=== PATIENT | female | born 1980 | race Caucasian/White ===

== ENCOUNTER 2020-09-26 15:37 | Outpatient (REF) | payer OTHER, SELFPAY ==
[2020-09-26 15:58] LABS: MANUAL DIFF FLAG NO
[2020-09-26 16:01] LABS: Basophils Percent Auto 0.2 % (0-2); Eosinophils Absolute Auto 0.1 X10*3/uL (0.0-0.4); Eosinophils Percent Auto 1.2 % (0-4); Hemoglobin 10.4 g/dl (12.0-16.0); Imm Gran Abs Auto 0.01 X10*3/uL (0.00-0.03); Imm Gran Pct Auto 0.2 % (0.0-0.4); Lymphocytes Absolute Auto 1.9 X10*3/uL (1.2-4.9); Lymphocytes Percent Auto 31.3 % (20-40); Mean Corpuscular HGB Conc 32.5 g/dl (31.0-35.0); Mean Corpuscular Hemoglobin 31.1 pg (27.0-33.0); Mean Corpuscular Volume 95.8 fL (80-98); Mean Platelet Volume 9.2 fL (9.4-12.3); Monocytes Absolute Auto 0.5 X10*3/uL (0.1-1.2); Monocytes Percent Auto 7.6 % (2-11); Neutrophils Absolute Auto 3.6 X10*3/uL (2.0-8.3); Neutrophils Percent Auto 59.5 % (45-73); Platelet Count 249 X10*3/uL (160-400); Red Blood Count 3.34 X10*6/uL (4.20-5.50); Red Cell Distribution Width 14.3 % (11.0-16.0)
[2020-09-26 16:35] LABS: Anion Gap 11 (12-20); Blood Urea Nitrogen 10 mg/dL (9-16); Calcium 8.5 mg/dL (8.4-10.2); Carbon Dioxide 26 mmol/L (22-29); Chloride 107 mmol/L (96-108); Estimated Glomerular Filt Rate > 60; Glucose Random 86 mg/dL (60-115); Potassium 3.7 mmol/L (3.3-5.1); Sodium 140 mmol/L (135-145)
[2020-09-26 16:56] LABS: Thyroid Stimulating Hormone 1.23 uIU/mL (0.32-4.0)
[2020-09-29 13:10] LABS: Folate 8.7 ng/mL (> or = 4.0); Vitamin B12 189 pg/mL (200-900)
== END 2020-09-26 15:38 | disposition home or self-care (01) ==
LOC: HO.LAB 15:37
PROVIDERS: Visit Provider Psychiatry & Neurology Neurology
DX: G43.909 Migraine, unspecified, not intractable, without status migrainosus (principal)
CPT/HCPCS: 36415; 80048; 82607; 82746; 84443; 85025

== ENCOUNTER 2020-12-06 15:58 | Outpatient (REF) | payer OTHER, SELFPAY ==
--- NOTE | ~2020-12-06 | MR_ITS ---
EXAMINATION: MRI OF THE BRAIN WITHOUT CONTRAST CLINICAL INFORMATION: Migraine with progressive memory problems. COMPARISON: There are no prior studies available for comparison. TECHNIQUE: MRI of the brain was obtained using routine sequences without contrast. FINDINGS: No diffusion abnormalities are identified to suggest an acute or subacute infarct. No mass effect or midline shift is seen. The ventricles are normal in size. Brain parenchymal signal is unremarkable. No extra-axial fluid collections are seen. The brainstem and cerebellum are normal. No pathologic magnetic susceptibility artifact is identified on the gradient refocused acquisition. The craniovertebral junction, marrow signal, and midline structures are normal. The major intracranial flow-voids at the level of the eek of Pe[place] are preserved. The dural venous sinus flow-voids are maintained. The mastoid air cells are well-aerated. There is mucoperiosteal thickening in the sphenoid and left greater than right ethmoid sinuses. MR/MR head/brain wo con IMPRESSION: 1. There are no acute bleeds or infarcts. No masses are demonstrated. There is mild paranasal sinus disease.
== END 2020-12-06 15:59 | disposition home or self-care (01) ==
LOC: HO.MRI 15:58
PROVIDERS: Visit Provider Psychiatry & Neurology Neurology
DX: G43.909 Migraine, unspecified, not intractable, without status migrainosus (principal)
CPT/HCPCS: 70551

== ENCOUNTER 2022-06-27 13:59 | Outpatient (REF) | payer OTHER, SELFPAY ==
--- NOTE | ~2022-06-27 | CT_ITS ---
EXAMINATION: CT HEAD WITHOUT CONTRAST CLINICAL INFORMATION: Tension headache. COMPARISON: MRI brain 12/06/2020. TECHNIQUE: Contiguous axial imaging was performed from the skull base to vertex without intravenous administration of contrast. This CT examination was performed using dose optimization techniques as appropriate, variously including the following: *Automated exposure control *Adjustment of mA and/or kV according to patient size (this includes techniques or standardized protocols for targeted exams where dose is matched to indication/reason for exam; i.e. extremities or head) *Use of iterative reconstruction technique DLP: 658 mGy-cm. FINDINGS: There is no acute intra-axial or extra-axial bleed, masses or midline shift the lateral ventricles are symmetrical in size and configuration without enlargement. There is no acute infarction evolution. No edema. The spears to white matter there differentiation is maintained normal. Bone windows reveal no calvarial abnormality. CT/CT head/brain wo IV con IMPRESSION: No acute intracranial process seen.
== END 2022-06-27 14:00 | disposition home or self-care (01) ==
LOC: HO.CT 13:59
PROVIDERS: Visit Provider Psychiatry & Neurology Neurology
DX: G44.209 Tension-type headache, unspecified, not intractable (principal)
CPT/HCPCS: 70450

== ENCOUNTER 2024-06-17 15:49 | Outpatient (REF) | payer OTHER, SELFPAY ==
--- NOTE | ~2024-06-17 | CT_ITS ---
EXAMINATION: CT HEAD WITHOUT CONTRAST CLINICAL INFORMATION: Migraine COMPARISON: CT brain 512 TECHNIQUE: Contiguous axial imaging was performed from the skull base to vertex without intravenous administration of contrast. This CT examination was performed using dose optimization techniques as appropriate, variously including the following: *Automated exposure control *Adjustment of mA and/or kV according to patient size (this includes techniques or standardized protocols for targeted exams where dose is matched to indication/reason for exam; i.e. extremities or head) *Use of iterative reconstruction technique DLP: 704 FINDINGS: There is no acute intra-axial, extra-axial bleed, masses or midline shift. There is no acute infarction in evolution. There is no edema the murray to white matter differentiation is maintained normal. The lateral ventricles are symmetrical in size and configuration without enlargement. Bone windows reveal no calvarial abnormality. There is no scalp soft tissue abnormality. Bilateral paranasal sinuses and mastoid air cells are well-aerated. There is no scalp soft tissue abnormality. CT/CT head/brain wo IV con IMPRESSION: No acute intracranial process seen. Electronically signed by: Bruce Stewart MD 06/17/2024 04:35 PM EDT
--- OUTSIDE RECORDS SUMMARY | 2024-06-17 15:52 | XMS_ITS | Encounter Summary ---
Author Organization [facility] Address [address] [place] [address] Care Team Providers Care Bilingual Receptionist Name Role Phone Jed Alonso MD Primary Care Provider [phone] Reason for Visit * Reason Onset Date Comments PRIOR AUTHORIZATION 06/14/2024 Encounter Details Date Type Department Care Team ([facility] st Contact Info) Description 06/14/2024 Telephone Endocrinology - [place] [address] [place] [address] Daniela Torres PA [address] [place] [address] PRIOR AUTHORIZATION Social History Tobacco Use Types Packs/Day Years Used Date Smoking Tobacco: Never Smokeless Tobacco: Never Alcohol Use Standard Drinks/Week Comments No 0 (1 standard drink = 0.6 oz pur e alcohol) Comments Unknown Sex and Gender Information Value Date Recorded Sex Assigned at Female 05/13/2024 1:43 PM EDT Legal Sex Female 12:14 AM EST Gender Identity Female 05/13/2024 1:43 PM EDT Sexual Orientation Straight 05/13/2024 1: 43 PM EDT documented as of this encounter Progress Notes * Ella Patterson - 06/14/2024 2:45 PM EDT Prior Authorization for Medication-do not complete and send this encounter unless you have the fax from the pharmacy. Is this a Cover My Meds request: [place] of Medication Dexcom G6 Sensors Dose of Medication What is the RX # from the faxed refill? [id number] How does patient take this med? Change sensor every 10 days, What Pharmacy did the fax come from: [facility] fax #: [phone] [employer] Information from fax: What Prescription Plan does the patient have? [email or web address] BIN/PCN if applicable: [id number] Cardholder ID: [id number] Person Code: [id number] Relationship Code: Insured Help desk phone: [phone] documented in this encounter Plan of Treatment Upcoming Encounters Date Type Department Care Team (Late st Contact Info) Description 07/07/2024 9:15 AM EDT Office Visit Bariatric Surgery - [place] [address] [phone] Orestes Yepez MD [address] [address] 09/02/2024 9:00 AM EDT Office Visit [facility] Hematology Oncology [address] [place] [phone] Opal Flores MD [address] [place] [phone] 11/25/2024 10:30 AM EDT Office Visit Internal Medicine [facility] 175 [facility] [address] [place] [phone] Jed Alonso MD [address] [address] documented as of this encounter Visit Diagnoses Not on filedocumented in this encounter Care Teams Bilingual Receptionist Relationship Specialty Start Date End Date Jed Alonso MD [address] [address] PCP - General Internal Medicine 01/01/18 documented as of this encounter
--- OUTSIDE RECORDS SUMMARY | 2024-06-17 15:52 | XMS_ITS | Clinical Summary ---
Author Organization [facility] Address [address] [place] [address] Care Team Providers Care Accounts Receivable Collector Name Role Phone Jed Alonso MD Primary Care Provider Unavailab le Allergies Active Allergy Reactions Criticality Noted Date Comments Diphenhydramine 05/19/2022 Penicillins 05/19/2022 Tuberculin Purified Protein Derivative 05/19/2022 Medications Medication Sig Dispensed Refills Start Date End Date Status atorvastatin (LIPITOR) tablet 20 mg 0 04/22/2022 Active busPIRone (BUSPAR) 10 MG tablet TAKE 1 TABLET BY MOUTH 3 TIMES DAILY FOR ANXIETY 0 04/22/2022 Active desvenlafaxine (PRISTIQ) 50 MG 24 hr tablet LAURA DELMIS TABLETA POR VIA ORAL CADA MANANA PARA ANSIEDAD Y DEPRESION 0 05/05/2022 Active dicyclomine (BENTYL) 10 MG capsule LAURA 1 CAPSULA POR VIA ORAL CUATRO VECES AL STANLEY ANTES DE LAS COMIDAS Y CADA NOCHE 0 04/22/2022 Active Trulicity 0.75 MG/0.5ML subcutaneous pen-injector INYECTAR 0.75MG POR VIA SUBCUTANEA CADA 7 FAGAN 0 05/08/2022 Active NovoLOG FLEXPEN 100 UNIT/ML injection PLEASE SEE ATTACHED FOR DETAILED DIRECTIONS 0 04/14/2022 Active Lantus SoloStar 100 UNIT/ML injection INYECTAR 30 UNIDADES POR VIA SUBCUTANEA TODO LOS FAGAN EN JULIO CESAR MANANA 0 05/05/2022 Active LORazepam (ATIVAN) 0.5 MG tablet LAURA DELMIS TABLETA POR VIA ORAL DELMIS VEZ AL STANLEY KARLOS SEA NECESARIO PARA ANSIEDAD 0 02/21/2022 Active lisinopril (PRINIVIL,ZESTRIL) tablet 20 mg LAURA 1 Y 1/2 TABLETAS POR VIA ORAL DIARIAMENTE 0 04/22/2022 Active zolpidem (AMBIEN) 10 MG tablet LAURA 1 TABLETA POR VIA ORAL A LA HORA DE ACOSTARSE PARA DORMIR 0 05/11/2022 Active ferrous sulfate 324 (65 Fe) MG EC tablet LAURA DELMIS (1) TABLETA POR VIA ORAL DELMIS VEZ AL STANLEY 30 tablet 11 07/02/2022 Active Active Problems Problem Noted Date Diagnosed Date Postoperative hematoma of sk in following dermatologic procedure 07/01/2022 Easy bruising 05/19/2022 Ecchymosis 05/19/2022 Postoperative hematoma of nunez bcutaneous tissue following non-dermatologic procedure 05/19/2022 Anxiety 05/19/2022 Night sweats 05/19/2022 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 05/19/2022 Family History Medical History Relation Name Comments Stroke Mother Cancer Paternal Grandmother Relation Name Status Comments Mother Paternal Grandmother Social History Tobacco Use Types Packs/Day Years Used Date Smoking Tobacco: Never Smokeless Tobacco: Never Tobacco Cessation:Counseling Given: Not Answered Alcohol Use Standard Drinks/Week Comments Not Currently 0 (1 standard drink = 0.6 oz pur e alcohol) Sex and Gender Information Value Date Recorded Sex Assigned at Not on file Gender Identity Not on file Sexual Orientation Not on file Job Start Date Occupation Industry Not on file Not on file Not on file Last Filed Vital Signs Vital Sign Reading Time Taken Comments Blood Pressure 126/80 09/03/2023 8:49 AM EDT Pulse 87 09/03/2023 8:49 AM EDT Temperature 36.7 ??C (98 ??F) 09/03/2023 8:49 AM EDT Respiratory Rate - - Oxygen Saturation 97% 09/03/2023 8:49 AM EDT Inhaled Oxygen Concentration - - Weight 75.2 kg (165 lb 12.8 oz) 09/03/2023 8:49 AM EDT Height 162.6 cm (5' 4 ) 09/03/2023 8:49 AM EDT Body Mass Index 28.46 09/03/2023 8:49 AM EDT Plan of Treatment Health Maintenance Due Date Last Done Comments Hepatitis B Vaccines (1 of 3 - 3-dose series) 1978 Hepatitis C Screening 1978 COVID-19 Vaccine (#1) 01/20/1979 Depression Screening 1990 BMI Counseling 1996 Preventative Health Evaluation 1996 DTap / Tdap / Td (1 - Tdap) 1997 Cervical Cancer Screening (P ap Smear) 07/22/1999 Colon Cancer Screening (Colonoscopy) 07/22/2023 Influenza Vaccine (#1) 2023 Pneumococcal Vaccine Aged Out 11/19/2015 No long er eligible based on patient's age to complete this topic RSV Ped < 20 months Aged Out No longe r eligible based on patient's age to complete this topic Care Teams Accounts Receivable Collector Relationship Specialty Start Date End Date Jed Alonso MD PCP - General Internal Medicine 03/04/22
--- OUTSIDE RECORDS SUMMARY | 2024-06-17 15:52 | XMS_ITS | Clinical Summary ---
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 Name Role Phone Jed Alonso MD Primary Care Provider [phone] Allergies Active Allergy Reactions Criticality Noted Date Comments Diphenhydramine 05/19/2022 Oxycodone Hives High 09/29/2022 Hives all over the body Penicillins 05/19/2022 Tuberculin, Purified Protein Derivative 05/19/2022 Medications busPIRone (BUSPAR) 10 mg tablet TAKE 1 TABLET BY MOUTH 3 TIMES DAILY FOR ANXIETY 04/23/19 23 Active desvenlafaxine succinate (PRISTIQ) 50 mg 24 hr tablet LAURA DELMIS TABLETA POR VIA ORAL CADA MANANA PARA ANSIEDAD Y DEPRESION 05/06/19 23 Active ferrous sulfate 324 mg (65 mg elemental iron) EC tablet LAURA DELMIS (1) TABLETA POR VIA ORAL DELMIS VEZ AL STANLEY 07/03/19 23 Active LORazepam (ATIVAN) 0.5 mg tablet LAURA DELMIS TABLETA POR VIA ORAL DELMIS VEZ AL ST[place] KARLOS SEA NECESARIO PARA ANSIEDAD 02/21/19 23 Active zolpidem (AMBIEN) 10 mg tablet LAURA 1 TABLETA POR VIA ORAL A LA HORA DE ACOSTARSE PARA DORMIR 05/12/19 23 Active cyclobenzaprine (FLEXERIL) 5 mg tablet LAURA 1 TABLETA POR VIA ORAL DELMIS VEZ AL STANLEY KARLOS SEA NECESARIO PARA ESPASMOS MUSCULARES A LA HORA DE ACOSTARSE 30 tablet 10 12/27/19 24 Active dicyclomine (BENTYL) 10 mg capsule LAURA 1 CAPSULA POR VIA ORAL CUATRO VECES AL STANLEY ANTES DE COMIDAS Y POR LA NOCHE 120 capsule 03/17/19 25 Active lisinopriL (PRINIVIL,ZESTRIL ) 20 mg tablet LAURA 1 Y 1/2 TABLETAS POR VIA ORAL DIARIAMENTE 45 tablet 03/17/19 25 Active atorvastatin (LIPITOR) 20 mg tablet LAURA 1 TABLETA POR VIA ORAL DELMIS VEZ AL STANLEY A LA HORA DE ACOSTARSE 30 tablet 03/17/19 25 Active FreeStyle Lancets 28 gauge lancets USE PARA EXAMINAR LA AZUCAR EN LA LIVAN DOS VECES AL STANLEY 100 each 03/17/19 25 Active blood-glucose sensor (Dexcom G7 Sensor) device Change sensor every 10 days 9 each 03/17/19 25 Active senna 8.6 mg tabletIndications :Inflammatory bowel diseases (IBD) LAURA 1 TABLETA POR VIA ORAL DELMIS VEZ AL STANLEY 30 tablet 03/29/19 25 Active pantoprazole (PROTONIX) 40 mg EC tabletIndications :LUQ pain Take 1 tablet (40 mg total) by mouth 1 (one) time each day before breakfast. Do not crush, chew, or split. 90 tablet 04/05/19 25 026 Active semaglutide (OZEMPIC) 1 mg/dose (4 mg/3 mL) injection penIndications:Ty pe 2 diabetes mellitus without complication, with long-term current use of insulin ([facility] V24, [facility] V28) Inject 1 mg under the skin every 7 (seven) days. 3 mL 04/14/19 25 Active blood sugar diagnostic (FreeStyle Lite Strips) test strip USE PARA EXAMINAR LA AZUCAR EN LA LIVAN SIMON VECES AL STANLEY. 100 strip 04/17/19 25 Active albuterol 2.5 mg /3 mL (0.083 %) nebulizer solution Take 3 mL (2.5 mg total) by nebulization every 4 (four) hours if needed for wheezing. 375 mL 04/17/19 25 Active insulin glargine U-300 (Toujeo SoloStar U-300 Insulin) 300 unit/mL (1.5 mL) CONCENTRATED injection pen 8 units SC at bedtime, when not in insulin pump 15 mL 04/27/19 25 Active pantoprazole (PROTONIX) 40 mg EC tablet Take 1 tablet (40 mg total) by mouth 1 (one) time each day. Do not crush, chew, or split. 30 each 11 05/03/19 25 026 Active ammonium lactate (AMLACTIN) 12 % cream Apply topically if needed for dry skin. 770 g 2 05/20/19 25 026 Active vitamin A 3,000 mcg (10,000 unit) capsule LAURA 1 CAPSULA POR VIA ORAL DELMIS VEZ AL STANLEY 30 capsule 11 06/10/19 25 Active vitamin A 3,000 mcg (10,000 unit) tabletIndications :Intestinal malabsorption following gastrectomy Take 1 tablet (10,000 Units total) by mouth 1 (one) time each day. 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 9) with comorbidity (CMS/HCC V24, CMS/HCC V28) 05/26/2017 Bipolar 1 disorder (CMS/HCC V24, CMS/[facility] V28) Nephrolithiasis 01/15/2017 Asthma 07/30/2016 Vitamin D deficiency 11/19/2015 PTSD (post-traumatic stress disorder) 09/01/2014 Encounters Date Type Department Care Team Description 06/14/2024 Telephone Endocrinology - [place] [id number] [place], [place] [phone] Daniela Torres PA PRIOR AUTHORIZATION 06/08/2024 3:45 PM EDT - 06/08/2024 11:59 PM EDT Hospital Encounter [facility] CT Scan [address] [place] [phone] LUQ pain; Rectal bleeding; History of gastric restrictive surgery; Hemorrhoids, unspecified hemorrhoid type Discharge Disposition: Home or Self Care 05/20/2024 9:45 AM EDT Office Visit Internal Medicine [facility] [address] [phone] Jed Alonso MD Diabetes mellitus type 2 in nonobese ([facility] V24, [facility] V28) (Primary Dx); Current mild episode of major depressive disorder, unspecified whether recurrent ([facility] V24); Hypercholesterolemia; Neck pain 05/19/2024 10:45 AM EDT Consult Orthopedic Surgery - [place] [address] [facility] [address] [place] [phone] Canelo Fink DPM Controlled type 2 diabetes with neuropathy ([facility] V24, [facility] V28) (Primary Dx); Left foot pain; Lumbosacral radiculopathy; Bunion, left 05/02/2024 3:00 PM EDT Office Visit Gastroenterology [address] [phone] Spencer Singh PA LUQ pain (Primary Dx); Rectal bleeding; History of gastric restrictive surgery; Hemorrhoids, unspecified hemorrhoid type; H/O: iron deficiency anemia; Gastroesophageal reflux disease with esophagitis without hemorrhage 04/25/2024 Telephone Endocrinology - [address] [phone] Daniela Torres PA Medication Problem 04/14/2024 11:00 AM EST Office Visit Endocrinology [address] [phone] Daniela Torres PA Type 2 diabetes mellitus without complication, with long-term current use of insulin (CMS/HCC V24, CMS/HCC V28) (Primary Dx) 04/07/2024 Telephone Endocrinology [place] [address] [place] [phone] Daniela Torres PA 04/05/2024 8:45 AM EST Office Visit Bariatric Surgery - [place] [address] [facility] [address] [place] [phone] Orestes Yepez MD Blood in stool (Primary Dx); LUQ pain; Class 1 obesity due to excess calories with serious comorbidity and body mass index (BMI) of 30.0 to 30.9 in adult; Intestinal malabsorption following gastrectomy 04/01/2024 9:45 AM EST Office Visit Pulmonolgy - [place] [address] [facility] [address] [place] [phone] Crys Rizzo MD Mild persistent asthma, unspecified whether complicated (Primary Dx) 03/22/2024 Telephone Endocrinology [address] [phone] Sonya Breen MA from Last 3 Months Surgical History Surgery Date Site/Laterality Comments OTHER SURGICAL HISTORY 02/20/19 PROCEDURE: MN LAPS GSTR RSTCV PX W/BYP LENNY-EN-Y LIMB <150 CM; COMMENT: Marleni CARPAL TUNNEL RELEASE PROCEDURE: HISTORICAL CARPAL TUNNEL REL SECTION PROCEDURE: HISTORICAL DELIVERY OTHER SURGICAL HISTORY PROCEDURE: HISTORY OTHER; COMMENT: Breast reduction OTHER SURGICAL HISTORY Left PROCEDURE: HISTORY OTHER; COMMENT: Ulnar nerve surgery OTHER SURGICAL HISTORY PROCEDURE: HISTORY OTHER; COMMENT: Hemorrhoids UPPER GASTROINTESTINAL ENDOSCOPY 04/2017 PROCEDURE: MN UPPER GI ENDOSCOPY PERFORMED; COMMENT: Performed by Dr. Pradhan in April 2017 UPPER GASTROINTESTINAL ENDOSCOPY 07/06/19 PROCEDURE: MN UPPER GI ENDOSCOPY PERFORMED; COMMENT: Normal post gastric bypass appearance, no ulcers. UPPER GASTROINTESTINAL ENDOSCOPY 01/11/20 PROCEDURE: UPPER GI ENDOSCOPY/EXAM; COMMENT: gastric bypass, random biopsy with mild chronic inflammation, NO H.pylori OTHER SURGICAL HISTORY PROCEDURE: HISTORICAL PANNICULECTOMY; COMMENT: Performed in January 2021 with subsequent hematoma requiring 2 units of blood ESOPHAGOGASTRODUODENOSCOPY 08/15/19 22 PROCEDURE: MN ESOPHAGOGASTRODUODENOSCOPY TRANSORAL DIAGNOSTIC; COMMENT: consistent with gastric bypass, no ulcers Medical History Medical History Date Comments Complications of bariatric procedures 05/26/2017 DX:Complications of bariatric procedures Gastrojejunal ulcer without hemorrhage or perforation 05/26/2017 DX:Gastrojejunal ulcer witho ut hemorrhage or perforation Severe obesity (BMI 35.0-39. 9) with comorbidity ([facility] V24, [facility] V28) 05/26/2017 DX:Severe obesity (BMI 35.0- 39.9) with comorbidity ([facility]) Anxiety 09/23/2017 DX:Anxiety Depression 09/23/2017 DX:Depression Diabetes mellitus, type 2 ([place]/[facility] V24, [facility] V28) 09/23/2017 DX:Diabetes mellitus, type 2 ([facility]); COMMENT: Resolved after Bariatric surgery, weight loss History of bariatric surgery 09/23/2017 DX: History of bariatric surgery; COMMENT: 02/20/17 Hypertension 09/23/2017 DX:Hypertension Asthma 07/30/2016 DX:Asthma Bipolar 1 disorder ([facility] V24, [facility] V28) 01/15/2017 DX:Bipolar 1 disorder ([facility]) Nephrolithiasis 01/15/2017 DX:Nephrolithias is PTSD (post-traumatic stress disorder) 09/01/2014 DX:PTSD (post-traumatic stress disorder) Abdominal cramping DX:Abdominal cramping Passage of loose stools DX:Passa ge of loose stools Epigastric pain DX:Epigastric pa in Epigastric pain DX:Epigastric pa in Esophageal reflux DX:Esophageal reflux Irritable bowel syndrome DX:Irri table bowel syndrome Hyperlipidemia DX:Hyperlipidemi a Rectal bleeding DX:Rectal bleedi ng Straining with stools DX:Straini ng with stools H/O bariatric surgery DX:H/O bar iatric surgery Epigastric pain DX:Epigastric pa in H/O hemorrhoidectomy DX:H/O hemo rrhoidectomy Family History Medical History Relation Name Comments Heart attack Maternal Grandmother Relation Name Status Comments Father Alive Maternal Grandmother Mother Alive Social History Tobacco Use Types Packs/Day Years Used Date Smoking Tobacco: Never Smokeless Tobacco: Never Tobacco Cessation:Counseling Given: Not Answered Alcohol Use Standard Drinks/Week Comments No 0 (1 standard drink = 0.6 oz pur e alcohol) Comments Unknown Sex and Gender Information Value Date Recorded Sex Assigned at Female 05/13/2024 1:43 PM EDT Legal Sex Female 12:14 AM EST Gender Identity Female 05/13/2024 1:43 PM EDT Sexual Orientation Straight 05/13/2024 1: 43 PM EDT Obstetrics History Last Filed Vital Signs Vital Sign Reading Time Taken Comments Blood Pressure 120/80 05/20/2024 9:43 AM EDT Pulse 74 05/20/2024 9:43 AM EDT Temperature 36.2 ??C (97.1 ??F) 05/20/2024 9:43 AM ED T Respiratory Rate 16 05/20/2024 9:43 AM EDT Oxygen Saturation 100% 04/01/2024 9:36 AM EST Inhaled Oxygen Concentration - - Weight 77.4 kg (170 lb 9.6 oz) 05/20/2024 9:43 A M EDT Height 162.6 cm (5' 4.02 ) 05/19/2024 11:31 AM E DT Body Mass Index 29.27 05/19/2024 11:31 AM EDT Plan of Treatment Upcoming Encounters Date Type Department Care Team (Late st Contact Info) Description 07/07/2024 9:15 AM EDT Office Visit Bariatric Surgery [facility] [address] [phone] Orestes Yepez MD [address] [phone] 09/02/2024 9:00 AM EDT Office Visit [facility] Hematology Oncology [address] [place] [phone] Opal Flores MD [address] [place] [phone] 11/25/2024 10:30 AM EDT Office Visit Internal Medicine [facility] 175 [facility] [address] [place] [phone] Jed Alonso MD [address] [address] Health Maintenance Due Date Last Done Comments Breast Cancer Screening 1978 Diabetes: Annual Foot Exam 1988 Diabetes: Annual Retina Eye Exam 1988 DTaP,Tdap,and Td Vaccines (1 - Tdap) 1997 Hepatitis B Vaccines (1 of 3 - 19+ 3-dose series) 1997 Cervical Cancer Screening: P ap Smear 07/22/1999 Pneumococcal Vaccine: Pediatrics (0 to 5 Years) and At-Risk Patients (6 to 64 Years) (2 of 2 - PCV) 11/18/2016 11/19/2015 Colorectal Cancer Screening: Colonoscopy 01/25/2022 Depression Screening 01/25/2022 HIV Screening 01/25/2022 Hepatitis C Screening 01/25/2022 Medicare Annual Wellness Visit 01/25/2022 Social Influencers of Health Screening 01/25/2022 COVID-19 Vaccine (3 - 2023-2 5 season) 2023 06/20/2020, 05/23/2020 Diabetes: Blood Sugar Contro l Test (HGBA1C) 09/14/2024 03/17/2024 Influenza Vaccine (Season Ended) 2024 Diabetes: Annual Urine Albumin-Creatinine Ratio (uACR) 03/17/2025 03/17/2024 Diabetes: Annual GFR (Glomerular Filtration Rate) 05/03/2025 05/03/2024, 03/17/2024 Hypertension/CHF/CAD Annual BMP Blood Test 05/03/2025 05/03/2024, 03/17/2024 Cholesterol Screening (Lipid Panel) 03/17/2029 03/17/2024 MMR Vaccines Aged Out 12/16/2017 No longer eligi ble based on patient's age to complete this topic HIB Vaccines Aged Out No longer eligi ble based on patient's age to complete this topic HPV Vaccines Aged Out No longer eligi ble based on patient's age to complete this topic Hepatitis A Vaccines Aged Out No long er eligible based on patient's age to complete this topic IPV Vaccines Aged Out No longer eligi ble based on patient's age to complete this topic Meningococcal ACWY Vaccine Aged Out N o longer eligible based on patient's age to complete this topic Meningococcal B Vaccine Aged Out No l onger eligible based on patient's age to complete this topic RSV Immunization Patients Under 20 months Aged Out No longer eligible b ased on patient's age to complete this topic Varicella Vaccines Aged Out No longer eligible based on patient's age to complete this topic Procedures Procedure Name Priority Date/Time Associated Diagnosis Comments CT ABDOMEN PELVIS W CONTRAST Routine 06/08/2024 4:34 PM EDT LUQ pain Rectal bleeding History of gastric restrictive surgery Hemorrhoids, unspecified hemorrhoid type XR LUMBAR SPINE 4+ VIEWS Routine 05/19/2024 12:00 PM EDT Left foot pain VITAMIN A Routine 05/04/2024 10:55 AM EDT LUQ pain Rectal bleeding History of gastric restrictive surgery Hemorrhoids, unspecified hemorrhoid type Intestinal malabsorption following gastrectomy CBC WITH AUTO DIFFERENTIAL Routine 05/03/2024 10:43 AM EDT LUQ pain Rectal bleeding History of gastric restrictive surgery Hemorrhoids, unspecified hemorrhoid type FOLATE Routine 05/03/2024 10:43 AM EDT Intestinal malabsorption following gastrectomy COPPER, SERUM Routine 05/03/2024 10:43 AM EDT Intestinal malabsorption following gastrectomy IRON AND TIBC Routine 05/03/2024 10:43 AM EDT Intestinal malabsorption following gastrectomy SELENIUM SERUM Routine 05/03/2024 10:43 AM EDT Intestinal malabsorption following gastrectomy VITAMIN B1 Routine 05/03/2024 10:43 AM EDT Intestinal malabsorption following gastrectomy VITAMIN B12 Routine 05/03/2024 10:43 AM EDT Intestinal malabsorption following gastrectomy VITAMIN D 25 HYDROXY Routine 05/03/2024 10:43 AM EDT Intestinal malabsorption following gastrectomy ZINC Routine 05/03/2024 10:43 AM EDT Intestinal malabsorption following gastrectomy CBC AND DIFFERENTIAL Routine 05/03/2024 10:43 AM EDT LUQ pain Rectal bleeding History of gastric restrictive surgery Hemorrhoids, unspecified hemorrhoid type COMPREHENSIVE METABOLIC PANEL Routine 05/03/2024 10:43 AM EDT LUQ pain Rectal bleeding History of gastric restrictive surgery Hemorrhoids, unspecified hemorrhoid type FERRITIN Routine 05/03/2024 10:43 AM EDT LUQ pain Rectal bleeding History of gastric restrictive surgery Hemorrhoids, unspecified hemorrhoid type POC GLUCOSE Routine 04/14/2024 10:57 AM EST Type 2 diabetes mellitus without complication, with long-term current use of insulin (CMS/[facility] V24, CMS/[facility] V28) MICROALBUMIN CREATININE URINE RATIO Routine 03/17/2024 2:44 PM EST Type 2 diabetes mellitus with other specified complication, with long-term current use of insulin (CMS/HCC V24, CMS/[facility] V28) HEMOGLOBIN A1C Routine 03/17/2024 2:44 PM EST Type 2 diabetes mellitus with other specified complication, with long-term current use of insulin (CMS/HCC V24, CMS/HCC V28) LIPID PANEL WITH REFLEX TO DIRECT LDL Routine 03/17/2024 2:44 PM EST Type 2 diabetes mellitus with other specified complication, with long-term current use of insulin (CMS/[facility] V24, CMS/[facility] V28) from Last 3 Months or Most Recently Relevant to Health Maintenance Results * CT Abdomen Pelvis w Contrast (06/08/2024 4:34 PM EDT) Anatomical Region Laterality Modality Body Computed Tomogra phy 06/09/2024 10:5 1 AM EDT Impressions 06/09/2024 11:03 AM EDT There is indistinctness around the anal canal and vagina. There is some low attenuation. There was a probable cyst in this area in 2021. No large drainable abscess suspected. No evidence of high-grade bowel obstruction. ?? -------- FINAL REPORT -------- Dictated By: Ren Joyce Dictated Date: 06/09/2024 10:51 ET Assigned Physician: Ren Joyce Reviewed and Electronically Signed By: Ren Joyce Signed Date: 06/09/2024 11:03 ET Workstation ID: [id number] Transcribed By: Self Edit Transcribed Date: 06/09/2024 10:51 ET Narrative 06/09/2024 11:03 AM EDT EXAMINATION: CT ABDOMEN/PELVIS WITH IV CONTRAST CLINICAL INFORMATION: Left-sided pain. ??Rectal bleeding. History of gastric bypass surgery. COMPARISON: Portions of previous CT 01/29/22 ?? TECHNIQUE: Multidetector CT. Helical examination of the abdomen and pelvis. Imaging performed after the IV administration of contrast. Reformatting in the coronal and sagittal planes. DLP: 1338 mGy-cm Dose optimization was performed including the use of low-dose iterative reconstruction technique with automatic exposure control based on patient size. Type of contrast: ISOVUE 370 Volume of IV contrast: 90 mL Volume of contrast discarded: 0 mL FINDINGS: The abdomen and pelvis are examined during the early phase of enhancement. LIVER: The liver is normal in size, shape, and attenuation. No focal hepatic lesion or biliary ductal dilatation is present. No additional liver findings. ?? BILIARY TRACT: ??There are clips in the expected region of the gallbladder. No significant biliary dilation. SPLEEN: Normal size. ??No focal lesion. ?? PANCREAS: No suspicious abnormality. ?? ADRENAL GLANDS: No suspicious abnormality. ?? KIDNEYS: No dilation of the intrarenal collecting system. The nephrograms are symmetric. No suspicious renal mass. No opaque renal calculus. ?? URINARY BLADDER: ??The bladder is not well distended. No definite focal abnormality. PELVIC VISCERA: ??The uterus is mildly prominent. There is low attenuation near the cervix. I suspect a nabothian cyst. The myometrium is somewhat heterogeneous. There may be a small enhancing myometrial mass along the fundus. Suspect previous section. There are bilateral adnexal cysts with some peripheral enhancement suggesting recent ovulation. The largest cyst on the right measures 3.8 cm. The upper third of the vagina is slightly hyperenhancing and there is some gas within the vaginal fornices. GASTROINTESTINAL TRACT: ?There is some abnormal low attenuation in the left side of the perineum and poor definition of the tissue planes around the anal canal. The region of the sphincter is somewhat indistinct. There is no definite intersphincteric cast. There is a large amount of fecal residue in the rectal vault. There is a large amount of fecal residue in the proximal colon. There is no CT evidence of acute appendicitis. There has been previous gastric bypass surgery. There is no evidence of high- grade small bowel obstruction. ABDOMINAL WALL: Evidence of previous surgery. No bowel hernia. ?? LYMPHOVASCULAR STRUCTURES AND FLUID: There is no abdominal aortic aneurysm. ??There are no enlarged lymph nodes. ??There is no free intraperitoneal fluid. ?? VISUALIZED LOWER CHEST: No suspicious abnormality. ?? MUSCULOSKELETAL: No acute or suspicious osseous abnormality. Procedure Note Ren Joyce MD - 06/09/2024 EXAMINATION: CT ABDOMEN/PELVIS WITH IV CONTRAST CLINICAL INFORMATION: Left-sided pain. Rectal bleeding. History of gastric bypass surgery. COMPARISON: Portions of previous CT 01/29/22 TECHNIQUE: Multidetector CT. Helical examination of the abdomen and pelvis. Imaging performed after the IV administration of contrast. Reformatting in the coronal and sagittal planes. DLP: 1338 mGy-cm Dose optimization was performed including the use of low-dose iterativereconstruction technique with automatic exposure control based on patientsize. Type of contrast: ISOVUE 370 Volume of IV contrast: 90 mL Volume of contrast discarded: 0 mL FINDINGS: The abdomen and pelvis are examined during the early phase ofenhancement. LIVER: The liver is normal in size, shape, and attenuation. No focalhepatic lesion or biliary ductal dilatation is present. No additionalliver findings. BILIARY TRACT: There are clips in the expected region of the gallbladder.No significant biliary dilation. SPLEEN: Normal size. No focal lesion. PANCREAS: No suspicious abnormality. ADRENAL GLANDS: No suspicious abnormality. KIDNEYS: No dilation of the intrarenal collecting system. The nephrogramsare symmetric. No suspicious renal mass. No opaque renal calculus. URINARY BLADDER: The bladder is not well distended. No definite focalabnormality. PELVIC VISCERA: The uterus is mildly prominent. There is low attenuationnear the cervix. I suspect a nabothian cyst. The myometrium is somewhatheterogeneous. There may be a small enhancing myometrial mass along thefundus. Suspect previous section. There are bilateral adnexal cysts with some peripheral enhancementsuggesting recent ovulation. The largest cyst on the right measures 3.8cm. The upper third of the vagina is slightly hyperenhancing and there issome gas within the vaginal fornices. GASTROINTESTINAL TRACT: There is some abnormal low attenuation in theleft side of the perineum and poor definition of the tissue planes aroundthe anal canal. The region of the sphincter is somewhat indistinct. Thereis no definite intersphincteric cast. There is a large amount of fecalresidue in the rectal vault. There is a large amount of fecal residue inthe proximal colon. There is no CT evidence of acute appendicitis. There has been previous gastric bypass surgery. There is no evidence ofhigh- grade small bowel obstruction. ABDOMINAL WALL: Evidence of previous surgery. No bowel hernia. LYMPHOVASCULAR STRUCTURES AND FLUID: There is no abdominal aorticaneurysm. There are no enlarged lymph nodes. There is no freeintraperitoneal fluid. VISUALIZED LOWER CHEST: No suspicious abnormality. MUSCULOSKELETAL: No acute or suspicious osseous abnormality. IMPRESSION: There is indistinctness around the anal canal and vagina. There is somelow attenuation. There was a probable cyst in this area in 2021. No large drainable abscess suspected. No evidence of high-grade bowelobstruction. -------- FINAL REPORT -------- Dictated By: Ren Joyce Dictated Date: 06/09/2024 10:51 ET Assigned Physician: Ren Joyce Reviewed and Electronically Signed By: Ren Joyce Signed Date: 06/09/2024 11:03 ET Workstation ID: [id number] Transcribed By: Self Edit Transcribed Date: 06/09/2024 10:51 ET Spencer ROY IM CT PROCEDURES Final Result * XR Lumbar Spine 4+ Views (05/19/2024 12:00 PM EDT) Anatomical Region Laterality Modality Spine, L-spine Computed Radiogr aphy 05/23/2024 4:11 PM EDT Impressions 05/23/2024 4:13 PM EDT No significant degenerative changes. -------- FINAL REPORT -------- Dictated By: Mariia Vasques Dictated Date: 05/23/2024 16:11 ET Assigned Physician: Mariia Vasques Reviewed and Electronically Signed By: Mariia Vasques Signed Date: 05/23/2024 16:13 ET Workstation ID: [id number] Transcribed By: Self Edit Transcribed Date: 05/23/2024 16:11 ET Narrative 05/23/2024 4:13 PM EDT XR LUMBAR SPINE 4 VIEWS Reason: foot pain Comparison: None FINDINGS: Mild dextrocurvature of the lumbar spine. ??No subluxation. ??Vertebral body heights and disc spaces are preserved. ??No significant facet arthropathy. ??Sacroiliac joints are intact. Procedure Note Mariia Vasques MD - 05/23/2024 XR LUMBAR SPINE 4 VIEWS Reason: foot pain Comparison: None FINDINGS: Mild dextrocurvature of the lumbar spine. No subluxation. Vertebral bodyheights and disc spaces are preserved. No significant facet arthropathy.Sacroiliac joints are intact. IMPRESSION: No significant degenerative changes. -------- FINAL REPORT -------- Dictated By: Mariia Vasques Dictated Date: 05/23/2024 16:11 ET Assigned Physician: Mariia Vasques Reviewed and Electronically Signed By: Mariia Vasques Signed Date: 05/23/2024 16:13 ET Workstation ID: [id number] Transcribed By: Self Edit Transcribed Date: 05/23/2024 16:11 ET us Canelo Fink DPM IMG XR PROCEDURES Final Res ult * (ABNORMAL) Vitamin A (05/04/2024 10:55 AM EDT) Vitamin A 29(L) 38 - 106 ug/dL 05/09/2024 7:37 AM EDT [facility] Comment: This test was developed and the performance characteristics determined by [facility]. It has not been cleared or approved by the FDA. The laboratory is regulated under CLIA as qualified to perform high-complexity testing. This test is used for patient testing purposes. It should not be regarded as investigational or for research. Test performed at [facility], [address] , [place], [place] ??[address] ? [phone] Emely Pocne MD, PhD - Cash Analyst Blood Venous blood specimen / Unknown Venipuncture / Unknown 05/04/2024 10:55 AM EDT 05/04/2024 11:23 AM EDT us Orestes Yepez MD LAB BLOOD ORDERABLES Final R esult [facility] [address] [place] [address] * (ABNORMAL) CBC auto differential (05/03/2024 10:43 AM EDT) WBC 4.3(L) 4.8 - 10.8 K/mcL LAB HEMETOLOGY METHOD 05/03/2024 12:59 PM EDT [facility] RBC 3.50(L) 3.80 - 4.80 M/mcL LAB HEMETOLOGY METHOD 05/03/2024 12:59 PM EDT [facility] Hemoglobin 10.7(L) 11.5 - 16.0 g/dL LAB HEMETOLOGY METHOD 05/03/2024 12:59 PM EDT [facility] Hematocrit 34.5(L) 35.0 - 47.0 % LAB HEMETOLOGY METHOD 05/03/2024 12:59 PM EDT [facility] MCV 99.7(H) 79.0 - 98.0 FL LAB HEMETOLOGY METHOD 05/03/2024 12:59 PM EDT [facility] MCH 30.9 27.0 - 32.0 pcg LAB HEMETOLOGY METHOD 05/03/2024 12:59 PM EDT [facility] MCHC 31.0(L) 32.0 - 37.0 g/dL LAB HEMETOLOGY METHOD 05/03/2024 12:59 PM EDT [facility] RDW 13.2 11.0 - 15.0 % LAB HEMETOLOGY METHOD 05/03/2024 12:59 PM [facility] Platelets 245 130 - 400 K/mcL LAB HEMETOLOGY METHOD 05/03/2024 12:59 [facility] MPV 9.9 7.0 - 11.0 FL LAB HEMETOLOGY METHOD 05/03/2024 12:59 [facility] NRBC 0.0 <1.0 % LAB HEMETOLOGY METHOD 05/03/2024 12:59 PM [facility] NRBC Absolute 0.00 <0.10 K/mcL LAB HEMETOLOGY METHOD 05/03/2024 12:59 PM [facility] Neutrophils Relative 54.6 % LAB HEMETOLOGY METHOD 05/03/2024 12:59 PM [facility] Lymphocytes Relative 36.3 % LAB HEMETOLOGY METHOD 05/03/2024 12:59 PM [facility] Monocytes Relative 8.0 % LAB HEMETOLOGY METHOD 05/03/2024 12:59 PM [facility] Eosinophils Relative 0.7 % LAB HEMETOLOGY METHOD 05/03/2024 12:59 PM [facility] Basophils Relative 0.2 % LAB HEMETOLOGY METHOD 05/03/2024 12:59 PM [facility] Immature Granulocytes Relative 0.2 % LAB HEMETOLOGY METHOD 05/03/2024 12:59 PM [facility] Neutrophils Absolute 2.33 1.50 - 7.00 K/mcL LAB HEMETOLOGY METHOD 05/03/2024 12:59 PM [facility] Lymphocytes Absolute 1.55 1.00 - 5.00 K/mcL LAB HEMETOLOGY METHOD 05/03/2024 12:59 PM EDT [facility] Monocytes Absolute 0.34 0.20 - 1.00 K/mcL LAB HEMETOLOGY METHOD 05/03/2024 12:59 PM EDT [facility] Eosinophils Absolute 0.03 0.00 - 0.50 K/[facility] LAB HEMETOLOGY METHOD 05/03/2024 12:59 PM EDT [facility] Basophils Absolute 0.01 0.00 - 0.20 K/mcL LAB HEMETOLOGY METHOD 05/03/2024 12:59 PM EDT [facility] Immature Granulocytes Absolute 0.01 0.00 - 0.03 K/mcL LAB HEMETOLOGY METHOD 05/03/2024 12:59 PM EDT [facility] Blood Venous blood specimen / Unknown Venipuncture / Unknown 05/03/2024 10:43 AM EDT 05/03/2024 10:43 AM EDT Spencer ROY LAB BLOOD ORDERABLES Final Resu lt [facility] [address] [place] [address], * (ABNORMAL) Iron and TIBC (05/03/2024 10:43 AM EDT) Iron 55 40 - 150 mcg/dL LAB CHEMISTRY METHOD 05/03/2024 4:08 PM EDT [facility] TIBC 442 250 - 450 mcg/dL LAB CHEMISTRY METHOD 05/03/2024 4:08 PM EDT [facility] Iron Saturation 12(L) 15 - 50 % LAB CHEMISTRY METHOD 05/03/2024 4:08 PM EDT [facility] Blood Venous blood specimen / Unknown Venipuncture / Unknown 05/03/2024 10:43 AM EDT 05/03/2024 10:43 AM EDT Orestes Yepez MD LAB BLOOD ORDERABLES Final R esult Performing Organization Address [facility]/ZIP Co de Phone Number [facility] [address] [place] [address], * Copper, serum (05/03/2024 10:43 AM EDT) Copper 896 810 - 1990 ug/L 05/05/2024 2:31 PM EDT [facility] Comment: Copper values may be elevated to twice the normal levels in . Elevated results may be due to sample collected in a non-certified trace element-free tube. This test was developed and the performance characteristics determined by [facility]. It has not been cleared or approved by the FDA. The laboratory is regulated under CLIA as qualified to perform high-complexity testing. This test is used for patient testing purposes. It should not be regarded as investigational or for research. Test performed at [facility], [address] , [place], [place] ??[address] ? [phone] Emely Ponce MD, PhD - Cash Analyst Blood Venous blood specimen / Unknown Venipuncture / Unknown 05/03/2024 10:43 AM EDT 05/03/2024 10:43 AM EDT Orestes Yepez MD LAB BLOOD ORDERABLES Final R esult Performing Organization Address City/[facility]/ZIP Co de Phone Number [facility] [address] [place] [address] * Zinc (05/03/2024 10:43 AM EDT) Zinc 60 60 - 130 ug/dL 05/05/2024 12:23 PM EDT [facility] Comment: Elevated results may be due to sample collected in a non-certified trace element-free tube. This test was developed and the performance characteristics determined by [facility]. It has not been cleared or approved by the FDA. The laboratory is regulated under CLIA as qualified to perform high-complexity testing. This test is used for patient testing purposes. It should not be regarded as investigational or for research. Test performed at [facility], [address] [facility], [place], [place] ??[address] ? [phone] Emely Ponce MD, PhD - Cash Analyst Blood Venous blood specimen / Unknown Venipuncture / Unknown 05/03/2024 10:43 AM EDT 05/03/2024 10:43 AM EDT us Orestes Yepez MD LAB BLOOD ORDERABLES Final R esult Performing Organization Address City/[facility]/ZIP Co de Phone Number [facility] [address], [place] [id number] * Selenium serum (05/03/2024 10:43 AM EDT) [facility] Signature Selenium 149 63 - 160 mcg/L 05/06/2024 9:43 PM EDT [facility] Comment: This test was developed and its analytical performance characteristics have been determined by [email or web address] [place], [place]. It has not been cleared or approved by the U.S. Food and Drug Administration. This assay has been validated pursuant to the CLIA regulations and is used for clinical purposes. Test Performed by [facility], [email or web address] [facility], [address] [place] [address] Alvaro Cheng M.D., Ph.D., Director of Laboratories , CLIA [id number] Blood Venous blood specimen / Unknown Venipuncture / Unknown 05/03/2024 10:43 AM EDT 05/03/2024 10:43 AM EDT us Orestes Yepez MD LAB BLOOD ORDERABLES Final R esult Performing Organization Address [facility]/ZIP Co de Phone Number [facility] [address] [place] [address] * (ABNORMAL) Vitamin D 25 hydroxy (05/03/2024 10:43 AM EDT) [facility] Vit D, 25-Hydroxy 26.1(L) 30.0 - 80.0 ng/mL LAB CHEMISTRY METHOD 05/03/2024 4:08 PM EDT [facility] Blood Venous blood specimen / Unknown Venipuncture / Unknown 05/03/2024 10:43 AM EDT 05/03/2024 10:43 AM EDT Orestes Yepez MD LAB BLOOD ORDERABLES Final R esult Performing Organization Address City/[facility]/ZIP Co de Phone Number [facility] [address] [place] [address], [place] [phone] * Vitamin B1 (05/03/2024 10:43 AM EDT) [facility] Vitamin B1 Whole Blood 43 38 - 122 ug/L 05/06/2024 6:41 AM EDT [facility] Comment: This test was developed and the performance characteristics determined by [facility]. It has not been cleared or approved by the FDA. The laboratory is regulated under CLIA as qualified to perform high-complexity testing. This test is used for patient testing purposes. It should not be regarded as investigational or for research. Test performed at [facility], [address] , [place], [place] ??[address] ? [phone] Emely Ponce MD, PhD - Cash Analyst Blood Venous blood specimen / Unknown Venipuncture / Unknown 05/03/2024 10:43 AM EDT 05/03/2024 10:43 AM EDT Orestes Yepez MD LAB BLOOD ORDERABLES Final R esult [facility] [address] [place] [address] * Folate (05/03/2024 10:43 AM EDT) [facility] Folate 11.5 2.8 - 17.0 ng/ml LAB CHEMISTRY METHOD 05/03/2024 4:08 PM EDT [facility] Blood Venous blood specimen / Unknown Venipuncture / Unknown 05/03/2024 10:43 AM EDT 05/03/2024 10:43 AM EDT us Orestes Yepez MD LAB BLOOD ORDERABLES Final R esult Performing Organization Address City/[facility]/ZIP Co de Phone Number [facility] [address] [place] [address], [place] [phone] * Ferritin (05/03/2024 10:43 AM EDT) [facility] Ferritin 8 8 - 252 ng/mL LAB CHEMISTRY METHOD 05/03/2024 4:08 PM EDT [facility] Blood Venous blood specimen / Unknown Venipuncture / Unknown 05/03/2024 10:43 AM EDT 05/03/2024 10:43 AM EDT us Spencer ROY LAB BLOOD ORDERABLES Final Resu lt Performing Organization Address [facility] Co de Phone Number [facility] [address] [place] [address], [place] [phone] * Vitamin B12 (05/03/2024 10:43 AM EDT) [facility] Vitamin B-12 292 250 - 900 pcg/mL LAB CHEMISTRY METHOD 05/03/2024 4:08 PM EDT [facility] Blood Venous blood specimen / Unknown Venipuncture / Unknown 05/03/2024 10:43 AM EDT 05/03/2024 10:43 AM EDT us Orestes Yepez MD LAB BLOOD ORDERABLES Final R esult [facility] [address] [place] [address], * (ABNORMAL) Comprehensive metabolic panel (05/03/2024 10:43 AM EDT) Sodium 136 133 - 145 mmol/L LAB CHEMISTRY METHOD 05/03/2024 4:08 PM [facility] Potassium 4.5 3.5 - 5.5 mmol/L LAB CHEMISTRY METHOD 05/03/2024 4:08 PM [facility] Comment:Hemolysis present Chloride 105 96 - 110 mmol/L LAB CHEMISTRY METHOD 05/03/2024 4:08 PM [facility] CO2 26 21 - 32 mmol/L LAB CHEMISTRY METHOD 05/03/2024 4:08 PM [facility] Anion Gap 5 3 - 11 LAB CHEMISTRY METHOD 05/03/2024 4:08 PM [facility] Glucose 81 70 - 100 mg/dL LAB CHEMISTRY METHOD 05/03/2024 4:08 PM [facility] BUN 16 5 - 25 mg/dL LAB CHEMISTRY METHOD 05/03/2024 4:08 PM [facility] Creatinine 0.68 0.50 - 1.10 mg/dL LAB CHEMISTRY METHOD 05/03/2024 4:08 PM [facility] eGFR 110 >=60 mL/min/1. 73m2 LAB CHEMISTRY METHOD 05/03/2024 4:08 PM [facility] Comment:Calculation based on the??Chronic Kidney Disease Epidemiology Collaboration (CKD-EPI) equation refit??without adjustment for race. BUN/Creatinine Ratio 23.5 LAB CHEMISTRY METHOD 05/03/2024 4:08 PM [facility] Calcium 9.0 8.5 - 10.5 mg/dL LAB CHEMISTRY METHOD 05/03/2024 4:08 PM [facility] AST (SGOT) 33 10 - 42 unit/L LAB CHEMISTRY METHOD 05/03/2024 4:08 PM EDT [facility] ALT (SGPT) 34 10 - 60 unit/L LAB CHEMISTRY METHOD 05/03/2024 4:08 PM EDT [facility] Alkaline Phosphatase 146(H) 42 - 121 unit/L LAB CHEMISTRY METHOD 05/03/2024 4:08 PM EDT [facility] Total Protein 7.0 6.0 - 8.0 g/dL LAB CHEMISTRY METHOD 05/03/2024 4:08 PM EDT [facility] Albumin 3.5 3.2 - 5.0 g/dL LAB CHEMISTRY METHOD 05/03/2024 4:08 PM EDT [facility] Total Bilirubin 0.5 0.0 - 1.4 mg/dL LAB CHEMISTRY METHOD 05/03/2024 4:08 PM EDT [facility] Blood Venous blood specimen / Unknown Venipuncture / Unknown 05/03/2024 10:43 AM EDT 05/03/2024 10:43 AM EDT Spencer ROY LAB BLOOD ORDERABLES Final Resu lt [facility] [address] [place] [address], [place] [phone] * POC glucose manually resulted (04/14/2024 10:57 AM EST) Glucose POC 79 mg/dL Comment:Non fasting Blood Capillary blood specimen / Unknown 04/14/2024 10:57 AM EST us Daniela ROY POINT OF CARE TEST ENTER/ED IT ORDERABLES Final Result * Lipid panel with reflex to direct LDL (03/17/2024 2:44 PM EST) Cholesterol 156 0 - 200 mg/dL LAB CHEMISTRY METHOD 03/17/2024 5:05 PM EST [facility] Triglycerides 49 0 - 150 mg/dL LAB CHEMISTRY METHOD 03/17/2024 5:05 PM [facility] HDL 83 >=40 mg/dL LAB CHEMISTRY METHOD 03/17/2024 5:05 PM [facility] LDL Calculated 63 0 - 100 mg/dL LAB CHEMISTRY METHOD 03/17/2024 5:05 PM [facility] VLDL Cholesterol Rommel 9.8 mg/dL LAB CHEMISTRY METHOD 03/17/2024 5:05 PM [facility] Non HDL Chol. (LDL+VLDL) 73 <145 mg/dL LAB CHEMISTRY METHOD 03/17/2024 5:05 PM [facility] Chol/HDL Ratio 1.9 0.0 - 4.4 LAB CHEMISTRY METHOD 03/17/2024 5:05 PM [facility] Blood Venous blood specimen / Unknown Venipuncture / Unknown 03/17/2024 2:44 PM EST 03/17/2024 2:44 PM EST us Daniela ROY LAB BLOOD ORDERABLES Final Result [facility] [address] [place] [address], [place] [phone] * Microalbumin creatinine urine ratio (03/17/2024 2:44 PM EST) Creatinine, Urine 184.0 mg/dL LAB CHEMISTRY METHOD 03/17/2024 5:46 PM [facility] Microalb, Ur 10.0 0.0 - 29.0 mg/L LAB CHEMISTRY METHOD 03/17/2024 5:46 PM [facility] Microalb/Creat Ratio 5 <30 mg/g creat LAB CHEMISTRY METHOD 03/17/2024 5:46 PM [facility] Urine Urine specimen from urethra / Unknown Non-blood Collection / Unknown 03/17/2024 2:44 PM EST 03/17/2024 2:44 PM EST Daniela ROY LAB URINE ORDERABLES Final Result Performing Organization Address City/[facility]/ZIP Co de Phone Number [facility] [address] [place] [address], [place] [phone] * Hemoglobin A1c (03/17/2024 2:44 PM EST) Hemoglobin A1C 5.9 <6.5 % LAB CHEMISTRY METHOD 03/17/2024 7:31 PM EST [facility] Mean Bld Glu Estim. 123 mg/dL LAB CHEMISTRY METHOD 03/17/2024 7:31 PM EST [facility] Blood Venous blood specimen / Unknown Venipuncture / Unknown 03/17/2024 2:44 PM EST 03/17/2024 2:44 PM EST Daniela ROY LAB BLOOD ORDERABLES Final Result Performing Organization Address City/[facility]/ZIP Co de Phone Number [facility] [address] [place] [address], [place] [phone] from Last 3 Months or Most Recently Relevant to Health Maintenance Insurance [facility] [employer] Member Subscriber Plan / Payer (Ef fective 2019-Present) Name:Lo Olson Relation to Subscriber:Self Name:Lo Olson Payer ID:[id number] Group ID:[id number] Type:Not on file Address: [place] [address] [address] [address] Care Teams Three Dimensional Map Modeler Relationship Specialty Start Date End Date Jed Alonso MD [address] [place] [phone] PCP - General Internal Medicine 01/01/18
== END 2024-06-17 15:50 | disposition home or self-care (01) ==
LOC: HO.CT 15:49
PROVIDERS: PCP Internal Medicine; Visit Provider Registered Nurse
DX: G43.909 Migraine, unspecified, not intractable, without status migrainosus (principal)
CPT/HCPCS: 70450

== ENCOUNTER → 2024-06-17 15:57 | Outpatient (BNV) | payer OTHER, SELFPAY | PROVIDERS: PCP Internal Medicine; Visit Provider Radiology Diagnostic Radiology | DX: G43.909 Migraine, unspecified, not intractable, without status migrainosus (principal) | CPT/HCPCS: 70450 ==

== ENCOUNTER 2024-06-30 11:33 | Outpatient (REF) | payer OTHER, SELFPAY ==
[2024-06-30 11:54] LABS: MANUAL DIFF FLAG NO
[2024-06-30 12:16] LABS: Basophils Percent Auto 0.4 % (0-2); Eosinophils Absolute Auto 0.1 X10*3/uL (0.0-0.4); Eosinophils Percent Auto 2.8 % (0-4); Hematocrit 32.3 % (37.0-47.0); Hemoglobin 10.2 g/dl (12.0-16.0); Imm Gran Abs Auto 0.01 X10*3/uL (0.00-0.03); Imm Gran Pct Auto 0.2 % (0.0-0.4); Lymphocytes Absolute Auto 1.9 X10*3/uL (1.2-4.9); Lymphocytes Percent Auto 41.2 % (20-40); Mean Corpuscular HGB Conc 31.6 g/dl (31.0-35.0); Mean Corpuscular Hemoglobin 30.3 pg (27.0-33.0); Mean Corpuscular Volume 95.8 fL (80.0-98.0); Mean Platelet Volume 9.3 fL (9.4-12.3); Monocytes Absolute Auto 0.4 X10*3/uL (0.1-1.2); Monocytes Percent Auto 9.6 % (2-11); Neutrophils Absolute Auto 2.1 x10*3/uL (2.0-8.3); Neutrophils Percent Auto 45.8 % (45-73); Platelet Count 238 X10*3/uL (160-400); Red Blood Count 3.37 X10*6/uL (4.20-5.50); Red Cell Distribution Width 13.4 % (11.0-16.0); White Blood Count 4.6 X10*3/uL (4.8-10.8)
--- OUTSIDE RECORDS SUMMARY | 2024-06-30 12:40 | XMS_ITS | Clinical Summary ---
Author Organization [facility] Address [address] [place] [address] Care Team Providers Care Laboratory Geneticist Name Role Phone Jed Alonso MD Primary [...] age to complete this topic Care Teams Laboratory Geneticist Relationship Specialty Start Date End Date Jed Alonso MD PCP - General Internal Medicine 03/04/22
--- OUTSIDE RECORDS SUMMARY | 2024-06-30 12:40 | XMS_ITS | Encounter Summary ---
Author Organization [facility] Address [address] [place] [address] Care Team Providers Care Elevator Starter Name Role Phone Jed Alonso MD Primary Care Provider [phone] Reason for Visit * Reason Onset Date Comments Request For Order(s) 06/30/2024 DME Encounter Details Date Type Department Care Team ([facility] st Contact Info) Description 06/30/2024 Telephone Internal Medicine - [place] 175 [facility] [address] [place] [phone] Jed Alonso MD 175 [facility] [address] [place] [address] Request For Order(s) (DME) Social History Tobacco Use Types Packs/Day Years [...] as of this encounter Progress Notes * Yuridia Martin MA - 06/30/2024 11:25 AM EDT Faxed to [employer] [phone] * Yuridia Martin MA - 06/30/2024 10:59 AM EDT Patient does not have osteoarthritis dx documented. Ortho noted Lumbosacral radiculopathy. DME pended. * Ary Vázquez Joey - 06/30/2024 10:36 AM EDT Name of Product: grab bar/shower Shower chair Specific information about product stability concern # Needed 1 each Reason patient is asking for this supply? Osteoarthritis bilat knee Have you received this supply before? If yes , when?: NO. Has Patient been seen in the last 6 months yes 05-20-2024 If NO, Please book appt before DME can be ordered Have you discussed the need for this supply with a provider at a recent visit? no If yes, with who and when? N/a When completed, SHIPPING ADDRESS: Have you told the patient it will take 7-10 days for completion of this request? yes documented in this encounter Plan of Treatment Upcoming Encounters Date Type Department Care Team (Late st Contact Info) Description 07/07/2024 9:15 AM EDT Office Visit Bariatric Surgery - [place] [address] [phone] Orestes Yepez MD [address] [address] 09/02/2024 9:00 AM EDT Office Visit [facility] Hematology Oncology [address] [place] [phone] Opal Flores MD [address] [place] [phone] 11/25/2024 10:30 AM EDT Office Visit Internal Medicine - [place] 175 [facility] [address] [place] [phone] Jed Alonso MD 175 [facility] [address] [place] [address] documented as of this encounter Visit Diagnoses Diagnosis Lumbosacral radiculopathy- Primary Thoracic or lumbosacral neuritis or radiculitis, unspecified Cervical radiculitis Brachial neuritis or radiculitis nos documented in this encounter Orders General Supply Count Last Ordered Date First Or dered Date BATH/SHOWER CHAIR 1 06/30/2024 GENERAL SUPPLY 1 06/30/2024 documented in this encounter Care Teams Elevator Starter Relationship Specialty Start Date End Date Jed Alonso MD [address] [address] PCP - General Internal Medicine 01/01/18 documented as of this encounter
--- OUTSIDE RECORDS SUMMARY | 2024-06-30 12:40 | XMS_ITS | Clinical Summary ---
Author Organization [address] [place] [address] [place] [phone] Phone Care Team Providers Care Coat Feller Name Role Phone Jed Alonso MD Primary Care Provider Allergies Active Allergy Reactions Criticality Noted Date [...] complication, with long-term current use of insulin ([facility] V24, [facility] V28) Inject 1 mg under the [...] Active Problems Problem Noted Date Diagnosed Date Cervical radiculitis 06/30/2024 Abdominal cramping 01/13/2024 Epigastric pain 01/13/2024 Passage [...] (BMI 35.0-39. 9) with comorbidity (CMS/HCC V24, CMS/[facility] V28) 05/26/2017 Bipolar 1 disorder (CMS/HCC V24, CMS/[facility] V28) Nephrolithiasis 01/15/2017 Asthma 07/30/2016 Vitamin D deficiency 11/19/2015 PTSD (post-traumatic stress disorder) 09/01/2014 Encounters Date Type Department Care Team Description 06/30/2024 Telephone Internal Medicine - [place] [address] [phone] Jed Alonso MD Request For Order(s) (DME) 06/14/2024 Telephone Endocrinology [address] [phone] Daniela Torres PA PRIOR AUTHORIZATION 06/08/2024 3:45 PM EDT - 06/08/2024 11:59 PM EDT Hospital Encounter [facility] CT Scan [address] [place] [phone] LUQ pain; Rectal bleeding; History of gastric restrictive surgery; Hemorrhoids, unspecified hemorrhoid type Discharge Disposition: Home or Self Care 05/20/2024 9:45 AM EDT Office Visit Internal Medicine - [address] [phone] Jed Alonso MD Diabetes mellitus type 2 in nonobese (CMS/HCC V24, CMS/[facility] V28) (Primary Dx); Current mild episode of major depressive disorder, unspecified whether recurrent (CMS/HCC V24); Hypercholesterolemia; Neck pain 05/19/2024 10:45 AM EDT Consult Orthopedic Surgery - [place] [address] 175 [facility] [address] [place] [phone] Canelo Fink, MIRACLE Controlled type 2 diabetes with neuropathy (CMS/HCC V24, CMS/[facility] V28) (Primary Dx); Left foot pain; Lumbosacral radiculopathy; Bunion, left 05/02/2024 3:00 PM EDT Office Visit Gastroenterology - [place] [address] [phone] Spencer Singh PA LUQ pain (Primary Dx); Rectal bleeding; History of gastric restrictive surgery; Hemorrhoids, unspecified hemorrhoid type; H/O: iron deficiency anemia; Gastroesophageal reflux disease with esophagitis without hemorrhage 04/25/2024 Telephone Endocrinology - [place] [address] [place], [place] [phone] Daniela Torres PA Medication Problem 04/14/2024 11:00 AM EST Office Visit Endocrinology - [address] [phone] Daniela Torres PA Type 2 diabetes mellitus without complication, with long-term current use of insulin (CMS/HCC V24, CMS/HCC V28) (Primary Dx) 04/07/2024 Telephone Endocrinology - [address] [phone] Daniela Torres PA 04/05/2024 8:45 AM EST Office Visit Bariatric Surgery - [place] [address] [facility] [address] [place] [address] Orestes Yepez MD Blood in stool (Primary Dx); LUQ pain; Class 1 obesity due to excess calories with serious comorbidity and body mass index (BMI) of 30.0 to 30.9 in adult; Intestinal malabsorption following gastrectomy from Last 3 Months Surgical History Surgery Date Site/Laterality Comments OTHER SURGICAL HISTORY 02/20/19 PROCEDURE: [place] LAPS GSTR RSTCV PX W/BYP LENNY-EN-Y LIMB <150 CM; COMMENT: Marleni CARPAL TUNNEL RELEASE PROCEDURE: HISTORICAL CARPAL TUNNEL REL SECTION PROCEDURE: HISTORICAL DELIVERY OTHER SURGICAL HISTORY PROCEDURE: HISTORY OTHER; COMMENT: Breast reduction OTHER SURGICAL HISTORY Left PROCEDURE: HISTORY OTHER; COMMENT: Ulnar nerve surgery OTHER SURGICAL HISTORY PROCEDURE: HISTORY OTHER; COMMENT: Hemorrhoids UPPER GASTROINTESTINAL ENDOSCOPY 04/2017 PROCEDURE: [place] UPPER GI ENDOSCOPY PERFORMED; COMMENT: Performed by Dr. Pradhan in April 2017 UPPER GASTROINTESTINAL ENDOSCOPY 07/06/19 PROCEDURE: [place] UPPER GI ENDOSCOPY PERFORMED; COMMENT: Normal post gastric bypass appearance, no ulcers. 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 9) with comorbidity ([facility] V24, [facility] V28) 05/26/2017 DX:Severe obesity (BMI 35.0- 39.9) with comorbidity ([facility]) Anxiety 09/23/2017 DX:Anxiety Depression 09/23/2017 DX:Depression Diabetes mellitus, type 2 ([place]/[facility] V24, [facility] V28) 09/23/2017 DX:Diabetes mellitus, type 2 ([facility]); COMMENT: Resolved after Bariatric surgery, weight loss History of bariatric surgery 09/23/2017 DX: History of bariatric surgery; COMMENT: 02/20/17 Hypertension 09/23/2017 DX:Hypertension Asthma 07/30/2016 DX:Asthma Bipolar 1 disorder ([facility] V24, [facility] V28) 01/15/2017 DX:Bipolar 1 disorder ([facility]) Nephrolithiasis 01/15/2017 DX:Nephrolithias is PTSD (post-traumatic [...] 9:15 AM EDT Office Visit Bariatric Surgery [facility] [address] [phone] Orestes Yepez MD [address] [address] 09/02/2024 9:00 AM EDT Office Visit [facility] Hematology Oncology [address] [place] [phone] Opal Flores MD [address] [place] [phone] 11/25/2024 10:30 AM EDT Office Visit Internal Medicine [facility] [address] [phone] Jed Alonso MD [address] [address] Health Maintenance Due Date Last Done Comments [...] use of insulin (CMS/HCC V24, CMS/HCC V28) MICROALBUMIN CREATININE URINE RATIO Routine 03/17/2024 2:44 PM EST Type 2 diabetes mellitus with other specified complication, with long-term current use of insulin (CMS/HCC V24, CMS/HCC V28) HEMOGLOBIN A1C Routine 03/17/2024 2:44 PM EST Type 2 diabetes mellitus with other specified complication, with long-term current use of insulin (CMS/HCC V24, CMS/HCC V28) LIPID PANEL WITH REFLEX TO DIRECT LDL Routine 03/17/2024 2:44 PM EST Type 2 diabetes mellitus with other specified complication, with long-term current use of insulin (CMS/HCC V24, CMS/HCC V28) from Last 3 Months or Most [...] Signed Date: 06/09/2024 11:03 ET Workstation ID: [id number] Transcribed By: Self Edit Transcribed Date: 06/09/2024 [...] Signed Date: 06/09/2024 11:03 ET Workstation ID: [id number] Transcribed By: Self Edit Transcribed Date: 06/09/2024 10:51 ET Spencer ROY IMG CT PROCEDURES Final Result * XR Lumbar [...] Signed Date: 05/23/2024 16:13 ET Workstation ID: [id number] Transcribed By: Self Edit Transcribed Date: 05/23/2024 [...] Signed Date: 05/23/2024 16:13 ET Workstation ID: [id number] Transcribed By: Self Edit Transcribed Date: 05/23/2024 16:11 ET Canelo Fink DPM IMG XR PROCEDURES Final Res ult * (ABNORMAL) Vitamin A (05/04/2024 10:55 AM EDT) [facility] Vitamin A 29(L) 38 - 106 ug/dL 05/09/2024 7:37 AM EDT [facility] Comment: This test was developed and the performance characteristics determined by [facility]. It has not been cleared or approved by the FDA. The laboratory is regulated under CLIA as qualified to perform high-complexity testing. This test is used for patient testing purposes. It should not be regarded as investigational or for research. Test performed at [facility], [address], [place], [place] ??[address] ? [phone] Emely Ponce MD, PhD - Blindstitch Lapel Padder Blood Venous blood specimen / Unknown Venipuncture / Unknown 05/04/2024 10:55 AM EDT 05/04/2024 11:23 AM EDT us Orestes Yepez MD LAB BLOOD ORDERABLES Final R esult [facility] [address] [place] [address] * (ABNORMAL) CBC auto differential (05/03/2024 10:43 AM EDT) WBC 4.3(L) 4.8 - 10.8 K/mcL LAB HEMETOLOGY METHOD 05/03/2024 12:59 PM EDT [facility] RBC 3.50(L) 3.80 - 4.80 M/mcL LAB HEMETOLOGY METHOD 05/03/2024 12:59 PM EDT [facility] Hemoglobin 10.7(L) 11.5 - 16.0 g/dL LAB HEMETOLOGY METHOD 05/03/2024 12:[facility] Hematocrit 34.5(L) 35.0 - 47.0 % LAB HEMETOLOGY METHOD 05/03/2024 12:59 PM EDT [facility] MCV 99.7(H) 79.0 - 98.0 FL LAB HEMETOLOGY METHOD 05/03/2024 12:59 PM EDT [facility] MCH 30.9 27.0 - 32.0 pcg LAB HEMETOLOGY METHOD 05/03/2024 12:59 PM EDT [facility] MCHC 31.0(L) 32.0 - 37.0 g/dL LAB HEMETOLOGY METHOD 05/03/2024 12:59 PM EDT [facility] RDW 13.2 11.0 - 15.0 % LAB HEMETOLOGY METHOD 05/03/2024 12:59 PM EDT [facility] Platelets 245 130 - 400 K/mcL LAB HEMETOLOGY METHOD 05/03/2024 12:59 PM EDT [facility] MPV 9.9 7.0 - 11.0 FL LAB HEMETOLOGY METHOD 05/03/2024 12:59 PM EDT [facility] NRBC 0.0 <1.0 % LAB HEMETOLOGY METHOD 05/03/2024 12:59 PM EDT [facility] NRBC Absolute 0.00 <0.10 K/mcL LAB HEMETOLOGY METHOD 05/03/2024 12:59 [facility] Neutrophils Relative 54.6 % LAB HEMETOLOGY METHOD 05/03/2024 12:59 [facility] Lymphocytes Relative 36.3 % LAB HEMETOLOGY METHOD 05/03/2024 12:59 [facility] Monocytes Relative 8.0 % LAB HEMETOLOGY METHOD 05/03/2024 12:59 PM [facility] Eosinophils Relative 0.7 % LAB HEMETOLOGY METHOD 05/03/2024 12:59 PM [facility] Basophils Relative 0.2 % LAB HEMETOLOGY METHOD 05/03/2024 12:59 PM EDT [facility] Immature Granulocytes Relative 0.2 % LAB HEMETOLOGY METHOD 05/03/2024 12:59 PM EDT [facility] Neutrophils Absolute 2.33 1.50 - 7.00 K/mcL LAB HEMETOLOGY METHOD 05/03/2024 12:59 PM EDT [facility] Lymphocytes Absolute 1.55 1.00 - 5.00 K/mcL LAB HEMETOLOGY METHOD 05/03/2024 12:59 PM EDT [facility] Monocytes Absolute 0.34 0.20 - 1.00 K/mcL LAB HEMETOLOGY METHOD 05/03/2024 12:59 PM EDT [facility] Eosinophils Absolute 0.03 0.00 - 0.50 K/mcL LAB HEMETOLOGY METHOD 05/03/2024 12:59 PM EDT [facility] Basophils Absolute 0.01 0.00 - 0.20 K/mcL LAB HEMETOLOGY METHOD 05/03/2024 12:59 PM EDT [facility] Immature Granulocytes Absolute 0.01 0.00 - 0.03 K/mcL LAB HEMETOLOGY METHOD 05/03/2024 12:59 PM EDT [facility] Blood Venous blood specimen / Unknown Venipuncture / Unknown 05/03/2024 10:43 AM EDT 05/03/2024 10:43 AM EDT Spencer ROY LAB BLOOD ORDERABLES Final Resu lt [facility] [address] [place] [address], [place] [phone] * (ABNORMAL) Iron and TIBC (05/03/2024 10:43 AM EDT) Iron 55 40 - 150 mcg/dL LAB CHEMISTRY METHOD 05/03/2024 4:08 PM EDT [facility] TIBC 442 250 - 450 mcg/dL LAB CHEMISTRY METHOD 05/03/2024 4:08 PM EDT [facility] Iron Saturation 12(L) 15 - 50 % LAB CHEMISTRY METHOD 05/03/2024 4:08 PM EDT [facility] Blood Venous blood specimen / Unknown Venipuncture / Unknown 05/03/2024 10:43 AM EDT 05/03/2024 10:43 AM EDT us Orestes Yepez MD LAB BLOOD ORDERABLES Final R esult [facility] [address] [place] [address], [place] [phone] * Copper, serum (05/03/2024 10:43 AM EDT) Copper 896 810 - 1990 ug/L 05/05/2024 2:31 PM EDT [facility] Comment: Copper values may be elevated to twice the normal levels in . Elevated results may be due to sample collected in a non-certified trace element-free tube. This test was developed and the performance characteristics determined by [facility]. It has not been cleared or approved by the FDA. The laboratory is regulated under CLIA as qualified to perform high-complexity testing. This test is used for patient testing purposes. It should not be regarded as investigational or for research. Test performed at [facility], [address] [place], [place] ??[address] ? [phone] mEely Ponce MD, PhD - Blindstitch Lapel Padder Blood Venous blood specimen / Unknown Venipuncture / Unknown 05/03/2024 10:43 AM EDT 05/03/2024 10:43 AM EDT Orestes Yepez MD LAB BLOOD ORDERABLES Final R esult [facility] [address] [place] [address] * Zinc (05/03/2024 10:43 AM EDT) Zinc 60 60 - 130 ug/dL 05/05/2024 12:23 PM EDT [facility] Comment: Elevated results may be due to sample collected in a non-certified trace element-free tube. This test was developed and the performance characteristics determined by [facility]. It has not been cleared or approved by the FDA. The laboratory is regulated under CLIA as qualified to perform high-complexity testing. This test is used for patient testing purposes. It should not be regarded as investigational or for research. Test performed at [facility], [address] [facility], [place], [place] ??[address] ? [phone] Emely Ponce MD, PhD - Blindstitch Lapel Padder Blood Venous blood specimen / Unknown Venipuncture / Unknown 05/03/2024 10:43 AM EDT 05/03/2024 10:43 AM EDT Orestes Yepez MD LAB BLOOD ORDERABLES Final R esult Performing Organization Address City/[facility]/ZIP Co de Phone Number [facility] [address] [place] [address] * Selenium serum (05/03/2024 10:43 AM EDT) Pathologist [facility] Selenium 149 63 - 160 mcg/L 05/06/2024 9:43 PM EDT [facility] Comment: This test was developed and its analytical performance characteristics have been determined by [employer] [place] [place]. It has not been cleared or approved by the U.S. Food and Drug Administration. This assay has been validated pursuant to the CLIA regulations and is used for clinical purposes. Test Performed by [facility], [facility] [facility], [address] [place] [address] Alvaro Cheng M.D., Ph.D., Director of Laboratories , CLIA [id number] Blood Venous blood specimen / Unknown Venipuncture / Unknown 05/03/2024 10:43 AM EDT 05/03/2024 10:43 AM EDT us Orestes Yepez MD LAB BLOOD ORDERABLES Final R esult Performing Organization Address [facility]/ZIP Co de Phone Number [facility] [address] [place], [place] [id number] * (ABNORMAL) Vitamin D 25 hydroxy (05/03/2024 10:43 AM EDT) Vit D, 25-Hydroxy 26.1(L) 30.0 - 80.0 ng/mL LAB CHEMISTRY METHOD 05/03/2024 4:08 PM EDT [facility] Blood Venous blood specimen / Unknown Venipuncture / Unknown 05/03/2024 10:43 AM EDT 05/03/2024 10:43 AM EDT Orestes Yepez MD LAB BLOOD ORDERABLES Final R esult [facility]) [facility] [address] [place] [address], * Vitamin B1 (05/03/2024 10:43 AM EDT) [facility] Vitamin B1 Whole Blood 43 38 - 122 ug/L 05/06/2024 6:41 AM EDT [facility] Comment: This test was developed and the performance characteristics determined by [facility]. It has not been cleared or approved by the FDA. The laboratory is regulated under CLIA as qualified to perform high-complexity testing. This test is used for patient testing purposes. It should not be regarded as investigational or for research. Test performed at [facility], [address] , [place], [place] ??[address] ? [phone] Emely Ponce MD, PhD - Blindstitch Lapel Padder Blood Venous blood specimen / Unknown Venipuncture / Unknown 05/03/2024 10:43 AM EDT 05/03/2024 10:43 AM EDT us Orestes Yepez MD LAB BLOOD ORDERABLES Final R esult [facility] [address] [place] [address] * Folate (05/03/2024 10:43 AM EDT) Folate 11.5 2.8 - 17.0 ng/ml LAB CHEMISTRY METHOD 05/03/2024 4:08 PM EDT [facility] Blood Venous blood specimen / Unknown Venipuncture / Unknown 05/03/2024 10:43 AM EDT 05/03/2024 10:43 AM EDT us Orestes Yepez MD LAB BLOOD ORDERABLES Final R esult Performing Organization Address [facility]/ZIP Co de Phone Number [facility] [address] [place] [address], [place] [phone] * Ferritin (05/03/2024 10:43 AM EDT) Ferritin 8 8 - 252 ng/mL LAB CHEMISTRY METHOD 05/03/2024 4:08 PM EDT [facility] Blood Venous blood specimen / Unknown Venipuncture / Unknown 05/03/2024 10:43 AM EDT 05/03/2024 10:43 AM EDT Spencer ROY LAB BLOOD ORDERABLES Final Resu lt Performing Organization Address [facility]/ZIP Co de Phone Number [facility] [address] [place] [address], [place] [phone] * Vitamin B12 (05/03/2024 10:43 AM EDT) Pathologist [facility] Vitamin B-12 292 250 - 900 pcg/mL LAB CHEMISTRY METHOD 05/03/2024 4:08 PM EDT [facility] Blood Venous blood specimen / Unknown Venipuncture / Unknown 05/03/2024 10:43 AM EDT 05/03/2024 10:43 AM EDT us Orestes Yepez MD LAB BLOOD ORDERABLES Final R esult Performing Organization Address City/[facility]/ZIP Co de Phone Number [facility] [address] [place] [address], [place] [phone] * (ABNORMAL) Comprehensive metabolic panel (05/03/2024 10:43 AM EDT) Sodium 136 133 - 145 mmol/L LAB CHEMISTRY METHOD 05/03/2024 4:08 PM [facility] Potassium 4.5 3.5 - 5.5 mmol/L LAB CHEMISTRY METHOD 05/03/2024 4:08 PM [facility] Comment:Hemolysis present Chloride 105 96 - 110 mmol/L LAB CHEMISTRY METHOD 05/03/2024 4:08 PM [facility] CO2 26 21 - 32 mmol/L LAB CHEMISTRY METHOD 05/03/2024 4:08 PM [facility] Anion Gap 5 3 - 11 LAB CHEMISTRY METHOD 05/03/2024 4:08 PM [facility] Glucose 81 70 - 100 mg/dL LAB CHEMISTRY METHOD 05/03/2024 4:08 PM [facility] BUN 16 5 - 25 mg/dL LAB CHEMISTRY METHOD 05/03/2024 4:08 PM [facility] Creatinine 0.68 0.50 - 1.10 mg/dL LAB CHEMISTRY METHOD 05/03/2024 4:08 PM [facility] eGFR 110 >=60 mL/min/1. 73m2 LAB CHEMISTRY METHOD 05/03/2024 4:08 PM [facility] Comment:Calculation based on the??Chronic Kidney Disease Epidemiology Collaboration (CKD-EPI) equation refit??without adjustment for race. BUN/Creatinine Ratio 23.5 LAB CHEMISTRY METHOD 05/03/2024 4:08 PM [facility] Calcium 9.0 8.5 - 10.5 mg/dL LAB CHEMISTRY METHOD 05/03/2024 4:08 PM [facility] AST (SGOT) 33 10 - 42 unit/L LAB CHEMISTRY METHOD 05/03/2024 4:08 PM [facility] ALT (SGPT) 34 10 - 60 unit/L LAB CHEMISTRY METHOD 05/03/2024 4:08 PM EDT [facility] Alkaline Phosphatase 146(H) 42 - 121 unit/L LAB CHEMISTRY METHOD 05/03/2024 4:08 PM EDT [facility] Total Protein 7.0 6.0 - 8.0 g/dL LAB CHEMISTRY METHOD 05/03/2024 4:08 PM EDT [facility] Albumin 3.5 3.2 - 5.0 g/dL LAB CHEMISTRY METHOD 05/03/2024 4:08 PM EDT [facility] Total Bilirubin 0.5 0.0 - 1.4 mg/dL LAB CHEMISTRY METHOD 05/03/2024 4:08 PM EDT [facility] Blood Venous blood specimen / Unknown Venipuncture / Unknown 05/03/2024 10:43 AM EDT 05/03/2024 10:43 AM EDT Spencer ROY LAB BLOOD ORDERABLES Final Resu lt [facility] [address] [place] [address], [place] [phone] * POC glucose manually resulted (04/14/2024 10:57 AM EST) Glucose POC 79 mg/dL Comment:Non fasting Blood Capillary blood specimen / Unknown 04/14/2024 10:57 AM EST us Daniela ROY POINT OF CARE TEST ENTER/ED IT ORDERABLES Final Result * Lipid panel with reflex to direct LDL (03/17/2024 2:44 PM EST) Cholesterol 156 0 - 200 mg/dL LAB CHEMISTRY METHOD 03/17/2024 5:05 PM EST [facility] Triglycerides 49 0 - 150 mg/dL LAB CHEMISTRY METHOD 03/17/2024 5:05 PM EST [facility] HDL 83 >=40 mg/dL LAB CHEMISTRY METHOD 03/17/2024 5:05 PM [facility] LDL Calculated 63 0 - 100 mg/dL LAB CHEMISTRY METHOD 03/17/2024 5:05 PM [facility] VLDL Cholesterol Rommel 9.8 mg/dL LAB CHEMISTRY METHOD 03/17/2024 5:05 PM [facility] Non HDL Chol. (LDL+VLDL) 73 <145 mg/dL LAB CHEMISTRY METHOD 03/17/2024 5:05 PM [facility] Chol/HDL Ratio 1.9 0.0 - 4.4 LAB CHEMISTRY METHOD 03/17/2024 5:05 PM [facility] Blood Venous blood specimen / Unknown Venipuncture / Unknown 03/17/2024 2:44 PM EST 03/17/2024 2:44 PM EST Daniela ROY LAB BLOOD ORDERABLES Final Result [facility] [address] [place] [address], [place] [phone] * Microalbumin creatinine urine ratio (03/17/2024 2:44 PM EST) Creatinine, Urine 184.0 mg/dL LAB CHEMISTRY METHOD 03/17/2024 5:46 PM [facility] Microalb, Ur 10.0 0.0 - 29.0 mg/L LAB CHEMISTRY METHOD 03/17/2024 5:46 PM [facility] Microalb/Creat Ratio 5 <30 mg/g creat LAB CHEMISTRY METHOD 03/17/2024 5:46 PM [facility] Urine Urine specimen from urethra / Unknown Non-blood Collection / Unknown 03/17/2024 2:44 PM EST 03/17/2024 2:44 PM EST Daniela ROY LAB URINE ORDERABLES Final Result Performing Organization Address City/[facility]/ZIP Co de Phone Number [facility] [address] [place] [address], [place] [phone] * Hemoglobin A1c (03/17/2024 2:44 PM EST) Hemoglobin A1C 5.9 <6.5 % LAB CHEMISTRY METHOD 03/17/2024 7:31 PM EST [facility] Mean Bld Glu Estim. 123 mg/dL LAB CHEMISTRY METHOD 03/17/2024 7:31 PM EST [facility] Blood Venous blood specimen / Unknown Venipuncture / Unknown 03/17/2024 2:44 PM EST 03/17/2024 2:44 PM EST us Daniela ROY LAB BLOOD ORDERABLES Final Result Performing Organization Address City/[facility]/ZIP Co de Phone Number [facility] [address] [place] [address], [place] [phone] from Last 3 Months or Most Recently Relevant to Health Maintenance Insurance [facility] [employer]IC[employer] Member Subscriber Plan / Payer (Ef fective 2019-Present) Name:Lo Olson Relation to Subscriber:Self Name:Lo Olson Payer ID:[id number] Group ID:[id number] Type:Not on file Address: [address] [facility] [place] [id number] Care Teams Coat Feller Relationship Specialty Start Date End Date Jed Alonso MD [address] [address] PCP - General Internal Medicine 01/01/18
[2024-06-30 12:47] LABS: Anion Gap 10 (12-20); Blood Urea Nitrogen 16 mg/dL (9-16); C Reactive Protein < 0.04 mg/dL (< or = 0.50); Carbon Dioxide 29 mmol/L (22-29); Chloride 106 mmol/L (96-108); Estimated Glomerular Filt Rate > 60; Glucose Random 83 mg/dL (60-115); Potassium 4.5 mmol/L (3.3-5.1); Sodium 140 mmol/L (135-145)
[2024-06-30 12:51] LABS: Erythrocyte Sedimentation Rate 25 MM/HR (0-20)
[2024-07-01 05:58] LABS: Lyme Abs Screen <0.90 index
[2024-07-04 13:13] LABS: Anti Nuclear Antibody Screen NEGATIVE (NEGATIVE)
== END 2024-06-30 11:34 | disposition home or self-care (01) ==
LOC: HO.LAB 11:33
PROVIDERS: PCP Internal Medicine; Visit Provider Registered Nurse
DX: G43.909 Migraine, unspecified, not intractable, without status migrainosus (principal)
CPT/HCPCS: 36415; 80048; 84443; 85025; 85652; 86038; 86140; 86617; 86618

== ENCOUNTER 2024-08-25 10:34 | Outpatient (AMB) | payer OTHER, SELFPAY ==
--- NOTE | 2024-08-25 10:57 | A.OFFVIS_ITS ---
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 She was having 2 bad migraines/week with photophobia, sonophobia, and nausea. She also gets some blurred vision, dizziness, and occasional left sided facial numbness with migraines. Rizatriptan as needed helped. She had milder headache 2-3x/week. Sleep was okay with zolpidem. She was having some allergy symptoms, taking loratadine. Verapamil 40mg twice a day helped a little, but still had few bad headaches with photophobia, sonophobia, blurred vision, and some dizziness. Needs to lay down in dark, quiet room. Rizatriptan helped. Occasional numbness to left side of face for about 5 minutes. Fioricet as needed helped, but medication was not covered by insurance. Previously, was having nasal congestion and dryness, along with facial pressure over sinuses. Loratadine works better than cetirizine. Short-term memory not so good and forgetful at times. She has had migraine headaches for many years, about 2 migraines/month with nausea, vomiting, reduced vision, and sometimes left-sided numbness on the scalp and face. Excedrin no longer works. Family history of migraine in her sister. No triggers identified. CAT scan at [facility] normal. Had intestinal surgery for hernia and peptic ulcer. Has trouble initiating and maintaining sleep. [facility] Medical History (Updated 08/25/24 @ 11:07 by Caryn Adhikari CNP) Asthma Hypertension Major depression Tension headache Sinusitis chronic, ethmoidal Memory loss Cerebral microvascular disease Migraine Diabetes mellitus Surgical History (Updated 08/25/24 @ 10:14 by Cher Skelton MA) H/O right knee surgery History of intestinal surgery Social History (Updated 08/25/24 @ 10:14 by Cher Skelton MA) Patient Tobacco Use Status: Never used Tobacco Review of Systems Const Denies chills, Denies daytime sleepiness, Denies difficulty sleeping, Denies fatigue, Denies fever(s), Denies frequent falls, Reports headache(s), Denies increased appetite, Denies poor appetite, Denies snoring, Denies weakness, Denies weight gain and Denies weight loss Eyes Denies loss of vision ENT Denies vertigo, Denies dizziness, Reports headache(s), Reports nasal discharge and Denies neck pain Card Denies chest pain at rest, Denies chest pain with activity, Denies syncope, Denies leg edema, Denies palpitations, Denies dyspnea and Denies dyspnea on exertion Resp Denies cough, Denies dyspnea, Denies dyspnea on exertion and Denies snoring GI Denies abdominal pain, Denies constipation, Denies heartburn, Denies diarrhea and Denies nausea Denies urinary frequency, Denies urinary incontinence and Denies urinary urgency Musc Denies abnormal gait, Denies back pain, Denies myalgias, Denies arthralgias, Denies neck pain, Denies numbness, Denies stiffness and Denies tingling Neuro Denies abnormal gait, Denies vertigo, Denies dizziness, Denies syncope, Denies frequent falls, Reports headache(s), Denies lack of coordination, Denies loss of vision, Denies memory loss, Denies numbness, Denies Other visual disturbances, Denies restless legs, Denies seizure-like activity, Denies tingling, Denies paresthesias, Denies tremor(s) and Denies weakness Psych Denies anxiety, Denies depression, Denies memory loss, Denies visual hallucinations and Denies hallucinations Endo Denies fatigue and Denies palpitations Physical Exam Const Other: General Appearance:? normal, in no acute distress. Heart:? S1, S2 normal, no murmurs. Lungs:? clear anteriorly and posteriorly. Musculoskeletal:? normal. Extremities:? no edema. Psych:? alert, oriented, cognitive function intact, cooperative with exam. Neuro Other: Abnormal Neurological Findings:?none.? Mental Status: alert and oriented X 3. Normal attention, orientation, memory, and affect. Cranial Nerves: Pupils are equal, round, and reactive to light. External ocular muscles are intact. Visual kyle are full, no ptosis. Face is symmetrical, no facial weakness or droop. Facial sensations are normal. Tongue protrudes in midline. Palate elevates symmetrically. Shoulder shrugging is normal Motor Examination: Normal muscle tone, bulk and strength. No atrophy or fasciculations. No drift of the extended upper extremities. DTR 2+. Plantars are flexor. Straight Leg Raisin degrees. Sensory Exam: Normal light touch, temperature, pinprick, vibration, and joint-position sensations. Rhomberg sign is absent. Coordination: No ataxia. No titubation. Nidvae-so-ultd, nzey-pyby-tpif test, and rapid alternating movements were normal. Gait Exam: Within normal limits. Cerebellar Signs: Yotvra-ll-opwo and vtjq-nl-gftw is normal. No dysdiadochokinesia. Extrapyramidal System: No tremor, rigidity with normal facial expressions. No bradykinesia. No bradyphrenia. Normal arm swing and posture. No propulsion or retropulsion. Speech: Normal. No dysphasia or dysarthria. Results Reviewed Results Reviewed: [address] [address] [address] Scan Report Signed Patient: Lo Olson MR#: [id number] : 1980 Acct:[id number] Age/Sex: 43 / F ADM Date: 06/17/24 Loc: HO.CT Attending Dr: Caryn Adhikari CNP Ordering Physician: Caryn Adhikari CNP Date of Service: 06/17/24 Procedure(s): CT head/brain wo IV con Accession Number(s): [id number] cc: Katie Morales MD; Caryn Adhikari CNP~ Report Number: [id number]: Total DLP = 704.00 mGy-cm EXAMINATION: CT HEAD WITHOUT CONTRAST CLINICAL INFORMATION: Migraine COMPARISON: CT brain 512 TECHNIQUE: Contiguous axial imaging was performed from the skull base to vertex without intravenous administration of contrast. This CT examination was performed using dose optimization techniques as appropriate, variously including the following: *Automated exposure control *Adjustment of mA and/or kV according to patient size (this includes techniques or standardized protocols for targeted exams where dose is matched to indication/reason for exam; i.e. extremities or head) *Use of iterative reconstruction technique DLP: 704 FINDINGS: There is no acute intra-axial, extra-axial bleed, masses or midline shift. There is no acute infarction in evolution. There is no edema the murray to white matter differentiation is maintained normal. The lateral ventricles are symmetrical in size and configuration without enlargement. Bone windows reveal no calvarial abnormality. There is no scalp soft tissue abnormality. Bilateral paranasal sinuses and mastoid air cells are well-aerated. There is no scalp soft tissue abnormality. CT/CT head/brain wo IV con IMPRESSION: No acute intracranial process seen. Laboratory Tests 06/30/24 11:52 WBC 4.6 L RBC 3.37 L Hgb 10.2 L Hct 32.3 L MCV 95.8 MCH 30.3 MCHC 31.6 RDW 13.4 Plt Count 238 MPV 9.3 L ESR 25 H Sodium 140 Potassium 4.5 Chloride 106 Carbon Dioxide 29 Anion Gap 10 L BUN 16 Creatinine 0.66 Random Glucose 83 Calcium 9.0 C-Reactive Protein < 0.04 TSH 0.90 KATIE Screen NEGATIVE Lyme Screen IgG & IgM <0.90 Lyme Progressive Test TNP 12/12/20 MRI Brain: mucoperiosteal thickening in the sphenoid and left greater than right ethmoid sinuses. Brain normal. Assessment & Plan Assessment & Plan (1) Migraine: Code(s): G43.909 - Migraine, unspecified, not intractable, without status migrainosus Category: Medical Qualifiers: Intractability: not intractable Migraine type: unspecified Status migrainosus presence: without status migrainosus Qualified Code(s): G43.909 - Migraine, unspecified, not intractable, without status migrainosus Plan: CT scan and lab results reviewed. Start Depakote, use/side effects reviewed. Continue rizatriptan 10mg 1 tablet as needed for migraine. Continue ondansetron 4mg 1 tablet as needed for nausea. (2) Tension headache: Code(s): G44.209 - Tension-type headache, unspecified, not intractable Category: Medical Plan: . (3) Memory loss: Code(s): R41.3 - Other amnesia Category: Medical Plan: . (4) Sinusitis chronic, ethmoidal: Code(s): J32.2 - Chronic ethmoidal sinusitis Category: Medical Plan: Continue loratadine 10mg 1 tablet daily. Plan Meds tried: topiramate, amitriptyline, verapamil, excedrin, sumatriptan, butalbital (worked, but insurance did not cover), beta blockers contraindicated due to asthma Medications: New loratadine 10 mg PO DAILY 30 tabs 5RF 30 days rizatriptan take 1 tab at onset of headache; if no relief may repeat 1 tab after at least 4 hrs; max = 2 tabs/24 hr PO 10 tabs 5RF 30 days divalproex (Depakote) 250 mg PO BEDTIME 30 tabs 1RF 30 days ondansetron 4 mg PO DAILY PRN 10 tabs 5RF nausea and vomiting 30 days Coding Level of Care Code Est Pt Level 4 (45525) Diagnoses Migraine without status migrainosus, not intractable, unspecified migraine type G43.909 Intractability: not intractable Migraine type: unspecified Status migrainosus presence: without status migrainosus Tension headache G44.209 Memory loss R41.3 Sinusitis chronic, ethmoidal J32.2
--- OUTSIDE RECORDS SUMMARY | 2024-08-25 11:17 | XMS_ITS | Encounter Summary ---
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 Name Role Phone Jed Alonso MD Primary Care Provider [phone] Reason for Visit * Reason Onset Date Comments PRIOR AUTH 07/22/2024 Encounter Details Date Type Department Care Team ([facility] st Contact Info) Description 07/22/2024 Telephone Endocrinology - [place] [address] [place] [address] Daniela Torres PA [address] [place] [address] PRIOR AUTH Social History Tobacco Use Types Packs/Day Years [...] PM EDT documented as of this encounter Ordered Prescriptions Prescription Sig Dispense Quantity Refills Last Filled Start Date End Date blood-glucose sensor (Dexcom G7 Sensor) deviceIndications:T ype 2 diabetes mellitus without complication, with long-term current use of insulin ([facility] V24, CMS/HCC V28) Change sensor every 10 days 9 each 3 08/22/2024 documented in this encounter Progress Notes * Marie Duran RN - 07/29/2024 11:24 AM EDT [facility] Thank you * Marie Duran RN - 07/29/2024 11:00 AM EDT Pt was ordered Dexom G7- transmitter not required Called [facility] [employer] spoke with Lili 30 day and 90 day supply ran - covered. Called [facility], they are requiring a PA Will send script to [facility] * Marie Duran RN - 07/25/2024 11:06 AM EDT Called patient, confirmed insurance Message from [facility]: No coverage was found No eligibility was found. Please reconfirm the member's health plan coverage before re-submitting. * Janna Maldonado - 07/22/2024 11:49 AM EDT Prior Authorization for Medication-do not complete and send this encounter unless you have the fax from the pharmacy. Is this a Cover My Meds request: Yes -- [place] Code [id number] Name of Medication Dexcom G6 Transmitter Dose of Medication N/A What is the RX # from the faxed refill? N/A How does patient take this med? N/A What Pharmacy did the fax come from: N/A Pharmacy fax #: N/A documented in this encounter Plan of Treatment Upcoming Encounters Date Type Department Care Team (Late st Contact Info) Description 09/02/2024 9:00 AM EDT Office Visit [facility] Hematology Oncology [address] [place] [phone] Opal Flores MD [address] [place] [phone] 11/03/2024 1:30 PM EDT Office Visit Bariatric Surgery - [place] 175 [facility] [address] [place] [phone] Orestes Yepez MD 175 [facility] [address] [place] [address] 11/25/2024 10:30 AM EDT Office Visit Internal Medicine - [place] 175 [facility] [address] [place] [phone] Jed Alonso MD 175 [facility] [address] [place] [address] documented as of this encounter Visit Diagnoses Diagnosis Type 2 diabetes mellitus without complication, with long-term current use of insulin ([facility] V24, [facility] V28)- Primary Ecchymosis- Primary Other specified circulatory system disorders Easy bruising Other symptoms involving skin and integumentary tissues documented in this encounter Discontinued Medications Medication Sig Discontinue Reason Start Date End Da te blood-glucose sensor (Dexcom G7 Sensor) device Change sensor every 10 days Reorder 03/17/2024 07/29/2024 documented as of this encounter Historical Medications * This list may reflect changes made after this encounter. Dexcom G6 Transmitter device USAR PARA EXAMINAR AZUCAR EN LA LIVAN ALICIA INDICADO, CAMBIAR SENSOR CADA 3 MESES 05/17/2024 5 added in this encounter Care Teams Type Casting Machine Operator Relationship Specialty Start Date End Date Jed Alonso MD 175 [facility] [address] [place] [address] PCP - General Internal Medicine 01/01/18 documented as of this encounter
--- OUTSIDE RECORDS SUMMARY | 2024-08-25 11:17 | XMS_ITS | Clinical Summary ---
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
== END 2024-08-25 11:27 | disposition home or self-care (01) ==
LOC: HO.HSM 10:37
PROVIDERS: PCP Internal Medicine; Referring Provider Internal Medicine; Visit Provider Registered Nurse
DX: G43.909 Migraine, unspecified, not intractable, without status migrainosus (principal); G44.209 Tension-type headache, unspecified, not intractable; R41.3 Other amnesia; J32.2 Chronic ethmoidal sinusitis
CPT/HCPCS: 99214

== ENCOUNTER → 2024-08-25 10:34 | Outpatient (BNVA) | payer OTHER, SELFPAY | PROVIDERS: PCP Internal Medicine; Referring Provider Internal Medicine; Visit Provider Registered Nurse | DX: G44.209 Tension-type headache, unspecified, not intractable (principal); G43.909 Migraine, unspecified, not intractable, without status migrainosus; R41.3 Other amnesia; J32.2 Chronic ethmoidal sinusitis | CPT/HCPCS: 99212 ==

== ENCOUNTER 2024-11-07 10:20 | Outpatient (AMB) | payer OTHER, SELFPAY ==
--- OUTSIDE RECORDS SUMMARY | 2024-11-03 13:30 | XMS_ITS | Encounter Summary ---
Author Organization [facility] Address [address] [place] [address] Care Team Providers Care Scheduling Representative Name Role Phone Jed Alonso MD Primary Care Provider [phone] Reason for Referral * Consultation (Routine) - Authorized Specialty Diagnoses / Procedures Referred By Isatu jacobson Referred To Contact Gastroenterology Diagnoses Blood in stool Orestes Yepez MD [address] [place] [address] Phone: tel: fax: Gastroenterology - [address] [place] [address] Phone: tel: fax: Referral ID Status Reason Start Date Expiration Date Visits Requested Visits Authorized [id number] Authorized Specialty Services Required 11/03/2024 11/03/2025 1 1 Reason for Visit * Reason Comments Follow-up 3 month Encounter Details Date Type Department Care Team (Latest Contact Info) Description 11/03/2024 1:30 PM EDT Office Visit Bariatric Surgery [facility] 175 [facility] [address] [place] [address] Orestes Yepez MD [address] [place] [address] Over weight (Primary Dx); Constipation, unspecified constipation type; Blood in stool; Intestinal malabsorption following gastrectomy Social History Tobacco Use Types Packs/Day Years Used Date Smoking Tobacco: Never Smokeless Tobacco: Never Alcohol Use Standard Drinks/Week Comments No 0 (1 standard drink = 0.6 oz pur e alcohol) Comments No Sex and Gender Information Value Date Recorded Sex Assigned at Female 05/13/2024 1:43 PM EDT Legal Sex Female 12:14 AM EST Gender Identity Female 05/13/2024 1:43 PM EDT Sexual Orientation Straight 05/13/2024 1: 43 PM EDT documented as of this encounter Last Filed Vital Signs Vital Sign Reading Time Taken Comments Blood Pressure 112/74 11/03/2024 1:35 PM EDT Pulse 72 11/03/2024 1:35 PM EDT Temperature 36.6 C (97.8 F) 11/03/2024 1:35 PM EDT Respiratory Rate - - Oxygen Saturation - - Inhaled Oxygen Concentration - - Weight 76.2 kg (168 lb) 11/03/2024 1:35 PM EDT Height 162.6 cm (5' 4 ) 11/03/2024 1:35 PM EDT Body Mass Index 28.84 11/03/2024 1:35 PM EDT documented in this encounter Progress Notes * Orestes Yepez MD - 11/03/2024 1:30 PM EDT Ms. Margarita Borrego is a 44 y.o. year old female who presents for surgical follow up regarding obesity. HPI: Ms. Margarita Borrego has bypass on Feb 2017. Having anemia, requires transfusions. LUQ pain. Constant. Can be 8. Like squeezing inside. Worse over the last 3 months. Had marginal ulcer in the past. Not on PPI. Constipation with pain.. Saw blood in the stools once. Has been on semaglutide for DM. A1C 5.9%. Using 1 mg. Lipid panel normal. .On medication for HTN and HLD. Has lost 9 lbs since Mar. 72 lbs since bypass. Vit A low in April. ROS: GENERAL: No malaise, significant unintentional weight loss, fever, chills or night sweats. HEENT: No changes in hearing or vision, no nose bleeds or other nasal problems. NECK: No lumps, goiter, pain or significant neck swelling RESPIRATORY: No cough, wheezing or shortness of breath CARDIOVASCULAR: No chest pain, leg swelling or palpitations. GI: constipation. : No dysuria, frequency or incontinence. SKIN: No lesions, rash or itching. HEMATOLOGY: No prolonged bleeding, easy bruisability. LYMPHOLOGY No swollen nodes. MUSCULOSKELETAL: No abnormalities. NEURO: No abnormalities. All other systems reviewed which are negative. PAST MEDICAL HISTORY: Patient Active Problem List Diagnosis Date Noted Date Diagnosed Asthma, mild intermittent 08/16/2024 Benign essential HTN 08/16/2024 Diabetes ([facility] V24, [facility] V28) 08/16/2024 Cervical radiculitis 06/30/2024 Abdominal cramping 01/13/2024 Epigastric pain 01/13/2024 Passage of loose stools 01/13/2024 Paresthesias in left hand 07/31/2023 Postoperative hematoma of skin following dermatologic procedure 07/01/2022 Anxiety 05/19/2022 Easy bruising 05/19/2022 Ecchymosis 05/19/2022 Iron deficiency anemia due to sideropenic dysphagia 05/19/2022 Night sweats 05/19/2022 Postoperative hematoma of subcutaneous tissue following non-dermatologic procedure 05/19/2022 Abdominal pannus 01/28/2021 Intertrigo 01/28/2021 Skin laxity 01/28/2021 Pure hypercholesterolemia 10/03/2020 Intestinal malabsorption following gastrectomy 01/27/2019 Depression 09/23/2017 Hypertension 09/23/2017 Complications of bariatric procedures 05/26/2017 Gastrojejunal ulcer without hemorrhage or perforation 05/26/2017 Severe obesity (BMI 35.0-39.9) with comorbidity ([facility] V24, [facility] V28) 05/26/2017 Bipolar 1 disorder ([facility] V24, [facility] V28) 01/15/2017 Nephrolithiasis 01/15/2017 Asthma 07/30/2016 Vitamin D deficiency 11/19/2015 PTSD (post-traumatic stress disorder) 09/01/2014 PAST SURGICAL HISTORY: Past Surgical History: Procedure Laterality Date CARPAL TUNNEL RELEASE PROCEDURE: HISTORICAL CARPAL TUNNEL REL SECTION PROCEDURE: HISTORICAL DELIVERY ESOPHAGOGASTRODUODENOSCOPY 08/14/2021 PROCEDURE: TN ESOPHAGOGASTRODUODENOSCOPY TRANSORAL DIAGNOSTIC; COMMENT: consistent with gastric bypass, no ulcers OTHER SURGICAL HISTORY 02/20/2017 PROCEDURE: TN LAPS GSTR RSTCV PX W/BYP LENNY-EN-Y LIMB <150 CM; COMMENT: Marleni OTHER SURGICAL HISTORY PROCEDURE: HISTORY OTHER; COMMENT: Breast reduction OTHER SURGICAL HISTORY Left PROCEDURE: HISTORY OTHER; COMMENT: Ulnar nerve surgery OTHER SURGICAL HISTORY PROCEDURE: HISTORY OTHER; COMMENT: Hemorrhoids OTHER SURGICAL HISTORY PROCEDURE: HISTORICAL PANNICULECTOMY; COMMENT: Performed in January 2021 with subsequent hematoma requiring 2 units of blood UPPER GASTROINTESTINAL ENDOSCOPY 04/2017 PROCEDURE: TN UPPER GI ENDOSCOPY PERFORMED; COMMENT: Performed by Dr. Pradhan in April 2017 UPPER GASTROINTESTINAL ENDOSCOPY 07/06/2019 PROCEDURE: TN UPPER GI ENDOSCOPY PERFORMED; COMMENT: Normal post gastric bypass appearance, no ulcers. UPPER GASTROINTESTINAL ENDOSCOPY 01/11/2020 PROCEDURE: UPPER GI ENDOSCOPY/EXAM; COMMENT: gastric bypass, random biopsy with mild chronic inflammation, NO H.pylori SOCIAL HISTORY: Social History Tobacco Use Smoking status: Never Smokeless tobacco: Never Substance Use Topics Alcohol use: No FAMILY HISTORY: Family History Problem Relation Name Age of Onset Heart attack Maternal Grandmother Family Status Relation Name Status MGM Mother Alive Father Alive No partnership data on file MEDICATIONS: There are no discontinued medications. ACTIVE MEDICATIONS: No outpatient medications have been marked as taking for the 11/03/24 encounter (Office Visit) with Orestes Yepez MD. ALLERGIES: Allergies Allergen Reactions Oxycodone Hives Hives all over the body Diphenhydramine Penicillins Tuberculin, Purified Protein Derivative PHYSICAL EXAM: Visit Vitals BP 112/74 Pulse 72 Temp 36.6 ??C (97.8 ??F) (Temporal) Ht 1.626 m (64 ) Wt 76.2 kg (168 lb) BMI 28.84 kg/m?? OB Status Having periods Smoking Status Never BSA 1.82 m?? APPEARANCE: Alert and oriented and in no acute distress EYES: Conjunctiva normal and sclera normal and anicteric. NECK: Neck supple with no adenopathy. HEART: No JVD. LUNG: No retractions. LYMPH NODES: No gross cervical or clavicular lymphadenopathy. ABDOMEN: non-distended, EXTREMITIES: Extremities well perfused without clubbing, cyanosis, or edema. SKIN: Skin color and texture normal. No rashes. NEUROLOGIC: Alert and oriented ??3. No motor deficits in the extremities. LABS/IMAGING: ASSESSMENT: 1. Over weight 2. Constipation, unspecified constipation type 3. Blood in stool 4. Intestinal malabsorption following gastrectomy PLAN: 1. Will continue semaglutide. FBS, A!C normal. 2. GI consult for blood in stools and constipation. 3. Will recheck vit A. 4. F/U in 4 months. documented in this encounter Plan of Treatment Upcoming Encounters Date Type Department Care Team (Late st Contact Info) Description 11/25/2024 10:30 AM EDT Office Visit Internal Medicine [facility] [address] [phone] Jed Alonso MD [address] [address] 03/23/2025 9:15 AM EST Office Visit Bariatric Surgery - [address] [phone] Orestes Yepez MD [address] [place] [phone] 04/12/2025 3:00 PM EST Office Visit Gastroenterology [address] [phone] Carmen Watt PA [address] [address] 09/05/2025 10:00 AM EDT Office Visit [facility] Hematology Oncology [address] [place] [phone] Opal Flores MD [address] [place] [phone] Pending Results Name Type Priority Associated Diagnoses Date /Time Vitamin A Lab Routine Intestinal malabsorption following gastrectomy 11/03/2024 2:03 PM EDT Scheduled Orders Name Type Priority Associated Diagnoses Orde r Schedule Vitamin A Lab Routine Intestinal malabsorption following gastrectomy 1 Occurrences starting 11/03/2024 until 11/03/2025 Scheduled Referrals Name Type Priority Associated Diagnoses Order Schedule Ambulatory referral to Gastroenterology Outpatient Referral Routine Blood in stool 1 Occurrences starting 11/03/2024 until 11/03/2025 documented as of this encounter Visit Diagnoses Diagnosis Over weight- Primary Overweight Constipation, unspecified constipation type Blood in stool Intestinal malabsorption following gastrectomy documented in this encounter Care Teams Scheduling Representative Relationship Specialty Start Date End Date Jed Alonso MD [address] [place] [address] PCP - General Internal Medicine 01/01/18 documented as of this encounter
--- NOTE | 2024-11-07 10:23 | MHC.OFFVIS ---
Intake Visit Reasons: 2m COVARRUBIAS Bracelet Form Coverer Required: Yes Bracelet Form Coverer Services: Bracelet Form Coverer Present Bracelet Form Coverer Name: #[id number] Allergies tuberculin, purified protein deriva (TUBERCULIN,PURIF.PROT.DERIV.) Allergy (Unknown, Unverified 11/07/24 10:27) ITCHY RED diphenhydramine (From Benadryl) Allergy (Verified 11/07/24 10:27) Unknown penicillin V Allergy (Verified 11/07/24 10:27) Unknown Medication List - Last Reconciled 11/07/24 by Caryn Adhikari, TADEO albuterol sulfate mg inhalation Q4H PRN ammonium lactate 12% appl topical atorvastatin 20 mg PO BEDTIME blood-glucose transmitter (DevHD G6 Transmitter device) As directed bupropion HCl XL 150 mg PO DAILY buspirone 15 mg PO TID cyclobenzaprine 5 mg PO DAILY PRN dicyclomine 10 mg PO QID divalproex (Depakote) 250 mg PO BEDTIME 30 days escitalopram oxalate 20 mg PO QAM insulin glargine U-300 conc (Toujeo Max U-300 SoloStar) 13 units subcut BEDTIME insulin glargine U-300 conc (Toujeo SoloStar U-300 Insulin) 8 units subcut BEDTIME insulin pump cart,auto,BT,G6/7 (Omnipod 5 G6-G7 Pods (Gen 5) subcutaneous cartridge) As directed lancets (FreeStyle Lancets) As directed lisinopril 30 mg PO DAILY loratadine 10 mg PO DAILY 30 days lorazepam 0.5 mg PO DAILY PRN ondansetron 4 mg PO DAILY PRN 30 days pantoprazole 40 mg PO QAM rizatriptan take 1 tab at onset of headache; if no relief may repeat 1 tab after at least 4 hrs; max = 2 tabs/24 hr PO 30 days semaglutide (Ozempic) mg subcut sennosides (senna) 8.6 mg PO DAILY vitamin A 1 cap PO DAILY zolpidem 10 mg PO BEDTIME HPI Comments Details: She had some trouble getting Depakote initially, but was taking medication. She had headache almost every day. She had bad headache at least 4x/week with photophobia, sonophobia, and dizziness. She occasionally had some left sided facial numbness with migraines. Rizatriptan as needed helped, but she was sometimes running out of medication before refill was due. She was taking Excedrin migraine about once a day for the past month. sleep was okay with zolpidem. Forgetfulness continues. She was asking for updated letter to have NARROW GAUGE OPERATOR assist and accompany her, including to medical appointments. She was not able to start increased dose of verapamil due to insurance issue. She was having 2 bad migraines/week with photophobia, sonophobia, and nausea. She also gets some blurred vision, dizziness, and occasional left sided facial numbness with migraines. Rizatriptan as needed helped. She had milder headache 2-3x/week. Sleep was okay with zolpidem. She was having some allergy symptoms, taking loratadine. Verapamil 40mg twice a day helped a little, but still had few bad headaches with photophobia, sonophobia, blurred vision, and some dizziness. Needs to lay down in dark, quiet room. Rizatriptan helped. Occasional numbness to left side of face for about 5 minutes. Fioricet as needed helped, but medication was not covered by insurance. Previously, was having nasal congestion and dryness, along with facial pressure over sinuses. Loratadine works better than cetirizine. Short-term memory not so good and forgetful at times. She has had migraine headaches for many years, about 2 migraines/month with nausea, vomiting, reduced vision, and sometimes left-sided numbness on the scalp and face. Excedrin no longer works. Family history of migraine in her sister. No triggers identified. CAT scan at [facility] normal. Had intestinal surgery for hernia and peptic ulcer. Has trouble initiating and maintaining sleep. [facility] Medical History (Updated 08/25/24 @ 11:07 by Caryn Adhikari CNP) Asthma Hypertension Major depression Tension headache Sinusitis chronic, ethmoidal Memory loss Cerebral microvascular disease Migraine Diabetes mellitus Surgical History (Updated 08/25/24 @ 10:14 by Cher Skelton MA) H/O right knee surgery History of intestinal surgery Social History (Updated 08/25/24 @ 10:14 by Cher Skelton MA) Patient Tobacco Use Status: Never used Tobacco Review of Systems Const Denies chills, Denies daytime sleepiness, Denies difficulty sleeping, Denies fatigue, Denies fever(s), Denies frequent falls, Reports headache(s), Denies increased appetite, Denies poor appetite, Denies snoring, Denies weakness, Denies weight gain and Denies weight loss Eyes Denies loss of vision ENT Denies vertigo, Denies dizziness, Reports headache(s), Reports nasal discharge and Denies neck pain Card Denies chest pain at rest, Denies chest pain with activity, Denies syncope, Denies leg edema, Denies palpitations, Denies dyspnea and Denies dyspnea on exertion Resp Denies cough, Denies dyspnea, Denies dyspnea on exertion and Denies snoring GI Denies abdominal pain, Denies constipation, Denies heartburn, Denies diarrhea and Denies nausea Denies urinary frequency, Denies urinary incontinence and Denies urinary urgency Musc Denies abnormal gait, Denies back pain, Denies myalgias, Denies arthralgias, Denies neck pain, Denies numbness, Denies stiffness and Denies tingling Neuro Denies abnormal gait, Denies vertigo, Denies dizziness, Denies syncope, Denies frequent falls, Reports headache(s), Denies lack of coordination, Denies loss of vision, Denies memory loss, Denies numbness, Denies Other visual disturbances, Denies restless legs, Denies seizure-like activity, Denies tingling, Denies paresthesias, Denies tremor(s) and Denies weakness Psych Denies anxiety, Denies depression, Denies memory loss, Denies visual hallucinations and Denies hallucinations Endo Denies fatigue and Denies palpitations Physical Exam Const Other: General Appearance:? normal, in no acute distress. Heart:? S1, S2 normal, no murmurs. Lungs:? clear anteriorly and posteriorly. Musculoskeletal:? normal. Extremities:? no edema. Psych:? alert, oriented, cognitive function intact, cooperative with exam. Neuro Other: Abnormal Neurological Findings:?none.? Mental Status: alert and oriented X 3. Normal attention, orientation, memory, and affect. Cranial Nerves: Pupils are equal, round, and reactive to light. External ocular muscles are intact. Visual kyle are full, no ptosis. Face is symmetrical, no facial weakness or droop. Facial sensations are normal. Tongue protrudes in midline. Palate elevates symmetrically. Shoulder shrugging is normal Motor Examination: Normal muscle tone, bulk and strength. No atrophy or fasciculations. No drift of the extended upper extremities. DTR 2+. Plantars are flexor. Sensory Exam: Normal light touch, temperature, pinprick, vibration, and joint-position sensations. Rhomberg sign is absent. Coordination: No ataxia. No titubation. Iqnuzz-dx-rcjm, palu-bnke-rdjw test, and rapid alternating movements were normal. Gait Exam: Within normal limits. Cerebellar Signs: Pmocap-en-fqxg is okay. Extrapyramidal System: No tremor, rigidity with normal facial expressions. No bradykinesia. No bradyphrenia. Normal arm swing and posture. No propulsion or retropulsion. Speech: Normal. Results Reviewed Results Reviewed: CT Brain 06/17/24 at [facility]: No acute intracranial process seen. Laboratory Tests 06/30/24 11:52 WBC 4.6 L RBC 3.37 L Hgb 10.2 L Hct 32.3 L MCV 95.8 MCH 30.3 MCHC 31.6 RDW 13.4 Plt Count 238 MPV 9.3 L ESR 25 H Sodium 140 Potassium 4.5 Chloride 106 Carbon Dioxide 29 Anion Gap 10 L BUN 16 Creatinine 0.66 Random Glucose 83 Calcium 9.0 C-Reactive Protein < 0.04 TSH 0.90 RODERICK Screen NEGATIVE Lyme Screen IgG & IgM <0.90 Lyme Progressive Test TNP 12/12/20 MRI Brain: mucoperiosteal thickening in the sphenoid and left greater than right ethmoid sinuses. Brain normal. Assessment & Plan Assessment & Plan (1) Migraine: Code(s): G43.909 - Migraine, unspecified, not intractable, without status migrainosus Category: Medical Qualifiers: Intractability: not intractable Migraine type: unspecified Status migrainosus presence: without status migrainosus Qualified Code(s): G43.909 - Migraine, unspecified, not intractable, without status migrainosus Plan: Stop Depakote. Start Emgality 120mg/mL subcutaneous monthly, use/side effects reviewed. She has tried and failed multiple medications including topiramate, amitriptyline, verapamil, and Depakote. Beta blockers were contraindicated due to asthma. Continue rizatriptan 10mg 1 tablet as needed for migraine. Continue ondansetron 4mg 1 tablet as needed for nausea. (2) Tension headache: Code(s): G44.209 - Tension-type headache, unspecified, not intractable Category: Medical Plan: Start nortriptyline 25mg 1 tablet at bedtime, use/side effects. (3) Memory loss: Code(s): R41.3 - Other amnesia Category: Medical Plan: Updated letter given. (4) Sinusitis chronic, ethmoidal: Code(s): J32.2 - Chronic ethmoidal sinusitis Category: Medical Plan: Continue loratadine 10mg 1 tablet daily. Plan Meds tried: topiramate, amitriptyline, verapamil, excedrin, sumatriptan, butalbital (worked, but insurance did not cover), beta blockers contraindicated due to asthma Medications: New galcanezumab-gnlm (Emgality Pen) Loading dose 120 mg subcut QMONTH 2 ea 0RF 30 days galcanezumab-gnlm (Emgality Pen) 120 mg subcut QMONTH 1 mL 5RF 30 days nortriptyline 25 mg PO BEDTIME 90 caps 1RF 90 days Discontinued divalproex (Depakote) Discontinued Reason: Doctor's Order 250 mg PO BEDTIME 30 days 30 tabs 1RF Coding Level of Care Code Est Pt Level 4 (55549) Diagnoses Migraine without status migrainosus, not intractable, unspecified migraine type G43.909 Intractability: not intractable Migraine type: unspecified Status migrainosus presence: without status migrainosus Tension headache G44.209 Memory loss R41.3 Sinusitis chronic, ethmoidal J32.2
--- OUTSIDE RECORDS SUMMARY | 2024-11-07 12:40 | XMS_ITS | Clinical Summary ---
Author Organization [address] [place] [address] [place] [phone] Phone Care Team Providers Care Uniform Attendant Name Role Phone Jed Alonso MD Primary Care Provider [phone] Allergies Active Allergy Reactions Criticality Noted Date [...] NOCHE 120 capsule 03/17/19 25 Active lisinopriL (PRINIVIL,ZESTRI L) 20 mg tablet LAURA 1 Y 1/2 TABLETAS POR VIA ORAL DIARIAMENTE 45 tablet 03/17/19 25 Active atorvastatin (LIPITOR) 20 mg tablet LAURA 1 TABLETA POR VIA ORAL DELMIS VEZ AL STANLEY A LA HORA DE ACOSTARSE 30 tablet 03/17/19 25 Active senna 8.6 mg tabletIndication s:Inflammatory bowel diseases (IBD) LAURA 1 TABLETA POR VIA ORAL DELMIS VEZ AL STANLEY 30 tablet 03/29/19 25 Active blood sugar diagnostic (FreeStyle Lite [...] not crush, chew, or split. 30 each 05/03/19 25 026 Active ammonium lactate (AMLACTIN) 12 % cream Apply topically if needed for dry skin. 770 g 05/20/19 25 026 Active vitamin A 3,000 mcg (10,000 unit) capsule LAURA 1 CAPSULA POR VIA ORAL DELMIS VEZ AL STANLEY 30 capsule 06/10/19 25 Active psyllium (Metamucil, with sugar,) 3.4 gram packetIndication s:Constipation, unspecified constipation type Take 1 packet by mouth 2 (two) times a day. Mix and drink with at least 8 ounces of water or juice. 60 packet 07/19/19 25 026 Active buPROPion XL (WELLBUTRIN XL) 150 mg 24 hr tabletIndication s:Over weight LAURA 1 TABLETA VIA ORAL CADA STANLEY . NO QUIEBRE, PARTA O CHUPE 30 tablet 11 07/23/19 25 Active blood-glucose sensor (Dexcom G7 Sensor) deviceIndication s:Type 2 diabetes mellitus without complication, with long-term current use of insulin ([facility] V24, [facility] V28) Change sensor every 10 days 9 each 08/23/19 25 Active levalbuterol (XOPENEX HFA) 45 mcg/actuation inhaler INHALE 2 BOCANADAS POR VIA ORAL CADA 4 HORAS KARLOS SEA NECESARIO PARA SILBIDOS 15 g 11 08/13/19 25 Active freestyle (FreeStyle Lancets) 28 gauge lancets Use to check bs 3 times day 300 each 08/17/19 25 Active pen needle, diabetic (BD Ultra-Fine Short Pen Needle) 31 gauge x 5/16 needle Use to inject 1-4 times daily as directed 100 each 08/17/19 25 Active Ozempic 1 mg/dose (4 mg/3 mL) injection penIndications:T ype 2 diabetes mellitus without complication, with long-term current use of insulin ([facility] V24, [facility] V28) INYECTAR 1MG SUBCUTANEAMENTA CADA 7 FAGAN 3 mL 09/14/19 25 Active Active Problems Problem Noted Date Diagnosed Date Asthma, mild intermittent 08/16/2024 Benign essential HTN 08/16/2024 Diabetes ([facility] V24, [facility] V28) 08/16/2024 Cervical radiculitis 06/30/2024 Abdominal cramping [...] Severe obesity (BMI 35.0-39. 9) with comorbidity ([facility] V24, [facility] V28) 05/26/2017 Bipolar 1 disorder ([facility] V24, [facility] V28) Nephrolithiasis 01/15/2017 Asthma 07/30/2016 Vitamin D deficiency 11/19/2015 PTSD (post-traumatic stress disorder) 09/01/2014 Encounters Date Type Department Care Team Description 11/03/2024 1:30 PM EDT Office Visit Bariatric Surgery [facility] [address] [place] [phone] Orestes Yepez MD Over weight (Primary Dx); Constipation, unspecified constipation type; Blood in stool; Intestinal malabsorption following gastrectomy 09/05/2024 3:30 PM EDT Office Visit [facility] Hematology Oncology [address] [place] [phone] Opal Flores MD Easy bruising (Primary Dx); Iron deficiency anemia due to sideropenic dysphagia 08/16/2024 1:30 PM EDT Office Visit Endocrinology [address] [phone] Daniela Torres PA Type 2 diabetes mellitus with other specified complication, with long-term current use of insulin ([facility] V24, [facility] V28) (Primary Dx); Hypoglycemia from Last 3 Months Surgical History Surgery Date Site/Laterality Comments OTHER SURGICAL HISTORY 02/20/19 PROCEDURE: DC LAPS GSTR RSTCV PX W/BYP LENNY-EN-Y LIMB <150 CM; COMMENT: Marleni CARPAL TUNNEL RELEASE PROCEDURE: HISTORICAL CARPAL TUNNEL REL SECTION PROCEDURE: HISTORICAL DELIVERY OTHER SURGICAL HISTORY PROCEDURE: HISTORY OTHER; COMMENT: Breast reduction OTHER SURGICAL HISTORY Left PROCEDURE: HISTORY OTHER; COMMENT: Ulnar nerve surgery OTHER SURGICAL HISTORY PROCEDURE: HISTORY OTHER; COMMENT: Hemorrhoids UPPER GASTROINTESTINAL ENDOSCOPY 04/2017 PROCEDURE: DC UPPER GI ENDOSCOPY PERFORMED; COMMENT: Performed by Dr. Pradhan in April 2017 UPPER GASTROINTESTINAL ENDOSCOPY 07/06/19 PROCEDURE: DC UPPER GI ENDOSCOPY PERFORMED; COMMENT: Normal post gastric bypass appearance, no ulcers. 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 9) with comorbidity ([facility] V24, [facility] V28) 05/26/2017 DX:Severe obesity (BMI 35.0- 39.9) with comorbidity ([facility]) Anxiety 09/23/2017 DX:Anxiety Depression 09/23/2017 DX:Depression Diabetes mellitus, type 2 ([facility] V24, [facility] V28) 09/23/2017 DX:Diabetes mellitus, type 2 ([facility]); COMMENT: Resolved after Bariatric surgery, weight loss History of bariatric surgery 09/23/2017 DX: History of bariatric surgery; COMMENT: 02/20/17 Hypertension 09/23/2017 DX:Hypertension Asthma 07/30/2016 DX:Asthma Bipolar 1 disorder ([facility] V24, [facility] V28) 01/15/2017 DX:Bipolar 1 disorder ([facility]) Nephrolithiasis 01/15/2017 DX:Nephrolithias is PTSD (post-traumatic stress [...] F) 11/03/2024 1:35 PM EDT Respiratory Rate 16 05/20/2024 9:43 AM EDT Oxygen Saturation 100% 09/05/2024 3:30 PM EDT Inhaled Oxygen Concentration - - Weight 76.2 kg (168 lb) 11/03/2024 1:35 PM EDT Height 162.6 cm (5' 4 ) 11/03/2024 1:35 PM EDT Body Mass Index 28.84 11/03/2024 1:35 PM EDT Plan of Treatment Upcoming Encounters Date Type Department Care Team (Late st Contact Info) Description 11/25/2024 10:30 AM EDT Office Visit Internal Medicine - [place] [address] [facility] [address] [place] [phone] Jed Alonso MD [address] [facility] [address] [place] [address] 03/23/2025 9:15 AM EST Office Visit Bariatric Surgery - [place] [address] [facility] [address] [place] [phone] Orestes Yepez MD [address] [place] [phone] 04/12/2025 3:00 PM EST Office Visit Gastroenterology - [place] 175 [facility] [address] [facility] [address] [place] [phone] Carmen Watt PA [address] [facility] [address] [place] [address] 09/05/2025 10:00 AM EDT Office Visit [facility] Hematology Oncology [address] [place] [phone] Opal Flores MD [address] [place] [phone] Health Maintenance Due Date Last Done Comments Breast Cancer Screening 1978 Diabetes: Annual Foot Exam 1988 Diabetes: Annual Retina Eye Exam 1988 DTaP,Tdap,and Td Vaccines (1 - Tdap) 1997 Hepatitis B Vaccines (1 of 3 - 19+ 3-dose series) 1997 Cervical Cancer Screening: P ap Smear 07/22/1999 Pneumococcal Vaccine: Pediatrics (0 to 5 Years) and At-Risk Patients (6 to 49 Years) (2 of 2 - PCV) 11/18/2016 11/19/2015 Colorectal Cancer Screening: Colonoscopy 01/25/2022 HIV Screening 01/25/2022 Hepatitis C Screening 01/25/2022 Medicare Annual Wellness Visit 01/25/2022 Social Influencers of Health Screening 01/25/2022 Depression Screening 02/17/2024 COVID-19 Vaccine (3 - 2024-2 6 season) 2024 06/20/2020, 05/23/2020 Influenza Vaccine (#1) 2024 Diabetes: Annual Urine Albumin-Creatinine Ratio (uACR) 03/17/2025 03/17/2024 Diabetes: Annual GFR (Glomerular Filtration Rate) 05/03/2025 05/03/2024, 03/17/2024 Diabetes: Blood Sugar Contro l Test (HGBA1C) 05/03/2025 11/03/2024, 03/17/2024 Hypertension/CHF/CAD Annual BMP Blood Test 05/03/2025 05/03/2024, 03/17/2024 Cholesterol Screening (Lipid Panel) 03/17/2029 03/17/2024 RSV Immunization Adult Patients (1 - 1-dose 75+ series) 2053 MMR Vaccines Aged Out 12/16/2017 No longer [...] Procedure Name Priority Date/Time Associated Diagnosis Comments HEMOGLOBIN A1C Routine 11/03/2024 2:03 PM EDT Type 2 diabetes mellitus with other specified complication, with long-term current use of insulin ([facility] V24, [facility] V28) POC GLUCOSE Routine 08/16/2024 2:55 PM EDT Type 2 diabetes mellitus with other specified complication, with long-term current use of insulin ([facility] V24, [facility] V28) COMPREHENSIVE METABOLIC PANEL Routine 05/03/2024 10:43 AM EDT LUQ pain Rectal bleeding History of gastric restrictive surgery Hemorrhoids, unspecified hemorrhoid type MICROALBUMIN CREATININE URINE RATIO Routine 03/17/2024 2:44 PM EST Type 2 diabetes mellitus with other specified complication, with long-term current use of insulin ([facility] V24, [facility] V28) LIPID PANEL WITH REFLEX TO DIRECT LDL Routine 03/17/2024 2:44 PM EST Type 2 diabetes mellitus with other specified complication, with long-term current use of insulin ([facility] V24, [facility] V28) from Last 3 Months or Most Recently Relevant to Health Maintenance Results * Hemoglobin A1c (11/03/2024 2:03 PM EDT) Hemoglobin A1C 5.6 <6.5 % LAB CHEMISTRY METHOD 11/03/2024 10:03 PM EDT [facility] Mean Bld Glu Estim. 114 mg/dL LAB CHEMISTRY METHOD 11/03/2024 10:03 PM EDT [facility] Blood Venous blood specimen / Unknown Venipuncture / Unknown 11/03/2024 2:03 PM EDT 11/03/2024 2:03 PM EDT Daniela ROY LAB BLOOD ORDERABLES Final Result [facility] [address] [place] [address], [place] [phone] * POC glucose manually resulted (08/16/2024 2:55 PM EDT) Blood Capillary blood specimen / Unknown 08/16/2024 2:55 PM EDT Daniela ROY POINT OF CARE TEST ENTER/ED IT ORDERABLES Final Result * (ABNORMAL) Comprehensive metabolic panel (05/03/2024 10:43 AM EDT) Pathologist [facility] Sodium 136 133 - 145 mmol/L LAB CHEMISTRY METHOD 05/03/2024 4:08 PM EDT [facility] Potassium 4.5 3.5 - 5.5 mmol/L LAB CHEMISTRY METHOD 05/03/2024 4:08 PM EDT [facility] Comment:Hemolysis present Chloride 105 96 - 110 mmol/L LAB CHEMISTRY METHOD [facility] CO2 26 21 - 32 mmol/L LAB CHEMISTRY METHOD 05/03/2024 4:08 PM [facility] Anion Gap 5 3 - 11 LAB CHEMISTRY METHOD 05/03/2024 4:08 PM [facility] Glucose 81 70 - 100 mg/dL LAB CHEMISTRY METHOD 05/03/2024 4:08 PM [facility] BUN 16 5 - 25 mg/dL LAB CHEMISTRY METHOD 05/03/2024 4:08 PM [facility] Creatinine 0.68 0.50 - 1.10 mg/dL LAB CHEMISTRY METHOD 05/03/2024 4:08 PM [facility] eGFR 110 >=60 mL/min/1. 73m2 LAB CHEMISTRY METHOD 05/03/2024 4:08 PM [facility] Comment:Calculation based on the Chronic Kidney Disease Epidemiology Collaboration (CKD-EPI) equation refit without adjustment for race. BUN/Creatinine Ratio 23.5 LAB CHEMISTRY METHOD 05/03/2024 4:08 PM [facility] Calcium 9.0 8.5 - 10.5 mg/dL LAB CHEMISTRY METHOD 05/03/2024 4:08 PM [facility] AST (SGOT) 33 10 - 42 unit/L LAB CHEMISTRY METHOD 05/03/2024 4:08 PM [facility] ALT (SGPT) 34 10 - 60 unit/L LAB CHEMISTRY METHOD 05/03/2024 4:08 PM [facility] Alkaline Phosphatase 146(H) 42 - 121 unit/L LAB CHEMISTRY METHOD 05/03/2024 4:08 PM [facility] Total Protein 7.0 6.0 - 8.0 g/dL LAB CHEMISTRY METHOD 05/03/2024 4:08 PM [facility] Albumin 3.5 3.2 - 5.0 g/dL LAB CHEMISTRY METHOD 05/03/2024 4:08 PM EDT [facility] Total Bilirubin 0.5 0.0 - 1.4 mg/dL LAB CHEMISTRY METHOD 05/03/2024 4:08 PM EDT [facility] Blood Venous blood specimen / Unknown Venipuncture / Unknown 05/03/2024 10:43 AM EDT 05/03/2024 10:43 AM EDT us Spencer ROY LAB BLOOD ORDERABLES Final Resu lt [facility] [address] [place] [address], [place] [phone] * Lipid panel with reflex to direct LDL (03/17/2024 2:44 PM EST) Cholesterol 156 0 - 200 mg/dL LAB CHEMISTRY METHOD 03/17/2024 5:05 PM [facility] Triglycerides 49 0 - 150 mg/dL LAB CHEMISTRY METHOD 03/17/2024 5:05 PM EST [facility] HDL 83 >=40 mg/dL LAB CHEMISTRY METHOD 03/17/2024 5:05 PM EST [facility] LDL Calculated 63 0 - 100 mg/dL LAB CHEMISTRY METHOD 03/17/2024 5:05 PM [facility] VLDL Cholesterol Rommel 9.8 mg/dL LAB CHEMISTRY METHOD 03/17/2024 5:05 PM [facility] Non HDL Chol. (LDL+VLDL) 73 <145 mg/dL LAB CHEMISTRY METHOD 03/17/2024 5:05 PM [facility] Chol/HDL Ratio 1.9 0.0 - 4.4 LAB CHEMISTRY METHOD 03/17/2024 5:05 PM [facility] Blood Venous blood specimen / Unknown Venipuncture / Unknown 03/17/2024 2:44 PM EST 03/17/2024 2:44 PM EST us Daniela ROY LAB BLOOD ORDERABLES Final Result [facility] [address] [place] [address], [place] [phone] * Microalbumin creatinine urine ratio (03/17/2024 2:44 PM EST) Creatinine, Urine 184.0 mg/dL LAB CHEMISTRY METHOD 03/17/2024 5:46 PM EST [facility] Microalb, Ur 10.0 0.0 - 29.0 mg/L LAB CHEMISTRY METHOD 03/17/2024 5:46 PM EST [facility] Microalb/Creat Ratio 5 <30 mg/g creat LAB CHEMISTRY METHOD 03/17/2024 5:46 PM EST [facility] Urine Urine specimen from urethra / Unknown Non-blood Collection / Unknown 03/17/2024 2:44 PM EST 03/17/2024 2:44 PM EST Daniela ROY LAB URINE ORDERABLES Final Result Performing Organization Address City/[facility]/ZIP Co de Phone Number [facility] [address] [place] [address], [place] [phone] from Last 3 Months or Most Recently Relevant to Health Maintenance Insurance [facility] MEDIC[employer] Member Subscriber Plan / Payer (Ef fective 2019-Present) Name:LO AYOUB Relation to Subscriber:Self Name:Lo Olson Payer ID:[id number] Group ID:[id number] Type:Not on file Address: [place] [address] [address] [id number] Care Teams Uniform Attendant Relationship Specialty Start Date End Date Jed Alonso MD [address] [place] [address] PCP - General Internal Medicine 01/01/18
--- OUTSIDE RECORDS SUMMARY | 2024-11-07 12:40 | XMS_ITS | Clinical Summary ---
Author Organization [facility] Address [address] [place] [address] Care Team Providers Care Card Grinder Helper Name Role Phone Jed Alonso MD Primary [...] age to complete this topic Care Teams Card Grinder Helper Relationship Specialty Start Date End Date Jed Alonso MD PCP - General Internal Medicine 03/04/22
== END 2024-11-07 11:05 | disposition home or self-care (01) ==
LOC: HO.HSM 10:21
PROVIDERS: PCP Internal Medicine; Visit Provider Registered Nurse
DX: G43.909 Migraine, unspecified, not intractable, without status migrainosus (principal); G44.209 Tension-type headache, unspecified, not intractable; R41.3 Other amnesia; J32.2 Chronic ethmoidal sinusitis
CPT/HCPCS: 99214

== ENCOUNTER → 2024-11-07 10:20 | Outpatient (BNVA) | payer OTHER, SELFPAY | PROVIDERS: PCP Internal Medicine; Visit Provider Registered Nurse | DX: G43.909 Migraine, unspecified, not intractable, without status migrainosus (principal); G44.209 Tension-type headache, unspecified, not intractable; J32.2 Chronic ethmoidal sinusitis; R41.3 Other amnesia | CPT/HCPCS: 99212 ==

== ENCOUNTER 2025-01-05 10:37 | Outpatient (REF) | payer OTHER, SELFPAY ==
[2025-01-05 13:10] LABS: Folate 9.0 ng/mL (> or = 4.0); Vitamin B12 221 pg/mL (200-900)
== END 2025-01-05 10:38 | disposition home or self-care (01) ==
LOC: HO.LAB 10:37
PROVIDERS: PCP Internal Medicine; Visit Provider Registered Nurse
DX: G43.909 Migraine, unspecified, not intractable, without status migrainosus (principal); G44.209 Tension-type headache, unspecified, not intractable; R41.3 Other amnesia; J32.2 Chronic ethmoidal sinusitis; Z79.899 Other long term (current) drug therapy
CPT/HCPCS: 36415; 82607; 82746; 99212

== ENCOUNTER 2025-01-05 10:37 | Outpatient (AMB) | payer OTHER, SELFPAY ==
--- NOTE | 2025-01-05 10:41 | A.OFFVIS_ITS ---
Intake Visit Reasons: 2m COVARRUBIAS Slot Machine Key Person Required: Yes Slot Machine Key Person Name: #[id number] Allergies tuberculin, purified protein deriva (TUBERCULIN,PURIF.PROT.DERIV.) Allergy (Unknown, Unverified 01/05/25 10:43) ITCHY RED diphenhydramine (From Benadryl) Allergy (Verified 01/05/25 10:43) Unknown penicillin V Allergy (Verified 01/05/25 10:43) Unknown Medication List - Last Reconciled 01/05/25 by Caryn Adhikari, TADEO albuterol sulfate mg inhalation Q4H PRN ammonium lactate 12% appl topical atorvastatin 20 mg PO BEDTIME blood-glucose transmitter (Smart Panelcom G6 Transmitter device) As directed bupropion HCl XL 150 mg PO DAILY buspirone 15 mg PO TID cyclobenzaprine 5 mg PO DAILY PRN dicyclomine 10 mg PO QID escitalopram oxalate 20 mg PO QAM galcanezumab-gnlm (Emgality Pen) 120 mg subcut QMONTH 30 days insulin glargine U-300 conc (Toujeo Max U-300 SoloStar) 13 units subcut BEDTIME insulin glargine U-300 conc (Toujeo SoloStar U-300 Insulin) 8 units subcut BEDTIME insulin pump cart,auto,BT,G6/7 (Omnipod 5 G6-G7 Pods (Gen 5) subcutaneous cartridge) As directed lancets (FreeStyle Lancets) As directed lisinopril 30 mg PO DAILY loratadine 10 mg PO DAILY 30 days lorazepam 0.5 mg PO DAILY PRN nortriptyline 25 mg PO BEDTIME 90 days ondansetron 4 mg PO DAILY PRN 30 days pantoprazole 40 mg PO QAM rizatriptan take 1 tab at onset of headache; if no relief may repeat 1 tab after at least 4 hrs; max = 2 tabs/24 hr PO 30 days semaglutide (Ozempic) mg subcut sennosides (senna) 8.6 mg PO DAILY vitamin A 1 cap PO DAILY zolpidem 10 mg PO BEDTIME HPI Comments Details: She took first dose of Emgality around beginning of 11/2024 which helped some, but she did not receive any more doses from pharmacy and was overdue for next dose. She was also taking nortriptyline 25mg at bedtime. No medication side effects. Migraines seemed better with medications. She was still having some headaches, but not as severe. She was concerned with forgetfulness. She was at the gym and forgot about appointment today until her boyfriend reminded her. She would forget what she was going to say in the middle of a sentence. She denies significant stress, although she reports that there was apparently some finding on her cervix and she was scheduled for hysterectomy soon. Sleep was okay with medication. She reports having trouble with memory since having COVID few years ago. She reports family history of dementia in mother in 50s-60s. Depakote did not help and she was having headache almost every day with bad headache at least 4x/week associated with photophobia, sonophobia, and dizziness. She occasionally had some left sided facial numbness with migraines. Rizatriptan as needed helped, but she was sometimes running out of medication before refill was due. She had used Excedrin migraine about 1/day for at least 1 month. 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 Previously, was having 2 bad migraines/week with photophobia, sonophobia, and nausea. She also had some blurred vision, dizziness, and occasional left sided facial numbness with migraines. Verapamil did not help. She had milder headache 2-3x/week. Sleep was okay with zolpidem. Taking loratadine for allergy symptoms. Needs to lay down in dark, quiet room when she has migraine. Occasional numbness to left side of face for about 5 minutes. Fioricet as needed helped, but medication was not covered by insurance. Previously, was having nasal congestion and dryness, along with facial pressure over sinuses. Loratadine works better than cetirizine. Short-term memory not so good and forgetful at times. She has had migraine headaches for many years, about 2 migraines/month with nausea, vomiting, reduced vision, and sometimes left-sided numbness on the scalp and face. Excedrin no longer works. Family history of migraine in her sister. No triggers identified. CAT scan at [facility] normal. Had intestinal surgery for hernia and peptic ulcer. Has trouble initiating and maintaining sleep. [facility] Medical History (Updated 08/25/24 @ 11:07 by Caryn Adhikari CNP) Asthma Hypertension Major depression Tension headache Sinusitis chronic, ethmoidal Memory loss Cerebral microvascular disease Migraine Diabetes mellitus Surgical History (Updated 08/25/24 @ 10:14 by Cher Skelton MA) H/O right knee surgery History of intestinal surgery Social History (Updated 08/25/24 @ 10:14 by Cher Skelton MA) Patient Tobacco Use Status: Never used Tobacco Review of Systems Const Denies chills, Denies daytime sleepiness, Denies difficulty sleeping, Denies fatigue, Denies fever(s), Denies frequent falls, Reports headache(s), Denies increased appetite, Denies poor appetite, Denies snoring, Denies weakness, Denies weight gain and Denies weight loss Eyes Denies loss of vision ENT Denies vertigo, Denies dizziness, Reports headache(s), Reports nasal discharge and Denies neck pain Card Denies chest pain at rest, Denies chest pain with activity, Denies syncope, Denies leg edema, Denies palpitations, Denies dyspnea and Denies dyspnea on exertion Resp Denies cough, Denies dyspnea, Denies dyspnea on exertion and Denies snoring GI Denies abdominal pain, Denies constipation, Denies heartburn, Denies diarrhea and Denies nausea Denies urinary frequency, Denies urinary incontinence and Denies urinary urgency Musc Denies abnormal gait, Denies back pain, Denies myalgias, Denies arthralgias, Denies neck pain, Denies numbness, Denies stiffness and Denies tingling Neuro Denies abnormal gait, Denies vertigo, Denies dizziness, Denies syncope, Denies frequent falls, Reports headache(s), Denies lack of coordination, Denies loss of vision, Denies memory loss, Denies numbness, Denies Other visual disturbances, Denies restless legs, Denies seizure-like activity, Denies tingling, Denies paresthesias, Denies tremor(s) and Denies weakness Psych Denies anxiety, Denies depression, Denies memory loss, Denies visual hallucinations and Denies hallucinations Endo Denies fatigue and Denies palpitations Physical Exam Const Other: General Appearance:? normal, in no acute distress. Heart:? S1, S2 normal, no murmurs. Lungs:? clear anteriorly and posteriorly. Musculoskeletal:? normal. Extremities:? no edema. Psych:? alert, as below. Neuro Other: Abnormal Neurological Findings:?MMSE 22/30 Mental Status: alert, as below. Cranial Nerves: Pupils are equal, round, and reactive to light. External ocular muscles are intact. Visual kyle are full, no ptosis. Face is symmetrical, no facial weakness or droop. Facial sensations are normal. Tongue protrudes in midline. Palate elevates symmetrically. Shoulder shrugging is normal Motor Examination: Normal muscle tone, bulk and strength. No atrophy or fasciculations. No drift of the extended upper extremities. DTR 2+. Plantars are flexor. Sensory Exam: Normal light touch, temperature, pinprick, vibration, and joint- position sensations. Rhomberg sign is absent. Coordination: No ataxia. No titubation. Gtjord-vd-ltpk, ispc-vldb-tmqh test, and rapid alternating movements were normal. Gait Exam: Within normal limits. Cerebellar Signs: Eevfyn-ho-ligh is okay. Extrapyramidal System: No tremor, rigidity with normal facial expressions. No bradykinesia. No bradyphrenia. Normal arm swing and posture. No propulsion or retropulsion. Speech: Normal. MMSE Level of Consciousness: Alert. Orientation: Knows correct year, month, and season. Not date or day. Knows correct city, county and state. Knows correct location and floor. Registration: Able to register 3 objects. Attention: Serial 7's unable. Recall: Able to recall 2 out of 3 objects. Language: Normal spontaneous speech, fluency, repetition, naming, comprehension, reading, and writing. Total Score: 22/30. Results Reviewed Results Reviewed: CT Brain 06/17/2024 at [facility] – [place], [place]: No acute intracranial process seen. Labs 06/2024: ESR 25, CRP <0.04, TSH ok, Lyme negative MRI Brain 12/12/20: mucoperiosteal thickening in the sphenoid and left greater than right ethmoid sinuses. Brain normal. Assessment & Plan Assessment & Plan (1) Migraine: Code(s): G43.909 - Migraine, unspecified, not intractable, without status migrainosus Category: Medical Qualifiers: Migraine type: unspecified Status migrainosus presence: without status migrainosus Intractability: not intractable Qualified Code(s): G43.909 - Migra ine, unspecified, not intractable, without status migrainosus Plan: Continue Emgality 120mg/mL subcutaneous monthly. Continue rizatriptan 10mg 1 tablet as needed for migraine. Continue ondansetron 4mg 1 tablet as needed for nausea #10 for 30 days. She has tried and failed multiple medications including topiramate, amitriptyline, verapamil, and Depakote. Beta blockers were contraindicated due to asthma. (2) Tension headache: Code(s): G44.209 - Tension-type headache, unspecified, not intractable Category: Medical Plan: Continue nortriptyline 25mg 1 tablet at bedtime. (3) Memory loss: Code(s): R41.3 - Other amnesia Category: Medical Plan: Reviewed labs ordered. Given reported family history, discussed option for Abeta 42/40 lab. (If positive, could consider further work up to determine if she would be appropriate candidate for amyloid targeting therapy) - declining at this time. Referral for neuropsych testing placed. (4) Sinusitis chronic, ethmoidal: Code(s): J32.2 - Chronic ethmoidal sinusitis Category: Medical Plan: Continue loratadine 10mg 1 tablet daily. Plan Meds tried: topiramate, amitriptyline, verapamil, excedrin, sumatriptan, butalbital (worked, but insurance did not cover), beta blockers contraindicated due to asthma Orders: Orders Vitamin B12 and Folate Today R41.3 - Other amnesia Referrals Neuropsychiatry Referral R41.3 - Other amnesia Medications: Refilled galcanezumab-gnlm (Emgality Pen) 120 mg subcut QMONTH 1 mL 5RF 30 days rizatriptan take 1 tab at onset of headache; if no relief may repeat 1 tab after at least 4 hrs; max = 2 tabs/24 hr PO 10 tabs 5RF 30 days loratadine 10 mg PO DAILY 90 tabs 1RF 30 days nortriptyline 25 mg PO BEDTIME 90 caps 1RF 90 days ondansetron 4 mg PO DAILY PRN 10 tabs 5RF nausea and vomiting 30 days Coding Level of Care Code Est Pt Level 4 (49031) Diagnoses Migraine without status migrainosus, not intractable, unspecified migraine type G43.909 Migraine type: unspecified Status migrainosus presence: without status migrainosus Intractability: not intractable Tension headache G44.209 Memory loss R41.3 Sinusitis chronic, ethmoidal J32.2
--- OUTSIDE RECORDS SUMMARY | 2025-01-05 15:44 | XMS_ITS | Clinical Summary ---
Author Organization [facility] Address [address] [place] [address] Care Team Providers Care Bi Report Developer Name Role Phone Jed Alonso MD Primary [...] 30 UNIDADES POR VIA SUBCUTANEA TODO LOS FGAAN EN JULIO CESAR MANANA 0 05/05/2022 Active [...] bruising 05/19/2022 Ecchymosis 05/19/2022 Postoperative hematoma of nnuez bcutaneous tissue following non-dermatologic procedure 05/19/2022 Anxiety [...] age to complete this topic Care Teams Bi Report Developer Relationship Specialty Start Date End Date Jed Alonso MD PCP - General Internal Medicine 03/04/22
--- OUTSIDE RECORDS SUMMARY | 2025-01-05 15:44 | XMS_ITS | Encounter Summary ---
Author Organization [facility] Address [address] [place] [address] Care Team Providers Care Cook Relief Name Role Phone Jed Alonso MD Primary Care Provider [phone] Reason for Visit * Reason Onset Date Comments Med Refill 01/02/2025 Encounter Details Date Type Department Care Team ([facility] st Contact Info) Description 01/02/2025 Telephone Internal Medicine [address] [place] [address] Jed Alonso MD [address] [place] [phone] Social History Tobacco Use Types Packs/Day Years [...] as of this encounter Progress Notes * Blanca Huitron MA - 01/02/2025 2:02 PM EST Patient requested for provider to refill the medication fluconazole tablet. (NOT SEEN ON MED LIST ) * Dominique Freeman - 01/02/2025 10:37 AM EST Patient requested for provider to refill the medication fluconazole tablet. Call back number [phone] documented in this encounter Plan of Treatment Upcoming Encounters Date Type Department Care Team (Late st Contact Info) Description 01/24/2025 9:45 AM EST Office Visit Internal Medicine - [place] [address] [facility] [address] [place] [phone] Jed Alonso MD [address] [place] [phone] 02/07/2025 11:30 AM EST Office Visit Endocrinology - [place] [address] [place] [address] [address] Bowen PA [address] [place] [address] 03/23/2025 9:15 AM EST Office Visit Bariatric Surgery - [place] [address] [facility] [address] [place] [phone] Orestes Yepez MD [address] [place] [phone] 04/12/2025 3:00 PM EST Office Visit Gastroenterology - [address] [facility] [address] [facility] [address] [place] [phone] Carmen Watt PA [address] [facility] [address] [place] [address] 05/29/2025 11:00 AM EDT Office Visit Internal Medicine - [place] [address] [facility] [address] [place] [phone] Jed Alonso MD [address] [place] [phone] 09/05/2025 10:00 AM EDT Office Visit [facility] Hematology Oncology [address] [place] [phone] Opal Flores MD [address] [place] [phone] documented as of this encounter Visit Diagnoses Not on filedocumented in this encounter Care Teams Cook Relief Relationship Specialty Start Date End Date Jed Alonso MD [address] [address] PCP - General Internal Medicine 01/01/18 documented as of this encounter
--- OUTSIDE RECORDS SUMMARY | 2025-01-05 15:44 | XMS_ITS | Clinical Summary ---
Author Organization [address] [place] [address] [place] [phone] Phone Care Team Providers Care Registrar Museum Name Role Phone Jed Alonso MD Primary Care Provider [phone] Allergies Active Allergy Reactions Criticality Noted Date [...] DE ACOSTARSE PARA DORMIR 05/12/19 23 Active dicyclomine (BENTYL) 10 mg capsule LAURA 1 CAPSULA POR VIA ORAL CUATRO VECES AL STANLEY ANTES DE COMIDAS Y POR LA NOCHE 120 capsule 10 03/17/19 25 Active lisinopriL (PRINIVIL,ZESTRI L) 20 mg tablet LAURA 1 Y 1/2 TABLETAS POR VIA ORAL DIARIAMENTE 45 tablet 10 20 25 Active atorvastatin (LIPITOR) 20 mg tablet [...] 770 g 2 05/20/19 25 026 Active psyllium (Metamucil, with sugar,) 3.4 gram [...] NO QUIEBRE, PARTA O CHUPE 30 tablet 07/23/19 25 Active blood-glucose sensor (Dexcom G7 Sensor) deviceIndication s:Type 2 diabetes mellitus without complication, with long-term current use of insulin ([facility] V24, [facility] V28) Change sensor every 10 days 9 each 3 07/07/20 25 Active levalbuterol (XOPENEX HFA) 45 mcg/actuation inhaler INHALE 2 BOCANADAS POR VIA ORAL CADA 4 HORAS KARLOS SEA NECESARIO PARA SILBIDOS 15 g 08/13/19 25 Active freestyle (FreeStyle Lancets) 28 gauge lancets Use to check bs 3 times day 300 each 08/17/19 25 Active pen needle, diabetic (BD Ultra-Fine Short Pen Needle) 31 gauge x 5/16 needle Use to inject 1-4 times daily as directed 100 each 08/17/19 Active Ozempic 1 mg/dose (4 mg/3 mL) injection penIndications:T ype 2 diabetes mellitus without complication, with long-term current use of insulin ([facility] V24, [facility] V28) INYECTAR 1MG SUBCUTANEAMENTA CADA 7 FAGAN 3 mL 09/14/19 25 Active cyclobenzaprine (FLEXERIL) 5 mg tablet Take 1 tablet (5 mg total) by mouth at bedtime. 30 tablet 11/12/19 25 Active vitamin A 3,000 mcg (10,000 unit) tabletIndication s:Intestinal malabsorption following gastrectomy Take 1 tablet (10,000 Units total) by mouth 1 (one) time each day. 30 tablet 11/10/19 25 025 fluconazole (DIFLUCAN) 150 mg tablet Take 1 tablet (150 mg total) by mouth See administration instructions for 1 day. Take one tab now. Repeat in 7 days if symptoms persist. 2 tablet 01/03/20 25 025 Active Problems Problem Noted Date Diagnosed Date Asthma, mild intermittent 08/16/2024 Benign essential HTN 08/16/2024 Diabetes ([facility] V24, [facility] V28) 08/16/2024 Cervical radiculitis 06/30/2024 Abdominal cramping [...] Severe obesity (BMI 35.0-39. 9) with comorbidity ([facility] V24, [facility] V28) 05/26/2017 Bipolar 1 disorder ([facility] V24, [facility] V28) Nephrolithiasis 01/15/2017 Asthma 07/30/2016 Vitamin D deficiency 11/19/2015 PTSD (post-traumatic stress disorder) 09/01/2014 Encounters Date Type Department Care Team Description 01/02/2025 Telephone Internal Medicine [address] [place] [phone] Jed Alonso MD 11/25/2024 10:30 AM EDT Office Visit Internal Medicine [address] [place] [phone] Jed Alonso MD Diabetes mellitus type 2 in nonobese ([facility] V24, [facility] V28) (Primary Dx); Anxiety; Hypercholesterolemia; Iron deficiency anemia due to sideropenic dysphagia; Primary hypertension 11/03/2024 1:30 PM EDT Office Visit Bariatric Surgery [address] [place] [phone] Orestes Yepez MD Over weight (Primary Dx); Constipation, unspecified constipation type; Blood in stool; Intestinal malabsorption following gastrectomy from Last 3 Months Surgical History Surgery Date Site/Laterality Comments OTHER SURGICAL HISTORY 02/20/19 PROCEDURE: NC LAPS GSTR RSTCV PX W/BYP LENNY-EN-Y LIMB <150 CM; COMMENT: Marleni CARPAL TUNNEL RELEASE PROCEDURE: HISTORICAL CARPAL TUNNEL REL SECTION PROCEDURE: HISTORICAL DELIVERY OTHER SURGICAL HISTORY PROCEDURE: HISTORY OTHER; COMMENT: Breast reduction OTHER SURGICAL HISTORY Left PROCEDURE: HISTORY OTHER; COMMENT: Ulnar nerve surgery OTHER SURGICAL HISTORY PROCEDURE: HISTORY OTHER; COMMENT: Hemorrhoids UPPER GASTROINTESTINAL ENDOSCOPY 04/2017 PROCEDURE: NC UPPER GI ENDOSCOPY PERFORMED; COMMENT: Performed by Dr. Pradhan in April 2017 UPPER GASTROINTESTINAL ENDOSCOPY 07/06/19 PROCEDURE: NC UPPER GI ENDOSCOPY PERFORMED; COMMENT: Normal post gastric bypass appearance, no ulcers. 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 9) with comorbidity ([facility] V24, [facility] V28) 05/26/2017 DX:Severe obesity (BMI 35.0- 39.9) with comorbidity ([facility]) Anxiety 09/23/2017 DX:Anxiety Depression 09/23/2017 DX:Depression Diabetes mellitus, type 2 ([facility] V24, [facility] V28) 09/23/2017 DX:Diabetes mellitus, type 2 ([facility]); COMMENT: Resolved after Bariatric surgery, weight loss History of bariatric surgery 09/23/2017 DX: History of bariatric surgery; COMMENT: 02/20/17 Hypertension 09/23/2017 DX:Hypertension Asthma 07/30/2016 DX:Asthma Bipolar 1 disorder ([facility] V24, [facility] V28) 01/15/2017 DX:Bipolar 1 disorder ([facility]) Nephrolithiasis 01/15/2017 DX:Nephrolithias is PTSD (post-traumatic stress [...] Reading Time Taken Comments Blood Pressure 120/80 11/25/2024 10:27 AM EDT Pulse 66 11/25/2024 10:27 AM EDT Temperature 35.7 C (96.3 F) 11/25/2024 10:27 AM EDT Respiratory Rate 16 05/20/2024 9:43 AM EDT Oxygen Saturation 100% 09/05/2024 3:30 PM EDT Inhaled Oxygen Concentration - - Weight 76.4 kg (168 lb 6.4 oz) 11/25/2024 10:27 AM EDT Height 162.6 cm (5' 4 ) 11/25/2024 10:27 AM EDT Body Mass Index 28.91 11/25/2024 10:27 AM EDT Plan of Treatment Upcoming Encounters Date Type Department Care Team (Late st Contact Info) Description 01/24/2025 9:45 AM EST Office Visit Internal Medicine - [address] [place] [phone] Jed Alonso MD [address] [place] [phone] 02/07/2025 11:30 AM EST Office Visit Endocrinology - [place] [address] [place] [phone] [address] Bowen PA [address] [place] [address] 03/23/2025 9:15 AM EST Office Visit Bariatric Surgery - [place] [address] [facility] [address] [place] [phone] Orestes Yepez MD [address] [place] [phone] 04/12/2025 3:00 PM EST Office Visit Gastroenterology - [address] [facility] [address] [facility] [address] [place] [phone] Carmen Watt PA [address] [facility] [address] [place] [address] 05/29/2025 11:00 AM EDT Office Visit Internal Medicine - [place] [address] [facility] [address] [place] [phone] Jed Alonso MD [address] [place] [phone] 09/05/2025 10:00 AM EDT Office Visit [facility] Hematology Oncology [address] [place] [phone] Opal Flores MD [address] [place] [phone] Health Maintenance Due Date Last Done Comments Breast Cancer Screening 1978 Colorectal Cancer Screening: Colonoscopy 1978 Diabetes: Annual Foot Exam 1988 Diabetes: Annual Retina Eye Exam 1988 DTaP,Tdap,and Td Vaccines (1 - Tdap) 1997 Hepatitis B Vaccines (1 of 3 - 19+ 3-dose series) 1997 Cervical Cancer Screening: P ap Smear 07/22/1999 Pneumococcal Vaccine: Pediatrics (0 to 5 Years) and At-Risk Patients (6 to 49 Years) (2 of 2 - PCV) 11/18/2016 11/19/2015 HIV Screening 01/25/2022 Hepatitis C Screening 01/25/2022 [...] complication, with long-term current use of insulin ([facility] V24, [facility] V28) VITAMIN A Routine 11/03/2024 2:03 PM EDT Intestinal malabsorption following gastrectomy COMPREHENSIVE METABOLIC PANEL Routine 05/03/2024 10:43 AM EDT LUQ pain Rectal bleeding History of gastric restrictive surgery Hemorrhoids, unspecified hemorrhoid type MICROALBUMIN CREATININE URINE RATIO Routine 03/17/2024 2:44 PM EST Type 2 diabetes mellitus with other specified complication, with long-term current use of insulin ([facility] V24, [facility] V28) LIPID PANEL WITH REFLEX TO DIRECT LDL Routine 03/17/2024 2:44 PM EST Type 2 diabetes mellitus with other specified complication, with long-term current use of insulin ([facility] V24, [facility] V28) from Last 3 Months or Most Recently Relevant to Health Maintenance Results * (ABNORMAL) Vitamin A (11/03/2024 2:03 PM EDT) [facility] Signature Vitamin A 29(L) 38 - 106 ug/dL 11/09/2024 6:07 AM EDT [facility] Comment: This test was developed and the performance characteristics determined by [facility]. It has not been cleared or approved by the FDA. The laboratory is regulated under CLIA as qualified to perform high-complexity testing. This test is used for patient testing purposes. It should not be regarded as investigational or for research. Test performed at [facility], [address], [place] [address] Emely Ponce MD, PhD - Fusion Operator Blood Venous blood specimen / Unknown Venipuncture / Unknown 11/03/2024 2:03 PM EDT 11/03/2024 2:03 PM EDT us Orestes Yepez MD LAB BLOOD ORDERABLES Final R esult [facility] [address] [place] [address] * Hemoglobin A1c (11/03/2024 2:03 PM EDT) [facility] Hemoglobin A1C 5.6 <6.5 % LAB CHEMISTRY METHOD 11/03/2024 10:03 PM EDT [facility] Mean Bld Glu Estim. 114 mg/dL LAB CHEMISTRY METHOD 11/03/2024 10:03 PM EDT [facility] Blood Venous blood specimen / Unknown Venipuncture / Unknown 11/03/2024 2:03 PM EDT 11/03/2024 2:03 PM EDT Daniela ROY LAB BLOOD ORDERABLES Final Result Performing Organization Address City/[facility]/ZIP Co de Phone Number [facility] [address] [place] [address], * (ABNORMAL) Comprehensive metabolic panel (05/03/2024 10:43 AM EDT) [facility] Sodium 136 133 - 145 mmol/L LAB CHEMISTRY METHOD 05/03/2024 4:08 PM [facility] Potassium 4.5 3.5 - 5.5 mmol/L LAB CHEMISTRY METHOD 05/03/2024 4:08 PM [facility] Comment:Hemolysis present Chloride 105 96 - 110 mmol/L LAB CHEMISTRY METHOD 05/03/2024 4:08 PM [facility] CO2 26 21 - 32 mmol/L LAB CHEMISTRY METHOD 05/03/2024 4:08 PM [facility] Anion Gap 5 3 - 11 LAB CHEMISTRY METHOD 05/03/2024 4:08 PM [facility] Glucose 81 70 - 100 mg/dL LAB CHEMISTRY METHOD 05/03/2024 4:08 PM [facility] BUN 16 5 - 25 mg/dL LAB CHEMISTRY METHOD 05/03/2024 4:08 PM [facility] Creatinine 0.68 0.50 - 1.10 mg/dL LAB CHEMISTRY METHOD 05/03/2024 4:08 PM [facility] eGFR 110 >=60 mL/min/1. 73m2 LAB CHEMISTRY METHOD 05/03/2024 4:08 PM [facility] Comment:Calculation based on the Chronic Kidney Disease Epidemiology Collaboration (CKD-EPI) equation refit without adjustment for race. BUN/Creatinine Ratio 23.5 LAB CHEMISTRY METHOD 05/03/2024 4:08 PM [facility] Calcium 9.0 8.5 - 10.5 mg/dL LAB CHEMISTRY METHOD 05/03/2024 4:08 PM [facility] AST (SGOT) 33 10 - 42 unit/L LAB CHEMISTRY METHOD 05/03/2024 4:08 PM [facility] ALT (SGPT) 34 10 - 60 unit/L LAB CHEMISTRY METHOD 05/03/2024 4:08 PM [facility] Alkaline Phosphatase 146(H) 42 - 121 unit/L LAB CHEMISTRY METHOD 05/03/2024 4:08 PM [facility] Total Protein 7.0 6.0 - 8.0 g/dL LAB CHEMISTRY METHOD 05/03/2024 4:08 PM [facility] Albumin 3.5 3.2 - 5.0 g/dL LAB CHEMISTRY METHOD 05/03/2024 4:08 PM [facility] Total Bilirubin 0.5 0.0 - 1.4 mg/dL LAB CHEMISTRY METHOD 05/03/2024 4:08 PM [facility] Blood Venous blood specimen / Unknown Venipuncture / Unknown 05/03/2024 10:43 AM EDT 05/03/2024 10:43 AM EDT Spencer ROY LAB BLOOD ORDERABLES Final Resu lt [facility] [address] [place] [address], [place] [phone] * Lipid panel with reflex to direct LDL (03/17/2024 2:44 PM EST) Cholesterol 156 0 - 200 mg/dL LAB CHEMISTRY METHOD 03/17/2024 5:05 PM EST [facility] Triglycerides 49 0 - 150 mg/dL LAB CHEMISTRY METHOD 03/17/2024 5:05 PM [facility] HDL 83 >=40 mg/dL LAB CHEMISTRY METHOD 03/17/2024 5:05 PM [facility] LDL Calculated 63 0 - 100 mg/dL LAB CHEMISTRY METHOD 03/17/2024 5:05 PM [facility] VLDL Cholesterol Rommel 9.8 mg/dL LAB CHEMISTRY METHOD 03/17/2024 5:05 PM [facility] Non HDL Chol. (LDL+VLDL) 73 <145 mg/dL LAB CHEMISTRY METHOD 03/17/2024 5:05 PM EST [facility] Chol/HDL Ratio 1.9 0.0 - 4.4 LAB CHEMISTRY METHOD 03/17/2024 5:05 PM [facility] Blood Venous blood specimen / Unknown Venipuncture / Unknown 03/17/2024 2:44 PM EST 03/17/2024 2:44 PM EST us Daniela ROY LAB BLOOD ORDERABLES Final Result [facility] [address] [place] [address], [place] [phone] * Microalbumin creatinine urine ratio (03/17/2024 2:44 PM EST) Creatinine, Urine 184.0 mg/dL LAB CHEMISTRY METHOD 03/17/2024 5:46 PM EST [facility] Microalb, Ur 10.0 0.0 - 29.0 mg/L LAB CHEMISTRY METHOD 03/17/2024 5:46 PM EST [facility] Microalb/Creat Ratio 5 <30 mg/g creat LAB CHEMISTRY METHOD 03/17/2024 5:46 PM EST [facility] Urine Urine specimen from urethra / Unknown Non-blood Collection / Unknown 03/17/2024 2:44 PM EST 03/17/2024 2:44 PM EST us Daniela ROY LAB URINE ORDERABLES Final Result [facility] [address] [place] [address], [place] [phone] from Last 3 Months or Most Recently Relevant to Health Maintenance Insurance [facility] Member Subscriber Plan / Payer (Ef fective 2019-Present) Name:LO AYOUB Relation to Subscriber:Self Name:Lo Olson Payer ID:[id number] Group ID:[id number] Type:Not on file Address: [facility] [place] [address] Care Teams Registrar Museum Relationship Specialty Start Date End Date Jed Alonso MD [address] [address] PCP - General Internal Medicine 01/01/18
--- OUTSIDE RECORDS SUMMARY | 2025-01-05 15:45 | XMS_ITS | Data Portability ---
Author Organization [place] - [facility], [facility] Address [address] [place] [address] Care Team Providers Care Measurement Superintendent Name Role Phone MANISHA HIDALGO Primary Care Provider [phone] Assessment Encounter Date Assessment Date Assessment LastModified by Organization Details LastModified Time 09/22/2023 09/22/2023 Nature of the diagnosis was discussed with the patient and family member today provide mostly translated for the visit. 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 Does have likely new component of patella tendinopathy on that left side. Discussed multiple treatment options to include anti-inflammato raysa therapy cortisone injection as well as a knee strap. Patient like to go forward with a cortisone injection today as well as will proceed to get a jumpers knee strap. All questions were answered to patient's satisfaction. Will follow-up on a as needed basis going forward. [email or web address] Not available 09/22/2023 16:47:00 Plan of Treatment Reminders Order Date Submit Date Provider Last Modified By Organization Details Last Modified Time Details Appointments NEW PATIENT 15 2024 03:15P M Reilly oPst PA-C Not available Not available Not available RECHECK 15 2025 10:00A M Reilly Post PA-C Not available Not available Not available Lab None recorded . Referral None recorded . Procedures None recorded . Surgeries None recorded . Imaging None recorded . Medication Orders None recorded . Patient TargetsNo targets recorded. Patient InstructionsNo instructions recorded. Reason for Referral Physical Therapist Referral for Pain of bilateral knee regions VMO Strengthening, Quad & Hamstring Stretching, Patella Mobilization, Hager TapingBilateral knees osteoarthritis Referring Physician: Reilly Post, Orthopedic Surgery, Encounter Date: 01/05/2025 Results Created Date Observation Date Name Description Value Unit Range Abnormal Flag Note LastModifiedBy Organization Detail LastModifiedTime 10/16/19 24 09/15/2019 imagi ng/di agnos tic resul t No observ ation record ed. [email or web address] Not Available 09/18 01:31:46 10/16/19 24 07/29/2019 imagi ng/di agnos tic resul t No observ ation record ed. [email or web address] Not Available 09/18 01:31:47 10/16/19 24 11/20/2020 imagi ng/di agnos tic resul t No observ ation record ed. [email or web address] Not Available 09/18 01:31:54 10/16/19 24 11/21/2020 imagi ng/di agnos tic resul t No observ ation record ed. [email or web address] Not Available 09/18 01:32:15 10/16/19 24 11/20/2020 imagi ng/di agnos tic resul t No observ ation record ed. [email or web address] Not Available 09/18 01:32:24 10/16/19 24 11/21/2020 imagi ng/di agnos tic resul t No observ ation record ed. [email or web address] Not Available 09/18 01:32:25 Result Notes None recorded. Problems Name Problem SNOMED Code Status Onset Date Resolution Date Notes Provider Name and Address Organization Details Recorded Time Pain of joint of knee 4217853936 Active 2021 Status : 'A'; Not Available [facility] 4 10:57:31 Pain of right knee joint [id number] Active 2023 [facility] [place] [facility] 4 14:38:05 Problem Notes None recorded. Procedures Surgical History Date Name Laterality Status Provider Name and Address Organization Details Recorded Time 5 Knee Kenalog 40 1cc Injection, Bilateral completed Basil Garcia PA-C [address] [facility] [address], [place], [address], [facility] 09/09/2024 10:33:54 5 Knee Kenalog 40 1cc Injection, Bilateral completed Basil Garcia PA-C [address], [place], [address], [facility] 03/11/2024 11:45:39 4 Sports Knee 4&1 completed Basil Garcia PA-C [address], [place], [address], [facility] 09/22/2023 16:45:40 4 [id number] Therapeutic Exercise (1:1) cancelled Joshua Story PT [address], [place], [address], [facility] 09/15/2023 11:03:06 4 [id number] Therapeutic Exercise (1:1) completed Eduardo Garza [employer]OM[employer] HELPER [address], [place], [address], [facility] 09/07/2023 13:50:11 4 81205 Therapeutic Exercise (1:1) cancelled Eduardo Garza PTA [address], [place], [address], [facility] 07/31/2023 13:01:01 4 58534: Manual therapy cancelled Eduardo Garza PTA [address], [place], [address], [facility] 07/31/2023 13:01:01 4 44900 Therapeutic Exercise (1:1) cancelled Eduardo Garza TOMB MAKER HELPER [address], [place], [address], [facility] 07/27/2023 11:46:02 4 90176: Manual therapy cancelled Eduardo Garza TOMB MAKER HELPER [address], [place], [address], [facility] 07/27/2023 11:46:02 4 03323 Therapeutic Exercise (1:1) completed Eduardo Garza, TOMB MAKER HELPER [address], [place], [address], [facility] 07/24/2023 12:42:37 4 30694: Manual therapy completed Eduardo Garza, TOMB MAKER HELPER [address], [place], [address], [facility] 07/24/2023 12:42:37 4 17082 Therapeutic Exercise (1:1) completed Joshua Story, PT [address], [place], [address], [facility] 07/17/2023 13:52:34 4 53156: Manual therapy completed Joshua Story, PT [address], [place], [address], [facility] 07/17/2023 13:52:34 4 74899 Therapeutic Exercise (1:1) cancelled Joshua Story, PT [address], [place], [address], [facility] 07/17/2023 09:02:46 4 43775: Manual therapy cancelled Joshua Story, PT [address], [place], [address], [facility] 07/17/2023 09:02:46 4 27715 Therapeutic Exercise (1:1) completed Joshua Story, PT [address], [place], [address], [facility] 07/15/2023 07:08:36 4 23484: Manual therapy completed Joshua Story, PT [address], [place], [address], [facility] 07/15/2023 07:08:36 4 76920 Therapeutic Exercise (1:1) completed Joshua Story, PT [address], [place], [address], [facility] 07/08/2023 15:52:31 4 67182: Manual therapy completed Joshua Story, PT [address], [place], [address], [facility] 07/09/2023 14:21:15 4 90213 Therapeutic Exercise (1:1) completed Peggy Nicole, TOMB MAKER HELPER [address], [place], [address], [facility] 07/06/2023 14:59:45 4 86495: Manual therapy completed Peggy Nicole, TOMB MAKER HELPER [address], [place], [address], [facility] 07/06/2023 14:59:42 4 73543 Therapeutic Exercise (1:1) completed Joshua Story, PT [address], [place], [address], [facility] 07/02/2023 20:26:40 4 50872: Manual therapy completed Joshua Story, PT [address], [place], [address], [facility] 07/02/2023 20:26:50 4 99316 Therapeutic Exercise (1:1) completed Joshua Story, PT [address], [place], [address], [facility] 06/28/2023 19:07:47 4 97595: Low complexity PT Eval completed Joshua Story, PT [address], [place], [address], [facility] 06/28/2023 19:07:37 Imaging Results None recorded. Procedure Notes None recorded. Medical Equipment None Reported. Allergies Allergen ID Allergen Name Allergen Category Reaction Reaction Severity Criticality Documentation Date Start Date Code Code System Note Provider Name and Address Organization Details Recorded Time 384421 Benadryl medicatio n Not available Not available Not available 05/04/202383078 7 RxNorm ESE BOO null, [place] [facility] 4 10:22:08 566585 acetamino phen / oxycodone medicatio n Not available Not available Not available 05/27/2023 12023 3 RxNorm NI BURGESS null, [place] [facility] 4 09:00:06 951441 diphenhyd ramine hydrochlo ride medicatio n Not available Not available Not available 01/04/20252022 1362 RxNorm Not Available [employer] [facility] 5 11:17:11 367163 diphenhyd ramine medicatio n Not available Not available Not available 01/04/20252022 3498 RxNorm Not Available [employer] [facility] prod 5 11:18:42 904961 oxycodone medicatio n hives Not available [facility] 01/04/20252022 7804 RxNorm Hives all over the body Not Available [employer] - prod 5 11:18:42 213042 purified protein derivativ e of tuberculi n medicatio n Not available Not available Not available 01/04/20252022 8948 RxNorm Not Available [employer] [facility] [employer] 5 11:18:42 08801 Product containin g penicilli n (product) medicatio n Not available Not available Not available 04/20/20232019 87462 8001 SNOMED Not Available [facility] 4 11:38:51 Medications Name Sig Start Date Stop Date Status Note LastModified by Organization Details LastModified Time acetaminoph en 325 mg tablet TAKE ONE DAILY FOR 14 DAYS POST OPERATIVE LY 05/03 completed Not Available Not Available Not Available atorvastati n 20 mg tablet LAURA 1 TABLETA POR VIA ORAL DELMIS VEZ AL STANLEY A LA HORA DE ACOSTARSE active Not Available Not Available No t Available albuterol sulfate 2.5 mg/3 mL (0.083 %) solution for nebulizatio n INHALAR LOS CONTENIDO S DE 1 FRASCO VIA NEBULIZAD OR CADA 4 HORAS KARLOS SEA NECESARIO PARA SIBILANCI active Not Available Not Available No t Available verapamil 40 mg tablet TAKE 1 TABLET BY MOUTH TWICE A DAY FOR 30 DAYS active Not Available Not Available No t Available polyethylen e glycol 3350 17 gram oral powder packet MIX 1 PACKET IN WATER AND TAKE BY MOUTH ONCE DAILY 05/25 completed Not Available Not Available Not Available cetirizine 10 mg tablet TAKE 1 TABLET BY MOUTH EVERY DAY FOR 30 DAYS 05/25 completed Not Available Not Available Not Available aspirin 325 mg tablet Take 1 tablet every day by oral route with meal(s) for 28 days. 2023 active Not Available Not Available Not Avai lable fluconazole 150 mg tablet TAKE 1 TABLET BY MOUTH FOR DAY 1. REPEAT IN 7 DAYS IF SYMPTOMS PERSIST. active Not Available Not Available No t Available sumatriptan 100 mg tablet TOME 1 TABLETA POR VIA ORAL SI SEA NECESARIO . PUEDE LAURA DELMIS SEGUNDA DOSIS AL MENOS 4 HORAS DESPUES DE LA PRIMERA DOSIS. SUMINISTR O PARA 30 FAGAN active Not Available Not Available No t Available senna 8.6 mg tablet LAURA 1 TABLETA POR VIA ORAL DELMIS VEZ AL STANLEY active Not Available Not Available No t Available naltrexone 50 mg tablet TAKE 1/2 TABLET BY MOUTH EVERY DAY active Not Available Not Available No t Available FreeStyle Lancets 28 gauge USAR PARA MEDIR NIVELES DE AZUCAR SIMON VECES AL STANLEY active Not Available Not Available No t Available lisinopril 20 mg tablet LAURA 1 Y 1/2 TABLETAS POR VIA ORAL DIARIAMEN TE active Not Available Not Available No t Available prednisone 20 mg tablet TAKE 3 TABLETS BY MOUTH DAILY X3 DAYS THEN 2 TABS X2 DAYS, THEN 1 TAB X2 DAYS active Not Available Not Available No t Available rizatriptan 10 mg tablet TAKE 1 TABLET BY MOUTH EVERY DAY NEEDED FOR MIGRAINE DIRECTED active Not Available Not Available No t Available metronidazo le 500 mg tablet LAURA 1 TABLETA VIA ORAL 3 VECES AL STANLEY POR 10 FAGAN. NO USE ENJUAGUE BOCAL O CONSUMA ALCOHOL HASTA 48 HORAS DESPUES DE LA ULTIMA DOSIS 09/06 completed Not Available Not Available Not Available tramadol 50 mg tablet TAKE 1 TO 2 TABLETS BY MOUTH EVERY 6 HOURS NEEDED FOR PAIN. DO NOT DRIVE WHILE TAKING THIS MEDICATIO N active Not Available Not Available No t Available amitriptyli ne 50 mg tablet LAURA DOS (2) TALBETAS POR VIA ORAL DELMIS VEZ AL STANLEY A LA HORA DE ACOSTARSE active Not Available Not Available No t Available nortriptyli ne 25 mg capsule LAURA 1 CAPSULA VIA ORAL CADA NOCHE A LA HORA DE DORMIR active Not Available Not Available No t Available hydromorpho ne 2 mg tablet TAKE 1 TABLET BY MOUTH EVERY 4 TO 6 HOURS FOR 7 DAYS NEEDED FOR POST OPERATIVE PAIN active Not Available Not Available No t Available amitriptyli ne 25 mg tablet LAURA 1 TABLETA POR VIA ORAL TODOS LOS FAGAN A LA HORA DE ACOSTARSE *EMERGENC Y REFILL* active Not Available Not Available No t Available vitamin A 3,000 mcg (10,000 unit) capsule LAURA 1 CAPSULA POR VIA ORAL DELMIS VEZ AL STANLEY active Not Available Not Available No t Available lorazepam 0.5 mg tablet TAKE 1 TABLET BY MOUTH EVERY DAY NEEDED FOR ANXIETY active Not Available Not Available No t Available rizatriptan 10 mg disintegrat ing tablet LAURA 1 TABLETA AL INICIO DE LA MIGRANA. REPETIR LA JUAN A DESPUES DE 4 HORAS SI ES NECESARIO . LEIGH 2 COMPRIMID OS/24 HORAS. active Not Available Not Available No t Available insulin aspart U-100 100 unit/mL subcutaneou s solution USE DAILY WITH INSULIN PUMP *MAX DAILY DOSE: 150 UNITS* active Not Available Not Available No t Available cephalexin 500 mg capsule TAKE 1 CAPSULE BY MOUTH FOUR TIMES A DAY FOR 7 DAYS active Not Available Not Available No t Available pantoprazol e 40 mg tablet,salvatore yed release LAURA 1 TABLETA VIA ORAL CADA STANLEY *NO ROMPA, CHUPE O SEPARE* active Not Available Not Available No t Available dexamethaso ne 4 mg tablet TAKE 1 TABLET BY MOUTH TWICE DAILY 05/25 completed Not Available Not Available Not Available buspirone 10 mg tablet LAURA DELMIS TABLETA POR VIA ORAL 3 VECES AL STANLEY PARA ANSIEDAD active Not Available Not Available No t Available docusate sodium 100 mg capsule TAKE 1 CAPSULE BY MOUTH TWICE A DAY active Not Available Not Available No t Available verapamil ER (SR) 240 mg tablet,exte nded release LAURA DELMIS (1) TABLETA POR VIA ORAL CADA STANLEY *EMERGENC Y REFILL* active Not Available Not Available No t Available hydroxyzine HCl 25 mg tablet TAKE 1 TABLET BY MOUTH EVERY 8 HOURS NEEDED FOR PRURITUS active Not Available Not Available No t Available ammonium lactate 12 % topical cream APLICAR TOPICAMEN TE KARLOS SEA NECESARIO PARA LA PIEL SECA active Not Available Not Available No t Available norethindro ne acetate 5 mg tablet TAKE 1 TABLET BY MOUTH EVERY DAY active Not Available Not Available No t Available verapamil 80 mg tablet TAKE 1 TABLET BY MOUTH TWICE A DAY active Not Available Not Available No t Available zolpidem 10 mg tablet TAKE 1 TABLET BY MOUTH EVERY DAY AT BEDTIME AT 10PM FOR SLEEP DIRECTED active Not Available Not Available No t Available albuterol sulfate HFA 90 mcg/actuati on aerosol inhaler INHALE 2 PUFFS INTO THE LUNGS EVERY 4 HOURS NEEDED FOR COUGH OR WHEEZING FOR UP TO 30 DAYS. active Not Available Not Available No t Available norethindro ne (contracept deepika) 0.35 mg tablet TAKE 1 TABLET BY MOUTH EVERY DAY FOR 84 DAYS active Not Available Not Available No t Available amitriptyli ne 100 mg tablet LAURA 1 TABLETA VIA ORAL CADA STANLEY active Not Available Not Available No t Available doxycycline hyclate 100 mg tablet TAKE 1 TABLET BY MOUTH TWICE A DAY FOR 10 DAYS 01/02 completed Not Available Not Available Not Available dicyclomine 10 mg capsule LAURA 1 CAPSULA POR VIA ORAL CUATRO VECES AL STANELY ANTES DE COMIDAS Y POR LA NOCHE active Not Available Not Available No t Available loratadine 10 mg tablet TAKE 1 TABLET BY MOUTH DAILY FOR 30 DAYS active Not Available Not Available No t Available buspirone 15 mg tablet LAURA 1 TABLETA VIA ORAL 3 VECES AL STANLEY ANTES DE LAS COMIDAS KARLOS SEA NECESARIO PARA LA ANSIEDAD active Not Available Not Available No t Available oxycodone 5 mg tablet TAKE 1 TABLET BY MOUTH EVERY 6 HOURS NEEDED FOR PAIN. DO NOT DRIVE WHILE TAKING THIS MEDICATIO N 05/03 completed Not Available Not Available Not Available Laxative (bisacodyl) 5 mg tablet,salvatore yed release TAKE 2 TABLETS BY MOUTH RIGHT BEFORE YOUR FIRST DOSE OF LIQUID PREP. 05/25 completed Not Available Not Available Not Available vitamin A palmitate 3,000 mcg (10,000 unit) capsule TAKE 1 CAPSULE BY MOUTH EVERY DAY active Not Available Not Available No t Available escitalopra m 20 mg tablet LAURA 1 TABLETA VIA ORAL CADA [place] EN [place] *DISCONTI NUE PRISTIQ* active Not Available Not Available No t Available Novolog FlexPen U-100 Insulin aspart 100 unit/mL (3 mL) subcutaneou s INJECT 100 UNITS DIRECTED DAILY. USE DAILY WITH INSULIN PUMP active Not Available Not Available No t Available cyclobenzap rine 5 mg tablet LAURA 1 TABLETA VIA ORAL CADA NOCHE A LA HORA DE DORMIR active Not Available Not Available No t Available bupropion HCl XL 150 mg 24 hr tablet, extended release LAURA 1 TABLETA VIA ORAL CADA STANLEY . NO QUIEBRE, PARTA O CHUPE active Not Available Not Available No t Available topiramate 50 mg tablet LAURA 1 TABLETA POR VIA ORAL TODOS LOS FAGAN A LA HORA DE ACOSTARSE *EMERGENC Y REFILL* active Not Available Not Available No t Available levalbutero l HFA 45 mcg/actuati on aerosol inhaler INHALE 2 BOCANADAS POR VIA ORAL CADA 4 HORAS KARLOS SEA NECESARIO PARA SILBIDOS active Not Available Not Available No t Available FreeStyle Lite Meter kit USE TO TEST BLOOD SUGAR TWICE DAILY active Not Available Not Available No t Available FreeStyle Lite Strips USE PARA EXAMINAR LA AZUCAR EN LA LIVAN SIMON VECES AL STANLEY active Not Available Not Available No t Available cholecalcif deuce (vitamin D3) 1,250 mcg (50,000 unit) capsule TAKE 1 CAPSULE BY MOUTH ONE TIME PER WEEK active Not Available Not Available No t Available ferrous sulfate 324 mg (65 mg iron) tablet,salvatore yed release LAURA DELMIS (1) TABLETA POR VIA ORAL DELMIS VEZ AL STALNEY active Not Available Not Available No t Available Lantus Solostar U-100 Insulin 100 unit/mL (3 mL) subcutaneou s pen INYECTAR 30 UNIDADES POR VIA SUBCUTANE A TODO LOS FAGAN EN [facility],MD Andersen active Not Available Not Available No t Available desvenlafax ine succinate ER 50 mg tablet,exte nded release 24 hr LAURA DELMIS TABLETA POR VIA ORAL CADA MANANA PARA DEPRESION Y ANSIEDAD 06/11 completed Not Available Not Available Not Available oxycodone HCl-oxycodo ne-ASA 1 every [address] WHILE TAKING THIS MEDICATIO N 06/11 completed Statu s: 'Curr ent'; Not Available Not Available Not Available GaviLyte-G 236 gram-22.74 gram-6.74 gram-5.86 gram oral solution FOLLOW INSTRUCTI ONS GIVEN BY OFFICE. 05/25 completed Not Available Not Available Not Available Trulicity 0.75 mg/0.5 mL subcutaneou s pen injector INYECTAR CONTENIDO S DE UN LAPIZ POR VIA SUBCUTANE A CADA SEMANA active Not Available Not Available No t Available Toujeo SoloStar U-300 Insulin 300 unit/mL (1.5 mL) subcutaneou s pen INYECTAR 8 UNIDADES SUBCUTANE AMENTE CADA NOCHE A LA HORA DE DORMIR, CUANDO NO EN LA BOMBA DE INSULINA active Not Available Not Available No t Available Toujeo Max U-300 SoloStar 300 unit/mL (3 mL) subcutaneou s insulin pen INYECTAR 13 UNIDADES POR VIA SUBCUTANE A A LA HORA DE ACOSTARSE active Not Available Not Available No t Available Dexcom G6 Sensor device APLICAR 1 DISPOSITI VO RADHA 10 FAGAN, COLOQUE DENISE NUEVO CADA 10 FAGAN active Not Available Not Available No t Available Dexcom G6 Timber Management Professor USE DIRECTED active Not Available Not Available No t Available Dexcom G6 Transmitter device USAR PARA EXAMINAR AZUCAR EN LA LIVAN ALICIA INDICADO, CAMBIAR SENSOR CADA 3 MESES active Not Available Not Available No t Available Emgality Pen 120 mg/mL subcutaneou s pen injector INYECTAR 120MG SUBCUTANE AMENTE CADA MES active Not Available Not Available No t Available Baqsimi 3 mg/actuatio n nasal spray INHALE 1 DOSE BY NASAL ROUTE NEEDED FOR OTHER (LOW BLOOD SUGAR). active Not Available Not Available No t Available Gvoke HypoPen 2-Pack 0.5 mg/0.1 mL subcutaneou s auto-inject or INJECT 1 DOSE INTO THE SKIN NEEDED (SEVERE HYPOGLYCE GRANT). active Not Available Not Available No t Available Ozempic 1 mg/dose (4 mg/3 mL) subcutaneou s pen injector INYECTAR 1MG SUBCUTANE AMENTA CADA 7 FAGAN active Not Available Not Available No t Available Omnipod 5 G6 Pods (Gen 5) subcutaneou s cartridge USE 1 DEVICE DIRECTED EVERY 3 DAYS. active Not Available Not Available No t Available Omnipod 5 G6 Intro Kit (Gen 5) subcutaneou s cartridge with controller USELO KARLOS INDICADO DIARIAMEN TE 05/25 completed Not Available Not Available Not Available Ozempic 0.25 mg or 0.5 mg (2 mg/3 mL) subcutaneou s pen injector INYECTAR 0.5MG POR VIA SUBCUTANE A CADA 7 FAGAN active Not Available Not Available No t Available Omnipod 5 G6-G7 Intro Kit(Gen 5) subcutaneou s cartridge and controller USELO KARLOS INDICADO DIARIAMEN TE active Not Available Not Available No t Available Omnipod 5 G6-G7 Pods (Gen 5) subcutaneou s cartridge CHANGE PODS EVERY 3 DAYS active Not Available Not Available No t Available Ultra-Fine Pen Needle 31 gauge x 5/16 USAR PARA INYECTAR 1-4 VECES AL STANLEY KARLOS LO INDICADO active Not Available Not Available No t Available Vitals Date Recorded Body height Body mass index (BMI) Body weight Provider Name and Address Organization Details Last Updated DateTime 03/11/2024 162.56 cm 26.6 kg/m2 93151.82 [facility] 03/11/2024 11:01:42 Date Recorded Body height Body mass index (BMI) Body weight Provider Name and Address Organization Details Last Updated DateTime 09/09/2024 162.56 cm 26.6 kg/m2 04348.82 g [facility] 09/09/2024 10:06:44 Date Recorded Body height Body mass index (BMI) Body weight Provider Name and Address Organization Details Last Updated DateTime 09/22/2023 162.56 cm 25.7 kg/m2 23744.86 g DIONNE GRIFFIN [facility] 09/22/2023 13:59:57 Date Recorded Body height Body mass index (BMI) Body weight Provider Name and Address Organization Details Last Updated DateTime 01/05/2025 162.56 cm 27.5 kg/m2 48032.78 g Nenita Mendiola [facility] 01/05/2025 15:10:31 Social History None recorded. Functional Status None recorded. Mental Status None recorded. Family History Nothing Reported. Medical History Condition Response Allergies/Hayfever N Coronary Artery Disease N Anxiety/Depression Y Emphysema N Thyroid Problems N COPD N Pacemaker N Kidney/Bladder Problems N Anemia N Vascular Disease N Gastrointestinal Disease Y Heart Attack ([place]) N Diabetes Y Autoimmune disease N Bleeding Disorder N Orthotics N Arthritis Y Seizures/Epilepsy N Blood Clot N AIDS/HIV N Congestive Heart Failure (CHF) N Acid Reflux (GERD) N Cancer N Stroke N Asthma N Peripheral Vascular Disease N Sleep Apnea N Hepatitis N Heart Disease N Rheumatoid Arthritis N Arrhythmia N Pulmonary Embolism N Fibromyalgia N Hypertension N Osteoporosis N Gynecological HistoryNo gynecological history recorded. Obstetrics History GPAL:G 0 P 0 0 0 0 Past Encounters Encounter ID Performer Location Encounter Start Date Encounter Closed Date Diagnosis/Indication Diagnosis SNOMED-CT Code Diagnosis ICD10 Code Diagnosis IMO Codes Diagnosis Note [id number] CAYLA Hughes [address] [place] [address] 05/04/2023 10:10:16 05/04/2023 14:13:37 Pain of right knee joint 6403180652 79224 M25.189 [id number] MD Susy Hawkins [address] [place] [address] 05/27/2023 08:28:36 06/24/2023 10:41:46 Chondromalacia of patella 70762096 M22.41 [id number] CAYLA Kaye [address] [place] [address] 06/25/2023 15:59:00 07/20/2023 09:06:53 Defect of articular cartilage 997867094 M24.10 [id number] ASIHA Bella PT [address] [place] [address] 06/26/2023 14:16:02 06/26/2023 15:05:45 Defect of articular cartilage 586762278 M24.10 [id number] Joshua Story, PT [facility] [address] [place] [address] 07/03/2023 13:03:46 07/03/2023 13:41:37 Defect of articular cartilage [id number] M24.10 [id number] Peggy Nicole, [employer] [facility] [address] [place] [address] 07/06/2023 11:54:49 07/06/2023 13:08:43 Defect of articular cartilage [id number] M24.10 [id number] Joshua Porsha, PT [facility] [address] [place] [address] 07/09/2023 11:48:23 07/09/2023 12:55:33 Defect of articular cartilage [id number] M24.10 [id number] Joshuakarri Martellmike, PT [facility] [address] [place] [address] 07/15/2023 11:55:20 07/15/2023 13:02:51 Defect of articular cartilage [id number] M24.10 [id number] Joshua Story, PT [facility] [address] [place] [address] 07/20/2023 11:50:23 07/20/2023 12:57:57 Defect of articular cartilage [id number] M24.10 [id number] Eduardo Garza, [employer] [facility] [address] [place] [address] 07/24/2023 12:55:00 07/24/2023 15:25:24 Defect of articular cartilage [id number] M24.10 [id number] Arvind Martinez MD [facility] [address] [place] [address] 08/06/2023 14:04:15 08/26/2023 14:31:20 Pain of right knee joint [id number] M25.731 [id number] Eduardo Garza, [employer] [facility] [address] [place] [address] 09/07/2023 12:57:22 09/07/2023 13:56:01 Defect of articular cartilage [id number] M24.10 [id number] Basil Garcia PA-C [facility] [address] [place], [place] [address] 09/22/2023 13:48:13 10/15/2023 14:57:15 Osteoarthritis of knee [id number] M17.12 [id number] CAYLA Kaye [facility] [address], [place] [address] 03/11/2024 10:44:10 03/24/2024 12:27:03 Chondromalacia of right patella [id number] M22.41 [id number] You have been provided with a cortisone injection in order to reduce the pain and inflammati on that you are experienci ng. The injection consists of two medication s. Cortisone (an anti-infla mmatory that will take 48-72 hours to take effect) and Lidocaine (a numbing agent that will last 2-3 hours). Please note that not everyone will have a lasting response following the injection. PATIENT INSTRUCTIO NSOnce the Lidocaine wears off, you may have an increase in your pain. I recommend icing the affected area for 20 minutes 3-4 times per day.It is recommende d that you refrain from any high level activities using the joint or limb that was injected for approximat cong 24-48 hours. Normal day-to-day activities are generally not a problem.PO SSIBLE SIDE EFFECTSInd ividuals with dark complexion s may experience some skin discolorat ion locally at the site of the injection. There is the possibilit y of an increase in discomfort within 48 hours following the injection. This is called a carla drake . To help minimize the chances of this, please see the post-injec tion instructio ns above.Ther e is a less than 1% chance of an infection. If you notice any signs of infection (redness, warmth, drainage, fever greater than 100 degrees) please call our office or contact us through the portal [facility]. Chondromal acia of left patella [id number] M22.42 [id number] CAYLA Kaye [address] [place] [address] 09/09/2024 09:40:15 09/23/2024 14:19:03 Primary gonarthrosis, bilateral [id number] M17.0 [id number] Health Concerns Section Related Observation LastModified by Organization Detai ls LastModified Time None Recorded Concern Status LastModified by Organization Details LastModified Time None Recorded Advance Directives Directive None Recorded Payers Insurance Date Sequence Insurance Name Policy Number Policy Murray Covered Member ID Murray Member ID Guarantor Name 06/23/2023 1 [facility] [employer] - DOS ON OR AFTER 2022 - ONE CARE (MEDICARE REPLACEMENT/AD VANTAGE - HMO) [facility] [place] [id number] [facility] [place] 06/24/2023 1 [facility] [employer] - DOS ON OR AFTER 2022 - [employer] (MEDICARE REPLACEMENT/AD VANTAGE - HMO) Lo Avila [id number] [facility] [place] 06/24/2023 2 [facility] [employer] - DOS ON OR AFTER 2022 - ONE CARE (MEDICARE REPLACEMENT/AD VANTAGE - HMO) Lo Avila [id number] [facility] [place] 01/05/2025 1 [facility] [employer] - DOS ON OR AFTER 2022 - ONE CARE (MEDICARE REPLACEMENT/AD VANTAGE - HMO) [facility] [place] [id number] [facility] [place] Notes Date Note Type Note Provider Name and Address Organization Details Recorded Time 09/22/2023 text/html I am seeing the patient today under the supervision of who was available but who did not see the patient. Patient comes in for recheck of left knee pain. Has history of chondromalacia patella of the left knee underwent cortisone injection by a colleague back in February which did give her excellent temporary relief of symptoms. Patient states that she is having increased pain discomfort over the anterior and lateral aspect of that left knee. She does not recall any specific injury to account for this. Patient believes that it is due to increased compensation secondary to her recent right knee surgery. No other recent treatments or modalities. Basil Garcia PA-C [address], [place], [address], [facility] 09/23/2023 08:29:39 03/11/2024 text/html I am seeing the patient today under the supervision of Dr. Kingsley who was available but who did not see the patient. HPI: Patient comes in for recheck of bilateral knee pain. Has known osteoarthritis patellofemoral joint. Has undergone cortisone injections in the past with good relief to the left knee only. Does have history of bio cartilage 9 months postop right knee starting developing some pain discomfort in the same distribution as the left knee. No other recent treatments or modalities to the right knee. Complains of same pain today over the anterior aspect of the knee. Difficulty with the flexion activities. No new injury. No other modalities. Physical exam: The patient is well appearing and in no apparent distress. Alert and oriented x3. Gait is symmetric. Vital signs per intake sheet. Examination of bilateral knee reveals no joint effusion erythema or warmth. No joint line tenderness. Tenderness over the lateral border of the patella. Supple range of motion to 120 . No ligamentous instability. Calf soft and nontender. Assessment: Osteoarthritis patellofemoral joint Plan: Nature diagnosis discussed with the patient today. wing coverer services utilized for this visit. At this time recommend a repeat cortisone injection in the left knee, trial cortisone injection of the right knee. . Patient agrees. See Procedure note. Postinjection precautions reviewed. Follow-up as symptoms dictate. Basil Garcia PA-C [address], [place], [address], [facility] 03/11/2024 11:46:44 09/09/2024 text/html I am seeing the patient today under the supervision of Dr. Kingsley who was available but who did not see the patient. HPI: Patient comes in for recheck of bilateral knee pain. Has known osteoarthritis patellofemoral joint. Has undergone cortisone injections in the past with good relief . Does have history of bio cartilage right knee starting developing some pain discomfort in the same distribution as the left knee. No other recent treatments or modalities to the right knee. Complains of same pain today over the anterior aspect of the knee. Difficulty with the flexion activities. No new injury. No other modalities. Physical exam: The patient is well appearing and in no apparent distress. Alert and oriented x3. Gait is symmetric. Vital signs per intake sheet. Examination of bilateral knee reveals no joint effusion erythema or warmth. No joint line tenderness. Tenderness over the lateral border of the patella. Supple range of motion to 120 . No ligamentous instability. Calf soft and nontender. Assessment: Osteoarthritis patellofemoral joint Plan: Nature diagnosis discussed with the patient today. wing coverer services utilized for this visit. At this time recommend a repeat cortisone injection in the left knee, trial cortisone injection of the right knee. . Patient agrees. See Procedure note. Postinjection precautions reviewed. Follow-up as symptoms dictate. Basil Garcia PA-C [address] [facility] [address], [place], [address], [facility] 09/09/2024 10:34:11 OBGyn Episode No OBEpisode recorded.
== END 2025-01-05 11:12 | disposition home or self-care (01) ==
LOC: HO.HSM 10:38
PROVIDERS: PCP Internal Medicine; Visit Provider Registered Nurse
DX: G43.909 Migraine, unspecified, not intractable, without status migrainosus (principal); G44.209 Tension-type headache, unspecified, not intractable; R41.3 Other amnesia; J32.2 Chronic ethmoidal sinusitis
CPT/HCPCS: 99214